=== PATIENT | female | born 1935 | race Caucasian/White ===

== ENCOUNTER 2017-03-07 20:18 | Inpatient (IN) | payer MEDICARE, BC ==
--- NOTE | 2017-03-07 21:13 | EDM.PDOC ---
ED HPI GENERAL MEDICAL PROBLEM - General Chief Complaint: Fever Stated Complaint: fever Time Seen by Provider: 03/07/17 20:22 Source of Information: Reports: Patient, Family, RN, RN Notes Reviewed History Limitations: Reports: No Limitations - History of Present Illness INITIAL COMMENTS - FREE TEXT/NARRATIVE: Patient presents to the ED at [facility] with a two day history of fevers, ranging 100-102 orally. Patient states she had felt chilled at times. Patient states she has been feeling more SOB and dyspneic. She does have an upper airway cough, producing a yellow purulent sputum. Patient denies any chest pain. No focal neurological deficits. No focal weakness. Patient states her appetite has been ok, but she admits to not really being a big eater. No N/V/D. According to the patient, she had been given Tylenol at Assisted Living. Patient states she is trying to stay well hydrated with good PO fluid intake. She is feeling more generally weak than usual. Onset: Gradual - Related Data Allergies Allergy/AdvReac Type Severity Reaction Status Date / Time nitrofurantoin Allergy Unknown Cannot Verified 03/07/17 20:40 [From Macrobid] Remember nitrofurantoin Allergy Unknown Cannot Verified 03/07/17 20:40 macrocrystalline Remember [From Macrobid] Penicillins Allergy Unknown Cannot Verified 03/07/17 20:40 Remember Sulfa (Sulfonamide Allergy Cannot Verified 03/07/17 20:40 Antibiotics) Remember alendronate sodium AdvReac Intermediate Nausea Verified 03/07/17 20:40 [From Fosamax] Home Meds: Home Meds Albuterol Sulfate [Albuterol Sulfate HFA] 2 inh IH Q4H PRN 04/18/14 [History] Calcium Carbonate 1,500 mg PO DAILY 04/18/14 [History] Fluticasone/Salmeterol [Advair 100-50] 1 puff INH BID 04/18/14 [History] Metoprolol Tartrate [Lopressor] 25 mg PO BID 04/18/14 [History] Omeprazole Magnesium [Prilosec Otc] 20 mg PO DAILY 04/18/14 [History] Polyethylene Glycol 3350 [MiraLAX] 17 gm PO DAILY PRN 04/18/14 [History] Aspirin 1 tab PO DAILY 03/08/15 [History] Cholecalciferol (Vitamin D3) [Vitamin D3] 2,000 units PO DAILY 03/08/15 [History ] Multivitamin with Minerals [Multiple Vitamin] 1 tab PO DAILY 03/08/15 [History] atorvaSTATin [Lipitor] 20 mg PO BEDTIME #30 tablet 03/17/15 [Rx] Acetaminophen [Tylenol] 650 mg PO Q4H PRN 07/19/16 [History] Ergocalciferol (Vitamin D2) [Vitamin D2] 2,000 unit PO DAILY 07/19/16 [History] Ondansetron [Zofran ODT] 4 mg PO DAILY PRN 07/19/16 [History] Umeclidinium [place] [Incruse Ellipta] 1 puff IH DAILY 07/19/16 [History] Oxybutynin [Oxybutynin ER] 5 mg PO BEDTIME #30 tab.er 08/01/16 [Rx] Cyanocobalamin (Vitamin B-12) [B-12 Dots] 500 mcg PO DAILY 03/07/17 [History] Past Medical History HEENT History: Reports: Macular Degeneration Cardiovascular History: Reports: Arrhythmia, [place] Respiratory History: Reports: COPD Gastrointestinal History: Reports: Other (See Below) Other Gastrointestinal History: sotelo esophagitis Genitourinary History: Reports: None 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 Musculoskeletal History: Reports: None, Osteoarthritis Neurological History: Reports: CVA Oncologic (Cancer) History: Reports: Breast - Past Surgical History HEENT Surgical History: Reports: Cataract Surgery Female Surgical History: Reports: Section, Mastectomy, Tubal Ligation Musculoskeletal Surgical History: Reports: Hip Replacement Social & Family History - Family History Cardiac: Reports: ME Respiratory: Reports: COPD OBGYN: Reports: Musculoskeletal: Reports: Osteoarthritis Oncologic: Reports: Breast - Tobacco Use Smoking Status *Q: Former Smoker Years of Tobacco use: 20 Packs/Tins Daily: 1 Used Tobacco, but Quit: Yes Month Tobacco Last Used: June Second Hand Smoke Exposure: No - Caffeine Use Caffeine Use: Reports: Coffee - Alcohol Use Days Per Week of Alcohol Use: 0 - Recreational Drug Use Recreational Drug Use: No ED ROS GENERAL - Review of Systems Review Of Systems: See Below Constitutional: Reports: Fever, Chills, Weakness, Decreased Appetite HEENT: Reports: No Symptoms Respiratory: Reports: Shortness of Breath, Cough, Sputum. Denies: Wheezing Cardiovascular: Reports: Dyspnea on Exertion. Denies: Chest Pain, Lightheadedness, Palpitations GI/Abdominal: Denies: Abdominal Pain, Nausea, Vomiting Skin: Reports: No Symptoms Neurological: Reports: Weakness. Denies: Dizziness, Headache ED EXAM, SEPSIS - Physical Exam Exam: See Below Exam Limited By: No Limitations General Appearance: Alert, No Apparent Distress, Thin, Cachetic Ears: Normal External Exam, Normal Canal, Normal TMs Throat/Mouth: Pharyngeal Erythema Neck: Supple Respiratory/Chest: No Respiratory Distress, Decreased Breath Sounds Cardiovascular: No Edema, No Murmur, Tachycardia Peripheral Pulses: 2+: Radial (L), Radial (R) GI/Abdominal: Soft, Non-Tender, Hypoactive Bowel Sounds Extremities: Normal Inspection Neurological: Alert, Oriented Skin: Warm, Dry, Intact, Normal Color, No Rash Course - Vital Signs Last Recorded V/S: Last Vital Signs Temp 37.7 C 03/07/17 20:30 Pulse 111 H 03/07/17 20:30 Resp 18 03/07/17 20:30 BP 129/52 L 03/07/17 20:30 Pulse Ox 93 L 03/07/17 20:30 - Orders/Labs/Meds Orders: Active Orders 24 hr Category Date Time Status Chest 2V [CR] Stat Exams 03/07/17 20:40 Taken CULTURE BLOOD [BC] Stat Lab 03/07/17 21:00 Received CULTURE BLOOD [BC] Stat Lab 03/07/17 21:15 Received UA W/MICROSCOPIC [URIN] Stat Lab 03/07/17 20:39 Uncollected Sodium Chloride 0.9% [Saline Flush] Med 03/07/17 20:41 Active 10 ml FLUSH ASDIRECTED PRN Blood Culture x2 Reflex Set [OM.PC] Stat Oth 03/07/17 20:38 Ordered Peripheral IV Insertion Adult [OM.PC] Routine Oth 03/07/17 20:41 Ordered Medication Orders Sodium Chloride (Saline Flush) 10 ml FLUSH ASDIRECTED PRN PRN Reason: Keep Vein Open Labs: Laboratory Tests 03/07/17 03/07/17 03/07/17 Range/Units 21:00 21:00 21:00 WBC 15.1 H (4.0-10.0) x10^3/uL RBC 3.80 L (4.00-5.50) x10^6/uL Hgb 11.3 L D (12.0-16.0) g/dL Hct 35.0 (33.0-47.0) % MCV 92.1 (78.0-93.0) fL MCH 29.7 (26.0-32.0) pg MCHC 32.3 (32.0-36.0) g/dL RDW Coeff of Gamaliel 14.2 (10.0-15.0) % Plt Count 170 (130-400) x10^3/uL Neut % (Auto) 83.8 H (50.0-80.0) % Lymph % (Auto) 7.2 L (25.0-50.0) % [place] % (Auto) 8.8 (2.0-11.0) % Eos % (Auto) 0.1 (0.0-4.0) % Baso % (Auto) 0.1 L (0.2-1.2) % Sodium 139 (136-145) mmol/L Potassium 4.0 (3.5-5.1) mmol/L Chloride 101 (98-107) mmol/L Carbon Dioxide 27 (21-32) mmol/L BUN 14 (7-18) mg/dL Creatinine 1.1 H (0.55-1.02) mg/dL Est Cr Clr Drug Dosing TNP Estimated GFR (MDRD) 47 Glucose 126 H (74-106) mg/dL Lactic Acid 1.1 (0.4-2.0) mmol/L Calcium 9.0 (8.5-10.1) mg/dL C-Reactive Protein 26.9 H (<=0.9) mg/dL Meds: Medications Generic Name Dose Route Start Last Admin Trade Name Freq PRN Reason Stop Dose Admin Sodium Chloride 10 ml 03/07/17 20:41 Saline Flush FLUSH ASDIRECTED PRN Keep Vein Open Discontinued Medications Generic Name Dose Route Start Last Admin Trade Name Freq PRN Reason Stop Dose Admin Sodium Chloride 1,000 mls @ 999 mls/hr 03/07/17 20:42 03/07/17 21:15 Normal Saline IV 03/07/17 21:42 999 mls/hr ONETIME ONE Administration Departure - Departure Time of Disposition: 21:58 Disposition: Admitted As Inpatient 64 Condition: Fair Clinical Impression: Elevated C-reactive protein, Shortness of breath Pneumonia Qualifiers: Pneumonia type: due to unspecified organism Laterality: left Lung location: lower lobe of lung Qualified Code(s): J18.1 - Lobar pneumonia, unspecified organism Leukocytosis Qualifiers: Leukocytosis type: unspecified Qualified Code(s): D72.829 - Elevated white blood cell count, unspecified - Discharge Information - Problem List & Annotations (1) Pneumonia SNOMED Code(s): 945110976 Code(s): J18.9 - PNEUMONIA, UNSPECIFIED ORGANISM Status: Acute Current Visit: Yes Qualifiers: Pneumonia type: due to unspecified organism Laterality: left Lung location: lower lobe of lung Qualified Code(s): J18.1 - Lobar pneumonia, unspecified organism (2) Leukocytosis SNOMED Code(s): 261992013, 821526943 Code(s): D72.829 - ELEVATED WHITE BLOOD CELL COUNT, UNSPECIFIED Status: Acute Current Visit: Yes Qualifiers: Leukocytosis type: unspecified Qualified Code(s): D72.829 - Elevated white blood cell count, unspecified (3) Shortness of breath SNOMED Code(s): 444999447 Code(s): R06.02 - SHORTNESS OF BREATH Status: Acute Current Visit: Yes (4) Elevated C-reactive protein SNOMED Code(s): 349388688 Code(s): R79.82 - ELEVATED C-REACTIVE PROTEIN (CRP) Status: Acute Current Visit: Yes (5) Fever SNOMED Code(s): 530547900 Code(s): R50.9 - FEVER, UNSPECIFIED Status: Acute Current Visit: Yes Qualifiers: Fever type: unspecified Qualified Code(s): R50.9 - Fever, unspecified - Problem List Review Problem List Initiated/Reviewed/Updated: Yes - My Orders Last 24 Hours: My Active Orders 03/07/17 20:38 Blood Culture x2 Reflex Set [OM.PC] Stat 03/07/17 20:39 UA W/MICROSCOPIC [URIN] Stat 03/07/17 20:40 Chest 2V [CR] Stat 03/07/17 20:41 Sodium Chloride 0.9% [Saline Flush] 10 ml FLUSH ASDIRECTED PRN Peripheral IV Insertion Adult [OM.PC] Routine 03/07/17 21:00 CULTURE BLOOD [BC] Stat 03/07/17 21:15 CULTURE BLOOD [BC] Stat - Assessment/Plan Admission H&P: Please use this note as an admission H&P Last 24 Hours: My Active Orders 03/07/17 20:38 Blood Culture x2 Reflex Set [OM.PC] Stat 03/07/17 20:39 UA W/MICROSCOPIC [URIN] Stat 03/07/17 20:40 Chest 2V [CR] Stat 03/07/17 20:41 Sodium Chloride 0.9% [Saline Flush] 10 ml FLUSH ASDIRECTED PRN Peripheral IV Insertion Adult [OM.PC] Routine 03/07/17 21:00 CULTURE BLOOD [BC] Stat 03/07/17 21:15 CULTURE BLOOD [BC] Stat
[2017-03-07] MEDS: Sodium Chloride 0.9% 1,000 ML IV ONE ×2 (21:15→23:51)
[2017-03-07 21:46] LABS: CHLORIDE,CL 101 mmol/L (98-107); SODIUM,NA 139 mmol/L (136-145)
[2017-03-07] MEDS ORDERED: Azithromycin 250 MG Tab PO ONE (22:46)
[2017-03-07] MEDS ORDERED: Polyethylene Glycol 3350 Powder 17 GM Packet PO PRN (22:47)
[2017-03-07] MEDS ORDERED: cefTRIAXone 1 GM Vial IVPUSH STA (22:49)
[2017-03-07] MEDS: Sodium Chloride 0.9% 10 ML Syringe FLUSH PRN (23:02)
--- NOTE | 2017-03-07 23:02 | PCM.HP ---
H&P History of Present Illness - General Date of Service: 03/07/17 Source of Information: Patient History Limitations: Reports: No Limitations - History of Present Illness Initial Comments - Free Text/Narative: Mrs. Hernandez is an 81 yo female with PMH of emphysema, hypertension, CAD, cerebrovascular disease, pulmonary nodules, hyperglycemia, hyperlipidemia, tobacco use disorder, vascular dementia, mixed incontinence, osteoporosis, and DJD (back, knees, hips) who presented to the ED this evening mainly for upper chest pain and fever (Tmax 102.8). She has had 4 days of decreased appetite, cough, and shortness of breath. She had some vomiting and abdominal pain earlier in the week but that has since resolved. She states that her chest pain was not really chest pain but that it was really a sore throat, which is also now resolved. She denies any true chest pain. She has overall been feeling unwell and weak also throughout the week. The fever is not new today but has been slowly increasing to the maximum recording today. She denies any known sick contacts. She has not taken any OTC medications. ADDENDUM: After coming up to the floor, the patient noted she was having chest pain. The pain is located substernally in the upper chest and radiates into her throat. She now states that she has been having this pain off and on all day. It is rated 4-5/10 and does not radiate anywhere. She has mildly increased shortness of breath but no nausea or diaphoresis. She states this is not sharp or changing with coughing or deep breaths and it is not feel like prior ACS. 2nd ADDENDUM: Pain is now completely resolved within minutes of getting the Tums. - Related Data Allergies/Adverse Reactions: Allergies Allergy/AdvReac Type Severity Reaction Status Date / Time nitrofurantoin Allergy Unknown Cannot Verified 03/07/17 20:40 [From Macrobid] Remember nitrofurantoin Allergy Unknown Cannot Verified 03/07/17 20:40 macrocrystalline Remember [From Macrobid] Penicillins Allergy Unknown Cannot Verified 03/07/17 20:40 Remember Sulfa (Sulfonamide Allergy Cannot Verified 03/07/17 20:40 Antibiotics) Remember alendronate sodium AdvReac Intermediate Nausea Verified 03/07/17 20:40 [From Fosamax] Home Medications: Home Meds Albuterol Sulfate [Albuterol Sulfate HFA] 2 inh IH Q4H PRN 04/18/14 [History] Calcium Carbonate 1,500 mg PO DAILY 04/18/14 [History] Fluticasone/Salmeterol [Advair 100-50] 1 puff INH BID 04/18/14 [History] Metoprolol Tartrate [Lopressor] 25 mg PO BID 04/18/14 [History] Omeprazole Magnesium [Prilosec Otc] 20 mg PO DAILY 04/18/14 [History] Polyethylene Glycol 3350 [MiraLAX] 17 gm PO DAILY PRN 04/18/14 [History] Aspirin 1 tab PO DAILY 03/08/15 [History] Cholecalciferol (Vitamin D3) [Vitamin D3] 2,000 units PO DAILY 03/08/15 [History ] Multivitamin with Minerals [Multiple Vitamin] 1 tab PO DAILY 03/08/15 [History] atorvaSTATin [Lipitor] 20 mg PO BEDTIME #30 tablet 03/17/15 [Rx] Acetaminophen [Tylenol] 650 mg PO Q4H PRN 07/19/16 [History] Ergocalciferol (Vitamin D2) [Vitamin D2] 2,000 unit PO DAILY 07/19/16 [History] Ondansetron [Zofran ODT] 4 mg PO DAILY PRN 07/19/16 [History] Umeclidinium [place] [Incruse Ellipta] 1 puff IH DAILY 07/19/16 [History] Oxybutynin [Oxybutynin ER] 5 mg PO BEDTIME #30 tab.er 08/01/16 [Rx] Cyanocobalamin (Vitamin B-12) [B-12 Dots] 500 mcg PO DAILY 03/07/17 [History] Past Medical History HEENT History: Reports: Cataract, Glaucoma, Macular Degeneration Cardiovascular History: Reports: Arrhythmia, CAD, High Cholesterol, Hypertension , [place] Respiratory History: Reports: COPD Gastrointestinal History: Reports: PUD, Other (See Below) Other Gastrointestinal History: sotelo esophagitis Genitourinary History: Reports: None 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 Musculoskeletal History: Reports: Osteoarthritis Neurological History: Reports: CVA, Other (See Below) (vascular dementia) Psychiatric History: Reports: None Endocrine/Metabolic History: Reports: Osteoporosis Hematologic History: Reports: Anemia Immunologic History: Reports: None Oncologic (Cancer) History: Reports: Breast Dermatologic History: Reports: None - Infectious Disease History Infectious Disease History: Reports: None - Past Surgical History HEENT Surgical History: Reports: Cataract Surgery GI Surgical History: Reports: Cholecystectomy Female Surgical History: Reports: Section, Hysterectomy, Mastectomy , Salpingo-Oophorectomy, Tubal Ligation Musculoskeletal Surgical History: Reports: Hip Replacement Social & Family History - Family History Cardiac: Reports: [place] Respiratory: Reports: COPD OBGYN: Reports: Musculoskeletal: Reports: Osteoarthritis Oncologic: Reports: Breast, Other (See Below) (stomach) - Tobacco Use Smoking Status *Q: Current Every Day Smoker Tobacco Use Within Last Twelve Months: Cigarettes Years of Tobacco use: 20 Packs/Tins Daily: 1 Used Tobacco, but Quit: Yes Tobacco Last Used: June Hand Smoke Exposure: No - Caffeine Use Caffeine Use: Reports: Coffee - Alcohol Use Alcohol Use History: No Days Per Week of Alcohol Use: 0 - Recreational Drug Use Recreational Drug Use: No - Living Situation & Occupation Living situation: Reports: , Assisted Living Occupation: Retired H&P Review of Systems - Review of Systems: Review Of Systems: See Below General: Reports: Fever, Malaise, Weakness HEENT: Reports: No Symptoms Pulmonary: Reports: Shortness of Breath, Cough Cardiovascular: Reports: No Symptoms Gastrointestinal: Reports: No Symptoms Genitourinary: Reports: No Symptoms Musculoskeletal: Reports: No Symptoms Skin: Reports: No Symptoms Neurological: Reports: No Symptoms Exam - Exam Exam: See Below - Vital Signs Vital Signs: Last Vital Signs Temp 37.7 C 03/07/17 20:30 Pulse 111 H 03/07/17 20:30 Resp 18 03/07/17 20:30 BP 129/52 L 03/07/17 20:30 Pulse Ox 93 L 03/07/17 20:30 Weight: 50.893 kg - Exam General: Alert, Oriented, Cooperative HEENT: Conjunctiva Clear, Mucosa Moist & [place], Posterior Pharynx Clear, Pupils Equal, Pupils Reactive, TMs Clear Neck: Supple, Trachea Midline. No: Lymphadenopathy, Thyromegaly Lungs: Decreased Breath Sounds (LLL), Crackles (LLL) Cardiovascular: Regular Rhythm, Normal S1, Normal S2, Tachycardia. No: Systolic Murmur, Diastolic Murmur Abdomen: Normal Bowel Sounds, Soft. No: Organomegaly, Peritoneal Signs, Distention, Tenderness, Mass Extremities: Normal Inspection, Normal Pulses. No: Edema Skin: Warm, Dry, Intact Neurological: No: Focal Deficit - Patient Data Result Diagrams: 03/07/17 21:00 03/07/17 21:00 *Q Meaningful Use (ADM) - VTE *Q VTE Criteria *Q: - Stroke *Q Stroke Criteria *Q: - AMI *Q AMI Criteria *Q: - Problem List (1) Sepsis SNOMED Code(s): 86376847 ICD Code: A41.9 - SEPSIS, UNSPECIFIED ORGANISM Status: Acute Current Visit: Yes Problem Details: - Diagnosis made based on tachycardia, fever, and leukocytosis. - Secondary to pneumonia. No other symptoms to suggest alternative source but urine will be obtained to exclude this. - IV fluids overnight. - Antibiotics as below. Qualifiers: Sepsis type: sepsis due to unspecified organism Qualified Code(s): A41.9 - Sepsis, unspecified organism (2) Community acquired pneumonia SNOMED Code(s): 820446475 ICD Code: J18.9 - PNEUMONIA, UNSPECIFIED ORGANISM Status: Acute Current Visit: Yes Problem Details: - Patient has history, exam, labs, and x-ray findings supporting the diagnosis of pneumonia. - No MDR risk factors. - Therefore, will treat with ceftriaxone and azithromycin. She has PCN listed on her allergies here but this is not on her list in [facility] and she has received cefazolin, cephalexin, and augmentin all within the past year (augmentin was 1 month ago). In this case, it should be fine to go ahead and treat with ceftriaxone. (3) COPD (chronic obstructive pulmonary disease) SNOMED Code(s): 24544328 ICD Code: J44.9 - CHRONIC OBSTRUCTIVE PULMONARY DISEASE, UNSPECIFIED Status : Chronic Priority: High Current Visit: No Problem Details: - No exam findings to suggest COPD exacerbation at this time. - Therefore, will leave neb treatments PRN and hold off on prednisone. - Will reconsider depending on clinical course. Qualifiers: COPD type: emphysema Emphysema type: unspecified Qualified Code(s): J43.9 - Emphysema, unspecified (4) Chest pain SNOMED Code(s): 25878461 ICD Code: R07.9 - CHEST PAIN, UNSPECIFIED Status: Acute Current Visit: Yes Problem Details: - EKG was obtained at the time of chest pain and is unremarkable. - Will also get a troponin but my suspicion for cardiac ischemia is very low. I also do not feel the likelihood of PE is high either based on absence of risk factors and other more plausible causes. - More likely GI based on radiation into the throat and resolution with Tums. - If tachycardia does not improve overnight and chest pain recurs, will reconsider PE tomorrow and get a d-dimer. Qualifiers: Chest pain type: other chest pain Qualified Code(s): R07.89 - Other chest pain; R07.8 - Other chest pain Problem List Initiated/Reviewed/Updated: Yes Orders Last 24hrs: Active Orders 24 hr Category Date Time Status Notify Provider Vital Signs [RC] ASDIRECTED Care 03/07/17 22:38 Ordered Oxygen Therapy [RC] PRN Care 03/07/17 22:38 Ordered Up With Assistance [RC] ASDIRECTED Care 03/07/17 22:38 Ordered VTE/DVT Education [RC] PER UNIT ROUTINE Care 03/07/17 22:38 Ordered VTE/DVT Education [RC] PER UNIT ROUTINE Care 03/07/17 22:43 Ordered Vital Signs [RC] Q4H Care 03/07/17 22:38 Ordered Regular Diet [DIET] Diet 03/08/17 Breakfast Ordered Acetaminophen [Tylenol] Med 03/07/17 22:38 Ordered 650 mg PO Q4H PRN Aspirin Med 03/08/17 08:00 Ordered 1 tab PO DAILY Azithromycin [Zithromax] Med 03/07/17 22:45 Ordered 250 mg PO Q24H Enoxaparin [Lovenox] Med 03/08/17 08:00 Ordered 40 mg SUBCUT DAILY Fluticasone/Salmeterol [Advair 100-50] Med 03/08/17 08:00 Ordered 1 puff INH BID Metoprolol Tartrate [Lopressor] Med 03/08/17 08:00 Ordered 25 mg PO BID Omeprazole Magnesium [Prilosec Otc] Med 03/08/17 08:00 Ordered 20 mg PO DAILY Oxybutynin [Oxybutynin ER] Med 03/08/17 08:00 Ordered 5 mg PO DAILY Polyethylene Glycol 3350 [MiraLAX] Med 03/07/17 22:47 Ordered 17 gm PO DAILY PRN Umeclidinium [place] [Incruse Ellipta] Med 03/08/17 08:00 Ordered 1 puff IH DAILY atorvaSTATin [Lipitor] Med 03/08/17 20:00 Ordered 20 mg PO BEDTIME Resuscitation Status Routine Resus Stat 03/07/17 22:38 Ordered Medication Orders Acetaminophen (Tylenol) 650 mg PO Q4H PRN PRN Reason: Pain (Mild 1-3)/fever Aspirin (Aspirin) mg PO DAILY ZACKARY Atorvastatin Calcium (Lipitor) 20 mg PO BEDTIME ZACKARY Azithromycin (Zithromax) 250 mg PO Q24H ZACKARY Enoxaparin Sodium (Lovenox) 30 mg SUBCUT DAILY ZACKARY Metoprolol Tartrate (Lopressor) 25 mg PO BID ZACKARY Non-Formulary Medication (Fluticasone/Salmeterol [Advair 100-50]) 1 puff INH BID ZACKARY Non-Formulary Medication (Omeprazole Magnesium [Prilosec Otc]) 20 mg PO DAILY ZACKARY Non-Formulary Medication (Umeclidinium [place] [Incruse Ellipta]) 1 puff IH DAILY ZACKARY Oxybutynin Chloride (Oxybutynin Er) 5 mg PO DAILY ZACKARY Polyethylene Glycol (Miralax) 17 gm PO DAILY PRN PRN Reason: Constipation Sodium Chloride (Saline Flush) 10 ml FLUSH ASDIRECTED PRN PRN Reason: Keep Vein Open Assessment/Plan Comment:: 81 yo female admitted with CAP after presenting with shortness of breath, cough , and fevers. Will treat with IV ceftriaxone and PO azithromycin as above. Will do IV fluids overnight. Can have nebs PRN. Troponin will be done for assessment of chest pain but this is presumed to be GI. Tums PRN. Otherwise, continue home medications with the exception of her vitamins. Patient wishes to be DNR/DNI. She will likely be on lovenox for VTE prophylaxis but we will reassess in the morning and start it then. Anticipate 48-72 hour hospital stay.
[2017-03-07] MEDS ORDERED: Calcium Carbonate 750 MG Tab.Chew PO PRN (23:30)
[2017-03-07] MEDS ORDERED: Sodium Chloride 0.9% 1,000 ML IV SCH (23:45)
[2017-03-07] MEDS: Acetaminophen 325 MG Tab PO PRN (23:55)
[2017-03-08] MEDS: Ipratropium 0.02% 0.5 MG/2.5 ML Neb Soln NEB SCH ×4 (00:44→18:28)
[2017-03-08 07:45] LABS: CHLORIDE,CL 108 mmol/L (98-107); SODIUM,NA 144 mmol/L (136-145)
[2017-03-08] MEDS: Metoprolol Tartrate 25 MG Tab PO SCH ×2 (07:54→20:20)
[2017-03-08] MEDS: Omeprazole 20 MG Cap.CR PO SCH (07:54)
[2017-03-08] MEDS: Aspirin 81 MG Tab.Chew PO SCH (07:54)
[2017-03-08] MEDS: Formoterol/Mometasone 100-5 MCG 8.8 GM Inhaler IH SCH ×2 (07:56→20:20)
[2017-03-08] MEDS ORDERED: Oxybutynin 5 MG Tab.ER PO SCH (08:00)
[2017-03-08] MEDS ORDERED: Enoxaparin 30 MG/0.3 ML Syringe SUBCUT SCH (08:00)
[2017-03-08] MEDS ORDERED: Albuterol 0.083% 2.5 MG/3 ML Neb Soln NEB PRN (10:12)
--- NOTE | 2017-03-08 10:13 | PCM.PN ---
- General Info Date of Service: 03/08/17 Subjective Update: Feels about the same this morning. Still having the intermittent chest discomfort. Breathing is about the same. No fever or chills. Appetite remains poor but she has had no vomiting or diarrhea. - Review of Systems General: Reports: No Symptoms HEENT: Reports: no symptoms Pulmonary: Reports: shortness of breath, cough Cardiovascular: Reports: Chest Pain. Denies: Dyspnea on Exertion, Edema, Lightheadedness Gastrointestinal: Reports: No symptoms Genitourinary: Reports: no symptoms Musculoskeletal: Reports: no symptoms Skin: Reports: no symptoms - Patient Data Vitals - most recent: Last Vital Signs Temp 36.8 C 03/08/17 10:00 Pulse 94 03/08/17 10:00 Resp 18 03/08/17 10:00 BP 110/86 03/08/17 10:00 Pulse Ox 96 03/08/17 10:00 Weight - most recent: 50.893 kg I&O - last 24 hours: Intake & Output 03/07/17 03/08/17 03/08/17 22:59 06:59 14:59 Intake Total 1424 Output Total 550 Balance 874 Lab Results last 24 hrs: Laboratory Results - last 24 hr 03/08/17 03/08/17 03/08/17 Range/Units 00:09 07:04 07:04 WBC 10.5 H (4.0-10.0) x10^3/uL RBC 3.15 L (4.00-5.50) x10^6/uL Hgb 9.5 L D (12.0-16.0) g/dL Hct 29.2 L (33.0-47.0) % MCV 92.7 (78.0-93.0) fL MCH 30.2 (26.0-32.0) pg MCHC 32.5 (32.0-36.0) g/dL RDW Coeff of Gamaliel 14.0 (10.0-15.0) % Plt Count 136 (130-400) x10^3/uL Neut % (Auto) 81.1 H (50.0-80.0) % Lymph % (Auto) 8.9 L (25.0-50.0) % [place] % (Auto) 9.2 (2.0-11.0) % Eos % (Auto) 0.6 (0.0-4.0) % Baso % (Auto) 0.2 (0.2-1.2) % Sodium 144 (136-145) mmol/L Potassium 3.8 (3.5-5.1) mmol/L Chloride 108 H (98-107) mmol/L Carbon Dioxide 25 (21-32) mmol/L BUN 11 (7-18) mg/dL Creatinine 0.8 (0.55-1.02) mg/dL Est Cr Clr Drug Dosing TNP Estimated GFR (MDRD) > 60 Glucose 100 (74-106) mg/dL Calcium 7.9 L (8.5-10.1) mg/dL Urine Color Dark yellow H (YELLOW) Urine Appearance Slightly cloudy H (CLEAR) Urine pH 6.0 (5.0-8.0) Ur Specific [place] 1.010 Urine Protein 30 H (NEGATIVE) mg/dL Urine Glucose (UA) Negative (NEGATIVE) mg/dL Urine Ketones Trace H (NEGATIVE) mg/dL Urine Occult Blood Negative (NEGATIVE) Urine Nitrite Negative (NEGATIVE) Urine Bilirubin Negative (NEGATIVE) Urine Urobilinogen 0.2 (0.2) EU/dL Ur Leukocyte Esterase Small H (NEGATIVE) Urine RBC Not seen (NOT SEEN) /HPF Urine WBC 0-5 (NOT SEEN) /HPF Ur Squamous Epith Cells Few H (NEGATIVE) /HPF Urine Bacteria Not seen (NEGATIVE) /HPF Urine Mucus Rare H (NEGATIVE) /LPF Med Orders - Current: Current Medications Acetaminophen (Tylenol) 650 mg PO Q4H PRN PRN Reason: Pain (Mild 1-3)/fever Last Admin: 03/07/17 23:55 Dose: 650 mg Aspirin (Aspirin) 81 mg PO DAILY [facility] Last Admin: 03/08/17 07:54 Dose: 81 mg Atorvastatin Calcium (Lipitor) 20 mg PO BEDTIME [place] Azithromycin (Zithromax) 250 mg PO Q24H [facility] Calcium Carbonate/Glycine (Tums Extra Strength) 750 mg PO Q8H PRN PRN Reason: Dyspepsia Last Admin: 03/07/17 23:54 Dose: 750 mg Sodium Chloride (Normal Saline) 1,000 mls @ 75 mls/hr IV ASDIRECTED [facility] Last Admin: 03/07/17 23:54 Dose: 75 mls/hr Ipratropium [place] (Atrovent) 0.5 mg NEB Q6HRRT [facility] Last Admin: 03/08/17 07:54 Dose: 0.5 mg Metoprolol Tartrate (Lopressor) 25 mg PO BID [facility] Last Admin: 03/08/17 07:54 Dose: 25 mg Mometasone Furoate/Formoterol Fumar (Dulera 100-5 Mcg) 0 puff IH BID [facility] Last Admin: 03/08/17 07:56 Dose: 2 puff Omeprazole (Omeprazole) 20 mg PO DAILY [facility] Last Admin: 03/08/17 07:54 Dose: 20 mg Oxybutynin Chloride (Oxybutynin Er) 5 mg PO DAILY [facility] Last Admin: 03/08/17 07:54 Dose: 5 mg Polyethylene Glycol (Miralax) 17 gm PO DAILY PRN PRN Reason: Constipation Sodium Chloride (Saline Flush) 10 ml FLUSH ASDIRECTED PRN PRN Reason: Keep Vein Open Last Admin: 03/07/17 23:02 Dose: 10 ml Discontinued Medications Azithromycin (Zithromax) 500 mg PO ONETIME ONE Stop: 03/07/17 22:47 Last Admin: 03/07/17 22:58 Dose: 500 mg Ceftriaxone Sodium (Rocephin) 1 gm IVPUSH Q24H STA Stop: 03/07/17 22:50 Last Admin: 03/07/17 22:58 Dose: 1 gm Enoxaparin Sodium (Lovenox) 30 mg SUBCUT DAILY [facility] Sodium Chloride (Normal Saline) 1,000 mls @ 999 mls/hr IV ONETIME ONE Stop: 03/07/17 21:42 Last Admin: 03/07/17 23:51 Dose: 999 mls/hr - Exam General: alert, no acute distress HEENT: Pupils equal, Pupils reactive, Mucous membr. moist/pink Neck: supple, no thyromegaly. No: lymphadenopathy Lungs: Crackles (left lower lobe; lungs otherwise CTAB) Cardiovascular: Regular Rate, Regular Rhythm, No Murmurs Abdomen: bowel sounds present, soft, no tenderness, no distension Extremities: no edema, normal pulses, no calf tenderness Skin: warm, dry, intact - Problem List & Annotations (1) Sepsis SNOMED Code(s): 37524497 Code(s): A41.9 - SEPSIS, UNSPECIFIED ORGANISM Status: Acute Current Visit : Yes Qualifiers: Sepsis type: sepsis due to unspecified organism Qualified Code(s): A41.9 - Sepsis, unspecified organism Annotation/Comment:: - Resolving; HR and leukocytosis are downtrending, no fever since admission. - Secondary to pneumonia. No other symptoms to suggest alternative source. U/A clear. - IV fluids overnight but will d/c today and allow her to ad constance PO given improvement in HR today. - Antibiotics as below. (2) Community acquired pneumonia SNOMED Code(s): 482557325 Code(s): J18.9 - PNEUMONIA, UNSPECIFIED ORGANISM Status: Acute Current Visit: Yes Annotation/Comment:: - Patient has history, exam, labs, and x-ray findings supporting the diagnosis of pneumonia. - No MDR risk factors. - Continue ceftriaxone and azithromycin. (3) COPD (chronic obstructive pulmonary disease) SNOMED Code(s): 09508294 Code(s): J44.9 - CHRONIC OBSTRUCTIVE PULMONARY DISEASE, UNSPECIFIED Status : Chronic Priority: High Current Visit: No Qualifiers: COPD type: emphysema Emphysema type: unspecified Qualified Code(s): J43.9 - Emphysema, unspecified Annotation/Comment:: - No exam findings to suggest COPD exacerbation at this time. - Continue home medications. - Will do neb treatments PRN. - However, will continue to hold off on prednisone. Will reconsider depending on clinical course. (4) Chest pain SNOMED Code(s): 01691887 Code(s): R07.9 - CHEST PAIN, UNSPECIFIED Status: Acute Current Visit: Yes Qualifiers: Chest pain type: other chest pain Qualified Code(s): R07.89 - Other chest pain; R07.8 - Other chest pain Annotation/Comment:: - EKG was obtained at the time of chest pain and was unremarkable. Troponin was also negative. - In the setting of a very low predictive value for ACS initially, this is adequate to rule this out. Given the pain had been occurring all day, the troponins were trended. - I still do not feel the likelihood of PE is high either based on absence of risk factors and other more plausible causes. HR has improved and chest pain is not consistent with PE. - More likely GI based on radiation into the throat and resolution with Tums. (5) Anemia SNOMED Code(s): 611867078 Code(s): D64.9 - ANEMIA, UNSPECIFIED Status: Acute Current Visit: Yes Qualifiers: Anemia type: unspecified type Qualified Code(s): D64.9 - Anemia, unspecified Annotation/Comment:: - Hemoglobin down 2 points today, but this is closer to previous readings here. - No evidence of bleeding. - Will recheck tomorrow, sooner PRN. - Problem List Review Problem List Initiated/Reviewed/Updated: Yes - My Orders Last 24 Hours: My Active Orders 03/07/17 22:38 Notify Provider Vital Signs [RC] ASDIRECTED Oxygen Therapy [RC] PRN Up With Assistance [RC] ASDIRECTED VTE/DVT Education [RC] PER UNIT ROUTINE Vital Signs [RC] 06,10,14,18,22,02 Acetaminophen [Tylenol] 650 mg PO Q4H PRN Resuscitation Status Routine 03/07/17 22:43 VTE/DVT Education [RC] PER UNIT ROUTINE 03/07/17 22:47 Polyethylene Glycol 3350 [MiraLAX] 17 gm PO DAILY PRN 03/07/17 23:30 Calcium Carbonate [Tums Extra Strength] 750 mg PO Q8H PRN 03/07/17 23:33 EKG 12 Lead [EKG Documentation Completion] [RC] STAT 03/07/17 23:45 Sodium Chloride 0.9% [Normal Saline] 1,000 ml IV ASDIRECTED 03/08/17 01:00 Ipratropium [Atrovent] 0.5 mg NEB Q6HRRT 03/08/17 08:00 Aspirin 81 mg PO DAILY Metoprolol Tartrate [Lopressor] 25 mg PO BID Mometasone/Formoterol [Dulera 100-5 MCG] 0 puff IH BID Omeprazole 20 mg PO DAILY Oxybutynin [Oxybutynin ER] 5 mg PO DAILY 03/08/17 10:07 Antiembolic Devices [RC] PER UNIT ROUTINE SCD [Sequential Compression Device] [OM.PC] Routine VTE Pharmacological Contraindications [AST] Click To Edit 03/08/17 20:00 atorvaSTATin [Lipitor] 20 mg PO BEDTIME 03/08/17 21:00 Azithromycin [Zithromax] 250 mg PO Q24H 03/08/17 Breakfast Regular Diet [DIET] 03/09/17 05:11 BASIC METABOLIC PANEL,BMP [CHEM] Routine CBC WITH AUTO DIFF [HEME] Routine - Assessment Assessment:: 81 yo female admitted with pneumonia after presenting with fever, cough, and shortness of breath. See details under problem list above. Continue IV ceftriaxone and PO azithromycin today. Recheck CBC tomorrow am. Patient remains on inpatient status - will likely dismiss home tomorrow. Given hemoglobin drop ( although I think this is a return to baseline given last was in the 9 range also ), would not recommend pharmacologic VTE prophylaxis. She states she would decline this anyway; therefore, we will do SCD's. She is DNR/DNI. - Plan Plan:: 81 yo female admitted with CAP after presenting with shortness of breath, cough , and fevers. Will treat with IV ceftriaxone and PO azithromycin as above. Will do IV fluids overnight. Can have nebs PRN. Troponin will be done for assessment of chest pain but this is presumed to be GI. Tums PRN. Otherwise, continue home medications with the exception of her vitamins. Patient wishes to be DNR/DNI. She will likely be on lovenox for VTE prophylaxis but we will reassess in the morning and start it then. Anticipate 48-72 hour hospital stay.
[2017-03-08] MEDS: Acetaminophen 325 MG Tab PO PRN ×2 (14:56→20:25)
[2017-03-08] MEDS ORDERED: atorvaSTATin 10 MG Tab PO SCH (20:00)
[2017-03-08] MEDS ORDERED: Azithromycin 250 MG Tab PO SCH (21:00)
[2017-03-09] MEDS: Ipratropium 0.02% 0.5 MG/2.5 ML Neb Soln NEB SCH ×3 (00:37→12:38)
[2017-03-09] MEDS: Aspirin 81 MG Tab.Chew PO SCH (07:52)
[2017-03-09] MEDS: Metoprolol Tartrate 25 MG Tab PO SCH (07:53)
[2017-03-09] MEDS: Omeprazole 20 MG Cap.CR PO SCH (07:53)
[2017-03-09] MEDS: Formoterol/Mometasone 100-5 MCG 8.8 GM Inhaler IH SCH (07:54)
[2017-03-09] MEDS ORDERED: Oxybutynin 5 MG Tab PO SCH (08:00)
[2017-03-09 08:28] LABS: CHLORIDE,CL 107 mmol/L (98-107); SODIUM,NA 142 mmol/L (136-145)
[2017-03-09] MEDS ORDERED: cefTRIAXone 1 GM Vial IVPUSH ONE (09:32)
--- NOTE | 2017-03-09 09:40 | PCM.DCSUM1 ---
Discharge Summary - Hospital Course Brief History: Mrs. Hernandez is an 81 yo female who was admitted with community acquired pneumonia after presenting with shortness of breath and fevers. - Discharge Data Discharge Date: 03/09/17 Discharge Disposition: Home, Self-Care 01 Condition: Good - Discharge Diagnosis/Problem(s) (1) Sepsis SNOMED Code(s): 25524833 ICD Code: A41.9 - SEPSIS, UNSPECIFIED ORGANISM Status: Acute Current Visit: Yes Problem Details: Patient did meet sepsis criteria on admit due to tachycardia, leukocytosis, and fever. She was given IV fluids for 12 hours with improvement in tachycardia. She no longer meets sepsis criteria. Her heart rate is still fast but it looks like she persistently runs on the higher side, even in clinic. This is secondary to pneumonia; please see below. Qualifiers: Sepsis type: sepsis due to unspecified organism Qualified Code(s): A41.9 - Sepsis, unspecified organism (2) Community acquired pneumonia SNOMED Code(s): 135574751 ICD Code: J18.9 - PNEUMONIA, UNSPECIFIED ORGANISM Status: Acute Current Visit: Yes Problem Details: Patient had history, exam, labs, and x-ray findings supporting the diagnosis of pneumonia. She did not meet criteria for healthcare associated pneumonia; therefore, she was treated with ceftriaxone and azithromycin. Her symptoms progressively improved and she never required oxygen. She is prepared for dismissal today. Apparently, the way I ordered her ceftriaxone caused it to be discontinued after 1 dose; therefore, we will give her another dose this morning. She will stay to get her first dose of cefdinir this afternoon so that we can watch her given possible PCN allergy (has tolerated ceftriaxone here without incident) and so that we can get her enough antibiotic today to last until tomorrow since she will not be able to fill prescriptions today. (3) COPD (chronic obstructive pulmonary disease) SNOMED Code(s): 71815657 ICD Code: J44.9 - CHRONIC OBSTRUCTIVE PULMONARY DISEASE, UNSPECIFIED Status : Chronic Priority: High Current Visit: No Problem Details: No exam findings to suggest COPD exacerbation at this time. Her home medications were continued. No prednisone was given since she is not having symptoms of a COPD exacerbation. Qualifiers: COPD type: emphysema Emphysema type: unspecified Qualified Code(s): J43.9 - Emphysema, unspecified (4) Chest pain SNOMED Code(s): 88565189 ICD Code: R07.9 - CHEST PAIN, UNSPECIFIED Status: Acute Current Visit: Yes Problem Details: Patient complained of this upon arrival to the floor. EKG was obtained at the time of chest pain and was unremarkable. Troponin was also negative. It was felt this was adequate to rule out an ME. It was also felt that she would be unlikely to have a PE; therefore, a d-dimer was not done. Her symptoms improved with Tums. She did have recurrence of pain at times but this always responded to Tums. Qualifiers: Chest pain type: other chest pain Qualified Code(s): R07.89 - Other chest pain; R07.8 - Other chest pain (5) Anemia SNOMED Code(s): 207447254 ICD Code: D64.9 - ANEMIA, UNSPECIFIED Status: Acute Current Visit: Yes Problem Details: Hemoglobin down 2 points yesterday but suspect this was a return to her usual baseline. No evidence of bleeding. Her hemoglobin is stable today. Qualifiers: Anemia type: unspecified type Qualified Code(s): D64.9 - Anemia, unspecified - Patient Summary/Data Operative Procedure(s) Performed: none Complications: none Consults: none Labs Pending at D/C: none Recommended Follow-up Testing/Procedures: none Planned Operative Procedure(s) after DC: none Hospital Course: Please see details as above. Patient's symptoms improved and she never required oxygen. She will be dismissed today to follow-up later this week in clinic. - Patient Instructions Diet: Usual Diet as Tolerated Activity: As Tolerated Driving: Do Not Drive Showering/Bathing: May Shower Notify Provider of: Fever, Increased Pain, Swelling and Redness, Drainage, Nausea and/or Vomiting - Discharge Plan Prescriptions/Med Rec: Azithromycin [Zithromax] 250 mg PO DAILY #3 tablet Cefdinir [IJD: Cefdinir] 300 mg PO BID #10 capsule Home Medications: Home Meds Albuterol Sulfate [Albuterol Sulfate HFA] 2 puff INH Q4H PRN 04/18/14 [History] Calcium Carbonate 1,500 mg PO DAILY 04/18/14 [History] Fluticasone/Salmeterol [Advair 100-50] 1 puff INH BID 04/18/14 [History] Metoprolol Tartrate [Lopressor] 25 mg PO BID 04/18/14 [History] Omeprazole Magnesium [Prilosec Otc] 20 mg PO DAILY 04/18/14 [History] Polyethylene Glycol 3350 [MiraLAX] 17 gm PO DAILY PRN 04/18/14 [History] Aspirin 1 tab PO DAILY 03/08/15 [History] Cholecalciferol (Vitamin D3) [Vitamin D3] 2,000 units PO DAILY 03/08/15 [History ] Multivitamin with Minerals [Multiple Vitamin] 1 tab PO DAILY 03/08/15 [History] atorvaSTATin [Lipitor] 20 mg PO BEDTIME #30 tablet 03/17/15 [Rx] Acetaminophen [Tylenol] 650 mg PO Q4H PRN 07/19/16 [History] Ergocalciferol (Vitamin D2) [Vitamin D2] 2,000 unit PO DAILY 07/19/16 [History] Ondansetron [Zofran ODT] 4 mg PO DAILY PRN 07/19/16 [History] Umeclidinium [place] [Incruse Ellipta] 1 puff IH DAILY 07/19/16 [History] Cyanocobalamin (Vitamin B-12) [B-12 Dots] 500 mcg PO DAILY 03/07/17 [History] Oxybutynin 5 mg PO DAILY 03/08/17 [History] Azithromycin [Zithromax] 250 mg PO DAILY #3 tablet 03/09/17 [Rx] Calcium Carbonate [Tums Extra Strength] 750 mg PO Q8H PRN #0 tab.chew 03/09/17 [ Rx] Cefdinir [IJD: Cefdinir] 300 mg PO BID #10 capsule 03/09/17 [Rx] Forms: ED Department Discharge Referrals: Aniya Laws MD [Primary Care Provider] - 03/13/17 - Discharge Summary/Plan Comment DC Time >30 min.: No - General Info Date of Service: 03/09/17 Subjective Update: Feeling much better today. Minimal shortness of breath. Chest discomfort has continued to be intermittent but has always responded to tums. No fever or chills. - Review of Systems General: Reports: No Symptoms HEENT: Reports: no symptoms Pulmonary: Reports: shortness of breath. Denies: cough, wheezing Cardiovascular: Reports: Chest Pain. Denies: Dyspnea on Exertion, Edema Gastrointestinal: Reports: No symptoms Genitourinary: Reports: no symptoms Musculoskeletal: Reports: no symptoms Skin: Reports: no symptoms Neurological: Reports: No Symptoms - Patient Data Vitals - Most Recent: Last Vital Signs Temp 36.9 C 03/09/17 05:56 Pulse 101 H 03/09/17 05:56 Resp 20 03/09/17 05:56 BP 128/79 03/09/17 07:53 Pulse Ox 97 03/09/17 05:56 Weight - Most Recent: 50.893 kg I&O - Last 24 hours: Intake & Output 03/08/17 03/09/17 03/09/17 22:59 06:59 14:59 Output Total 400 Balance -400 Lab Results - Last 24 hrs: Laboratory Results - last 24 hr 03/09/17 03/09/17 Range/Units 07:46 07:46 WBC 9.2 (4.0-10.0) x10^3/uL RBC 3.26 L (4.00-5.50) x10^6/uL Hgb 9.8 L (12.0-16.0) g/dL Hct 30.4 L (33.0-47.0) % MCV 93.3 H (78.0-93.0) fL MCH 30.1 (26.0-32.0) pg MCHC 32.2 (32.0-36.0) g/dL RDW Coeff of Gamaliel 13.9 (10.0-15.0) % Plt Count 156 (130-400) x10^3/uL Neut % (Auto) 76.6 (50.0-80.0) % Lymph % (Auto) 12.8 L (25.0-50.0) % [place] % (Auto) 9.7 (2.0-11.0) % Eos % (Auto) 0.7 (0.0-4.0) % Baso % (Auto) 0.2 (0.2-1.2) % Sodium 142 (136-145) mmol/L Potassium 3.7 (3.5-5.1) mmol/L Chloride 107 (98-107) mmol/L Carbon Dioxide 27 (21-32) mmol/L BUN 8 (7-18) mg/dL Creatinine 0.9 (0.55-1.02) mg/dL Est Cr Clr Drug Dosing TNP Estimated GFR (MDRD) 60 Glucose 110 H (74-106) mg/dL Calcium 8.2 L (8.5-10.1) mg/dL Med Orders - Current: Current Medications Acetaminophen (Tylenol) 650 mg PO Q4H PRN PRN Reason: Pain (Mild 1-3)/fever Last Admin: 03/08/17 20:25 Dose: 650 mg Albuterol (Proventil Neb Soln) 2.5 mg NEB Q4HRRT PRN PRN Reason: shortness of breath,chest pain Aspirin (Aspirin) 81 mg PO DAILY [facility] Last Admin: 03/09/17 07:52 Dose: 81 mg Atorvastatin Calcium (Lipitor) 20 mg PO BEDTIME [facility] Last Admin: 03/08/17 20:20 Dose: 20 mg Azithromycin (Zithromax) 250 mg PO Q24H [facility] Last Admin: 03/08/17 20:21 Dose: 250 mg Calcium Carbonate/Glycine (Tums Extra Strength) 750 mg PO Q8H PRN PRN Reason: Dyspepsia Last Admin: 03/07/17 23:54 Dose: 750 mg Cefdinir (Omnicef) 300 mg PO BID [facility] Ceftriaxone Sodium (Rocephin) 1 gm IVPUSH ONETIME ONE Stop: 03/09/17 09:33 Sodium Chloride (Normal Saline) 1,000 mls @ 75 mls/hr IV ASDIRECTED [facility] Last Admin: 03/07/17 23:54 Dose: 75 mls/hr Ipratropium [place] (Atrovent) 0.5 mg NEB Q6HRRT [facility] Last Admin: 03/09/17 07:52 Dose: 0.5 mg Metoprolol Tartrate (Lopressor) 25 mg PO BID [facility] Last Admin: 03/09/17 07:53 Dose: 25 mg Mometasone Furoate/Formoterol Fumar (Dulera 100-5 Mcg) 0 puff IH BID [facility] Last Admin: 03/09/17 07:54 Dose: 2 puff Omeprazole (Omeprazole) 20 mg PO DAILY [facility] Last Admin: 03/09/17 07:53 Dose: 20 mg Oxybutynin Chloride (Oxybutynin) 5 mg PO DAILY [facility] Last Admin: 03/09/17 07:53 Dose: 5 mg Polyethylene Glycol (Miralax) 17 gm PO DAILY PRN PRN Reason: Constipation Sodium Chloride (Saline Flush) 10 ml FLUSH ASDIRECTED PRN PRN Reason: Keep Vein Open Last Admin: 03/07/17 23:02 Dose: 10 ml Discontinued Medications Azithromycin (Zithromax) 500 mg PO ONETIME ONE Stop: 03/07/17 22:47 Last Admin: 03/07/17 22:58 Dose: 500 mg Ceftriaxone Sodium (Rocephin) 1 gm IVPUSH Q24H STA Stop: 03/07/17 22:50 Last Admin: 03/07/17 22:58 Dose: 1 gm Enoxaparin Sodium (Lovenox) 30 mg SUBCUT DAILY [facility] Sodium Chloride (Normal Saline) 1,000 mls @ 999 mls/hr IV ONETIME ONE Stop: 03/07/17 21:42 Last Admin: 03/07/17 23:51 Dose: 999 mls/hr Oxybutynin Chloride (Oxybutynin Er) 5 mg PO DAILY [facility] Last Admin: 03/08/17 07:54 Dose: 5 mg - Exam General: Reports: alert, cooperative, no acute distress HEENT: Reports: Mucous membr. moist/pink Neck: Reports: supple, no thyromegaly. Denies: lymphadenopathy Lungs: Reports: Normal respiratory effort, Crackles (left lower lobe) Cardiovascular: Reports: Regular Rate, Regular Rhythm, No Murmurs Abdomen: Reports: bowel sounds present, soft, no tenderness, no distension Extremities: Reports: no edema, normal pulses Skin: Reports: warm, dry, intact *Q Meaningful Use (DIS) - VTE *Q VTE Criteria *Q: VTE Pharmacological Contraindications *Q: Tx/Proc Refused by Pt - Stroke *Q Stroke Criteria *Q: - AMI *Q AMI Criteria *Q:
[2017-03-09] MEDS: Sodium Chloride 0.9% 10 ML Syringe FLUSH PRN (09:50)
[2017-03-09 09:58] VITALS: BP 122/64
[2017-03-09] MEDS ORDERED: Cefdinir 300 MG Cap PO SCH (16:00)
== END 2017-03-09 15:40 | disposition home or self-care (01) | DRG 871 ==
LOC: VM.ED 20:18 → VM.MS 21:43
PROVIDERS: ADMIT Family Medicine; ATTEND Family Medicine
DX: A41.9 Sepsis, unspecified organism (principal); J18.1 Lobar pneumonia, unspecified organism; J44.0 Chronic obstructive pulmonary disease with (acute) lower respiratory infection; D64.9 Anemia, unspecified; I10 Essential (primary) hypertension; I25.10 Atherosclerotic heart disease of native coronary artery without angina pectoris; E78.5 Hyperlipidemia, unspecified; M19.90 Unspecified osteoarthritis, unspecified site; Z86.73 Personal history of transient ischemic attack (TIA), and cerebral infarction without residual deficits; E78.00 Pure hypercholesterolemia, unspecified; F17.210 Nicotine dependence, cigarettes, uncomplicated; R07.89 Other chest pain
CPT/HCPCS: 36415; 71020; 80048; 83605; 84484; 85025; 86140; 87040 ×2; 96360; 99285; J7030; 81001; 93005; 99284-GF; A9270-GY; J0696; J7050

== ENCOUNTER 2018-09-28 07:11 | Inpatient (IN) | payer MEDICARE, OTHER ==
[2018-09-28] MEDS ORDERED: cefTRIAXone 1 GM Vial IVPUSH ONE (07:45)
[2018-09-28 08:01] LABS: CHLORIDE,CL 103 mmol/L (98-107); SODIUM,NA 137 mmol/L (136-145)
[2018-09-28 08:08] LABS: ANION GAP 15.7 mmol/L (10-20)
--- NOTE | 2018-09-28 09:59 | EDM.PDOC ---
ED HPI GENERAL MEDICAL PROBLEM - General Chief Complaint: Abdominal Pain Stated Complaint: nausea, abdominal pain Time Seen by Provider: 09/28/18 07:18 Source of Information: Reports: Patient History Limitations: Reports: No Limitations - History of Present Illness Onset: Gradual Onset Date: 09/25/18 Duration: Constant Location: Reports: Abdomen Quality: Reports: Ache Associated Symptoms: Reports: Nausea/Vomiting Lower Abdomen Pain Score (Numeric/FACES): 9 - Related Data Allergies Allergy/AdvReac Type Severity Reaction Status Date / Time nitrofurantoin Allergy Unknown Cannot Verified 09/28/18 10:01 [From Macrobid] Remember nitrofurantoin Allergy Unknown Cannot Verified 09/28/18 10:01 macrocrystalline Remember [From Macrobid] Penicillins Allergy Unknown Itching Verified 09/28/18 10:01 Sulfa (Sulfonamide Allergy Cannot Verified 09/28/18 10:01 Antibiotics) Remember alendronate sodium AdvReac Intermediate Nausea Verified 09/28/18 10:01 [From Fosamax] Home Meds: Home Meds Albuterol Sulfate [Albuterol Sulfate HFA] 2 puff INH Q4H PRN 04/18/14 [History] Calcium Carbonate 1,500 mg PO DAILY 04/18/14 [History] Fluticasone/Salmeterol [Advair 100-50] 1 puff INH BID 04/18/14 [History] Metoprolol Tartrate [Lopressor] 25 mg PO BID 04/18/14 [History] Omeprazole Magnesium [Prilosec Otc] 20 mg PO BID 04/18/14 [History] Polyethylene Glycol 3350 [MiraLAX] 17 gm PO DAILY PRN 04/18/14 [History] Aspirin 81 mg PO DAILY 03/08/15 [History] Cholecalciferol (Vitamin D3) [Vitamin D3] 2,000 units PO DAILY 03/08/15 [History ] Multivitamin with Minerals [Multiple Vitamin] 1 tab PO DAILY 03/08/15 [History] atorvaSTATin [Lipitor] 20 mg PO BEDTIME #30 tablet 03/17/15 [Rx] Acetaminophen [Tylenol] 650 mg PO Q4H PRN 07/19/16 [History] Ondansetron [Zofran ODT] 4 mg PO DAILY PRN 07/19/16 [History] Umeclidinium [place] [Incruse Ellipta] 1 puff IH DAILY 07/19/16 [History] Cyanocobalamin (Vitamin B-12) [B-12 Dots] 500 mcg PO DAILY 03/07/17 [History] Oxybutynin 5 mg PO DAILY 03/08/17 [History] Denosumab [Prolia] 60 mg SUBCUT Q180D 08/18/18 [History] Magnesium Oxide 400 mg PO BID 08/18/18 [History] Ciprofloxacin HCl [Cipro] 500 mg PO BID 3 Days #6 tablet 09/26/18 [Rx] Past Medical History HEENT History: Reports: Cataract, Glaucoma, Macular Degeneration Cardiovascular History: Reports: CAD, High Cholesterol, Hypertension, [place], Syncope Other Cardiovascular History: vascular dementia. cerebral vascular disease. non STEMI. other specified cardiac dysrhythmias Respiratory History: Reports: COPD Other Respiratory History: emphysema, pneumonia. pulmonary nodules/lesions, multiple Gastrointestinal History: Reports: Colon Polyp, PUD Other Gastrointestinal History: sotelo's esophagus Genitourinary History: Reports: Urinary Incontinence Other Genitourinary History: mass right kidney VOLUNTEER MANAGER History: Reports: None Other VOLUNTEER MANAGER History: vaginal discharge Musculoskeletal History: Reports: Back Pain, Chronic, Osteoporosis Other Musculoskeletal History: skin lesion of face. chronic pain left knee,. leg pain. knee strain. failed total hip arthroplasty. pelvic contusion. pelvic pain, female. right hip pain. thigh pain. total hip arthroplasty Neurological History: Reports: CVA Other Neuro History: cerebral amyloid angiopathy. ICH-intracarebral hemorrhage. abnormal MRI of head. intermittant confusion Psychiatric History: Reports: None Other Psychiatric History: smoking. cognitive disfunction. malaise and fatigue. tobacco use disorder Endocrine/Metabolic History: Reports: Osteoporosis Other Endocrine/Metabolic History: underwt. hyperglycemia Hematologic History: Reports: Anemia Other Hematologic History: hypomagnesemiavit d deficiency. red blood cell antibody positive Immunologic History: Reports: None Oncologic (Cancer) History: Reports: Breast Dermatologic History: Reports: None - Infectious Disease History Infectious Disease History: Reports: None - Past Surgical History HEENT Surgical History: Reports: Cataract Surgery Other HEENT Surgeries/Procedures: pseudophakos. presbyopia Cardiovascular Surgical History: Reports: None Respiratory Surgical History: Reports: None GI Surgical History: Reports: Cholecystectomy, Colonoscopy Female Surgical History: Reports: D&C, Mastectomy, Oophorectomy, Tubal Ligation Endocrine Surgical History: Reports: None Neurological Surgical History: Reports: None Musculoskeletal Surgical History: Reports: Hip Replacement, Joint Replacement Oncologic Surgical History: Reports: Mastectomy Social & Family History - Family History Family Medical History: Noncontributory Cardiac: Reports: [place] Respiratory: Reports: COPD OBGYN: Reports: Musculoskeletal: Reports: Osteoarthritis Oncologic: Reports: Breast, Other (See Below) - Tobacco Use Smoking Status *Q: Current Every Day Smoker Years of Tobacco use: 55 Packs/Tins Daily: 0.2 - Caffeine Use Caffeine Use: Reports: Coffee - Living Situation & Occupation Living situation: Reports: , Assisted Living Occupation: Retired ED ROS GENERAL - Review of Systems Review Of Systems: See Below Constitutional: Reports: Fever HEENT: Reports: No Symptoms Respiratory: Reports: No Symptoms Cardiovascular: Reports: No Symptoms Endocrine: Reports: Fatigue GI/Abdominal: Reports: Abdominal Pain, Nausea : Reports: No Symptoms Musculoskeletal: Reports: No Symptoms Skin: Reports: No Symptoms Neurological: Reports: No Symptoms Psychiatric: Reports: No Symptoms Hematologic/Lymphatic: Reports: No Symptoms Immunologic: Reports: No Symptoms ED EXAM, GI/ABD - Physical Exam Exam: See Below Exam Limited By: No Limitations General Appearance: Alert, WD/WN, No Apparent Distress Eyes: Bilateral: EOMI Ears: Normal TMs Nose: Normal Inspection, Normal Mucosa, No Blood Throat/Mouth: Normal Inspection, Normal Lips, Normal Teeth, Normal Gums, Normal Oropharynx, Normal Voice, No Airway Compromise Head: Atraumatic, Normocephalic Neck: Normal Inspection, Supple, Non-Tender, Full Range of Motion Respiratory/Chest: No Respiratory Distress, Lungs Clear, Normal Breath Sounds, No Accessory Muscle Use, Chest Non-Tender Cardiovascular: Normal Peripheral Pulses, Regular Rate, Rhythm, No Edema, No Gallop, No JVD, No Murmur, No Rub GI/Abdominal Exam: Soft, Distended, Tender Back Exam: Normal Inspection, Full Range of Motion, NT Extremities: Normal Inspection, Normal Range of Motion, Non-Tender, Normal Capillary Refill, No Pedal Edema Neurological: Alert, Oriented, CN II-XII Intact, Normal Cognition, Normal Gait, Normal Reflexes, No Motor/Sensory Deficits Psychiatric: Normal Affect, Normal Mood Skin Exam: Warm, Dry, Intact, Normal Color, No Rash Lymphatic: No Adenopathy Course - Vital Signs Last Recorded V/S: Last Vital Signs Temp 36.9 C 09/28/18 07:13 Pulse 120 H 09/28/18 07:13 Resp 20 09/28/18 07:13 BP 153/82 H 09/28/18 07:13 Pulse Ox 94 L 09/28/18 07:13 - Orders/Labs/Meds Orders: Active Orders 24 hr Category Date Time Status Patient Status [ADT] Routine ADT 09/28/18 09:52 Ordered Bladder Scan [RC] ASDIRECTED Care 09/28/18 09:20 Ordered EKG 12 Lead [EKG Documentation Completion] [RC] URGENT Care 09/28/18 08:26 Active CULTURE BLOOD [BC] Stat Lab 09/28/18 07:46 Ordered CULTURE BLOOD [BC] Stat Lab 09/28/18 07:46 Ordered Blood Culture x2 Reflex Set [OM.PC] Stat Oth 09/28/18 07:46 Ordered Labs: Laboratory Tests 09/28/18 09/28/18 09/28/18 Range/Units 07:31 07:31 08:00 WBC 20.2 H* (4.0-10.0) x10^3/uL RBC 3.90 L (4.00-5.50) x10^6/uL Hgb 11.9 L (12.0-16.0) g/dL Hct 36.9 (33.0-47.0) % MCV 94.6 H (78.0-93.0) fL MCH 30.5 (26.0-32.0) pg MCHC 32.2 (32.0-36.0) g/dL RDW Coeff of Gamaliel 14.9 (10.0-15.0) % Plt Count 134 (130-400) x10^3/uL Add Manual Diff Yes Neutrophils % (Manual) 86 H (50-80) % Band Neutrophils % 3 (0-6) % Lymphocytes % (Manual) 2 L (25-50) % Monocytes % (Manual) 9 (2-11) % Vacuolated Monocytes Rare Platelet Estimate Adequate Polychromasia Rare Macrocytosis 1+ slight H Sodium 137 (136-145) mmol/L Potassium 4.7 (3.5-5.1) mmol/L Chloride 103 (98-107) mmol/L Carbon Dioxide 23 (21-32) mmol/L Anion Gap 15.7 (10-20) mmol/L BUN 13 (7-18) mg/dL Creatinine 1.0 (0.55-1.02) mg/dL Est Cr Clr Drug Dosing TNP Estimated GFR (MDRD) 53 Glucose 104 (74-106) mg/dL Lactic Acid 1.0 (0.4-2.0) mmol/L Calcium 8.3 L (8.5-10.1) mg/dL Corrected Calcium 9.18 (8.5-10.1) mg/dL Total Bilirubin 0.6 (0.2-1.0) mg/dL AST 19 (15-37) U/L ALT 16 (14-59) U/L Alkaline Phosphatase 81 (46-116) U/L Total Protein 7.5 (6.4-8.2) g/dL Albumin 2.9 L (3.4-5.0) g/dL Globulin 4.6 Albumin/Globulin Ratio 0.63 Urine Color (YELLOW) Urine Appearance (CLEAR) Urine pH (5.0-8.0) Ur Specific [place] Urine Protein (NEGATIVE) mg/dL Urine Glucose (UA) (NEGATIVE) mg/dL Urine Ketones (NEGATIVE) mg/dL Urine Occult Blood (NEGATIVE) Urine Nitrite (NEGATIVE) Urine Bilirubin (NEGATIVE) Urine Urobilinogen (0.2) EU/dL Ur Leukocyte Esterase (NEGATIVE) Urine RBC (NOT SEEN) /HPF Urine WBC (NOT SEEN) /HPF Ur Squamous Epith Cells (NEGATIVE) /HPF Urine Bacteria (NEGATIVE) /HPF Urine Mucus (NEGATIVE) /LPF 09/28/18 Range/Units 08:19 WBC (4.0-10.0) x10^3/uL RBC (4.00-5.50) x10^6/uL Hgb (12.0-16.0) g/dL Hct (33.0-47.0) % MCV (78.0-93.0) fL MCH (26.0-32.0) pg MCHC (32.0-36.0) g/dL RDW Coeff of Gamaliel (10.0-15.0) % Plt Count (130-400) x10^3/uL Add Manual Diff Neutrophils % (Manual) (50-80) % Band Neutrophils % (0-6) % Lymphocytes % (Manual) (25-50) % Monocytes % (Manual) (2-11) % Vacuolated Monocytes Platelet Estimate Polychromasia Macrocytosis Sodium (136-145) mmol/L Potassium (3.5-5.1) mmol/L Chloride (98-107) mmol/L Carbon Dioxide (21-32) mmol/L Anion Gap (10-20) mmol/L BUN (7-18) mg/dL Creatinine (0.55-1.02) mg/dL Est Cr Clr Drug Dosing Estimated GFR (MDRD) Glucose (74-106) mg/dL Lactic Acid (0.4-2.0) mmol/L Calcium (8.5-10.1) mg/dL Corrected Calcium (8.5-10.1) mg/dL Total Bilirubin (0.2-1.0) mg/dL AST (15-37) U/L ALT (14-59) U/L Alkaline Phosphatase (46-116) U/L Total Protein (6.4-8.2) g/dL Albumin (3.4-5.0) g/dL Globulin Albumin/Globulin Ratio Urine Color Yellow (YELLOW) Urine Appearance Slightly cloudy H (CLEAR) Urine pH 6.0 (5.0-8.0) Ur Specific [place] >=1.030 Urine Protein 100 H (NEGATIVE) mg/dL Urine Glucose (UA) Negative (NEGATIVE) mg/dL Urine Ketones 80 H (NEGATIVE) mg/dL Urine Occult Blood Small H (NEGATIVE) Urine Nitrite Negative (NEGATIVE) Urine Bilirubin Small H (NEGATIVE) Urine Urobilinogen 0.2 (0.2) EU/dL Ur Leukocyte Esterase Trace H (NEGATIVE) Urine RBC 10-20 H (NOT SEEN) /HPF Urine WBC 5-10 H (NOT SEEN) /HPF Ur Squamous Epith Cells Few H (NEGATIVE) /HPF Urine Bacteria Few H (NEGATIVE) /HPF Urine Mucus Few H (NEGATIVE) /LPF Meds: Medications Discontinued Medications Generic Name Dose Route Start Last Admin Trade Name Freq PRN Reason Stop Dose Admin Ceftriaxone Sodium 1 gm 09/28/18 07:45 09/28/18 07:55 Rocephin IVPUSH 09/28/18 07:46 1 gm STAT ONE Administration Departure - Departure Time of Disposition: 09:28 Disposition: Admitted As Inpatient 64 Condition: Fair Clinical Impression: Urinary tract infection, Leukocytosis - Discharge Information *PRESCRIPTION DRUG MONITORING PROGRAM REVIEWED*: Not Applicable *COPY OF PRESCRIPTION DRUG MONITORING REPORT IN PATIENT ADDY: Not Applicable Referrals: Aniya Laws MD [Primary Care Provider] - Forms: ED Department Discharge ED Communication - ED Communication Date/Time Date: 09/28/18 Time Called: 10:00 - Discussed Case With (1) Discussed Case With (1): Admitting Provider (Discussed with Dr. Thibodeaux. While on the phone, culture and sensitivity for urine was resulted. E. Coli that is Cipro resistant. Failure of outpatient therapy resulting in admission.) - My Orders Last 24 Hours: My Active Orders 09/28/18 07:46 CULTURE BLOOD [BC] Stat CULTURE BLOOD [BC] Stat Blood Culture x2 Reflex Set [OM.PC] Stat 09/28/18 08:26 EKG 12 Lead [EKG Documentation Completion] [RC] URGENT 09/28/18 09:20 Bladder Scan [RC] ASDIRECTED 09/28/18 09:52 Patient Status [ADT] Routine - Assessment/Plan Last 24 Hours: My Active Orders 09/28/18 07:46 CULTURE BLOOD [BC] Stat CULTURE BLOOD [BC] Stat Blood Culture x2 Reflex Set [OM.PC] Stat 09/28/18 08:26 EKG 12 Lead [EKG Documentation Completion] [RC] URGENT 09/28/18 09:20 Bladder Scan [RC] ASDIRECTED 09/28/18 09:52 Patient Status [ADT] Routine
[2018-09-28] MEDS ORDERED: Ondansetron 4 MG Tab.DIS PO PRN (10:48)
[2018-09-28] MEDS ORDERED: Polyethylene Glycol 3350 Powder 17 GM Packet PO PRN (10:48)
[2018-09-28] MEDS ORDERED: Albuterol 0.083% 2.5 MG/3 ML Neb Soln INH PRN (11:00)
[2018-09-28] MEDS: Aspirin 81 MG Tab.Chew PO SCH (11:34)
[2018-09-28] MEDS ORDERED: Iopamidol 612 MG/ML 100 ML Bottle IVPUSH ONE (11:34)
[2018-09-28] MEDS: Metoprolol Tartrate 25 MG Tab PO SCH ×2 (11:35→20:18)
[2018-09-28] MEDS: Magnesium Oxide 400 MG Tab PO SCH ×2 (11:36→20:18)
[2018-09-28] MEDS: Fluticasone-Salmeterol 55-14 MCG Powder Inhalent INH SCH (11:36)
[2018-09-28] MEDS: Pantoprazole 40 MG Vial IVPUSH SCH ×2 (11:37→20:11)
[2018-09-28] MEDS: Sodium Chloride 0.9% 1,000 ML IV SCH (11:37)
[2018-09-28] MEDS: Ipratropium 0.02% 0.5 MG/2.5 ML Neb Soln INH SCH ×2 (13:01→18:06)
[2018-09-28] MEDS: Ondansetron 4 MG/2 ML SDV IV PRN ×2 (15:09→20:11)
[2018-09-28] MEDS ORDERED: Enoxaparin 30 MG/0.3 ML Syringe SUBCUT SCH (18:00)
--- NOTE | 2018-09-28 19:16 | CT ---
[id number] CT/CT Abdomen Pelvis W IV EXAM: CT Abdomen Pelvis W IV CLINICAL DATA: ABDOMINAL PAIN. COMPARISON STUDY: September 26, 2018, January 20, 2017, and March 2018. FINDINGS: Persistent dilation of the main pancreatic duct, measuring up to 10 mm in the pancreatic head. This comes 2 abrupt caliber change in the pancreatic head. However, no radiographically evident mass. There is extensive parenchymal calcification secondary to sequela of chronic pancreatitis. However, this is similar compared to prior examination from 2016. Of note, gallbladder has been resected with mild prominence of the intrahepatic bile ducts. This is within normal limits for postcholecystectomy change. No evidence of common duct obstruction. Hypodense mass appearing to arise from the right adrenal gland. This is similar to prior examination in 2013, most consistent with a benign adenoma. Numerous fluid-filled loops of small bowel throughout the abdomen and pelvis, as well as the stomach. Findings are nonspecific and can be seen with mild gastroenteritis. No evidence of colitis or bowel obstruction. IMPRESSION: Dilated main pancreatic duct measuring up to 10 mm in diameter, with abrupt transition to decompressed duct and the pancreas head. No radiographically evident mass identified. However, ERCP recommended for further evaluation, as this was not seen in January 2017. Possible changes of mild gastroenteritis, described above. Renato Oliva MD 09/28/18 [id number] Thank you for allowing us to participate in the care of your patient.
[2018-09-28] MEDS ORDERED: atorvaSTATin 10 MG Tab PO SCH (20:00)
[2018-09-28] MEDS: Acetaminophen 325 MG Tab PO PRN (20:16)
--- NOTE | 2018-09-28 20:48 | HP ---
CHIEF COMPLAINT: Today is abdominal pain, nausea, and vomiting. HISTORY OF PRESENT ILLNESS: This is an 83-year-old female who was in the ER with similar complaints on 09/26/2018. Had a CT at that point and was found to have a UA, treated with Cipro. Sensitivities returned back today for her E. coli UTI showing it to be resistant to Cipro. She did have an elevated white count on that visit and some question of hydronephrosis. She also had chronic pancreatitis findings and really she admits she has been having the same abdominal pain right in the middle of her stomach for over a month. She threw up at least 4 times, but only once today. She has been on Prilosec twice daily and was treated for H. pylori duodenitis with a regimen earlier this fall. She has not had any diarrhea or blood in her stools. She has not had any cough or trouble breathing. She is quite thin and overall her weight is down about 8 pounds since 6 months ago. She has not had any fever or chills. No new back pain. She does report some burning with urination. She does not feel that she has been overly confused, but she normally lives at assisted living. The patient states she has not been able to eat much due to the stomach problems. She came into ER today. White count was 20,000. Her lactic acid was normal. Lipase was normal the other day. It is still normal today. UA still positive for 5-10 wbc's and 10-20 rbc's. ALLERGIES: Include penicillin, Fosamax, Macrobid, and sulfa. MEDICATIONS: Her medication list includes the Lipitor 20 mg at bedtime, Ditropan 5 mg daily, Prilosec 20 mg twice daily, Incruse inhaler, Advair inhaler, Lopressor 25 b.i.d., Prolia last given on 08/12/2018, mag oxide 400 twice a day, Zofran as needed for nausea. She has had that longstanding on her list. Tylenol as needed, Proventil inhaler, MiraLAX as needed for constipation, aspirin 81 mg daily, vitamin B12 daily, calcium daily, multivitamin daily, and vitamin D 1000 units 2 pills daily. PAST MEDICAL HISTORY: Does include chronic anemia with blood loss in the past due to some gastritis, Schneider's esophagus without dysplasia, cerebral amyloid angiopathy and a cardioembolic stroke, previous [id number] [place], chronic low back pain with sciatica, some cognitive dysfunction, coronary artery disease, essential hypertension, the duodenitis on 08/21/2018 with H. pylori on biopsy, history of hyperglycemia, hyperlipidemia, hypomagnesemia, previous intracranial hemorrhage, previous breast cancer, previous kidney mass, mixed incontinence, on Ditropan a couple of years, emphysema, previous peptic ulcer disease, previous pneumonia, previous lung nodules, osteoporosis, smoking 3 per day, refuses to quit, underweight, vascular dementia, vitamin D deficiency. PAST SURGICAL HISTORY: Surgically, the patient has had tubal ligation, hip revision surgery, oophorectomy, mastectomy, joint replacement, left hip, cholecystectomy, cataract surgery, breast surgery. SOCIAL HISTORY: The patient is retired and she is . She has 3 children. She denies any alcohol use currently. She previously worked at the [employer] FAMILY HISTORY: Otherwise, her parents are both . Her father had stomach cancer. She has a sister who had pancreatic cancer and 1 who had coronary artery disease. Another sister with lung cancer. Multiple brothers have had heart attacks. REVIEW OF SYSTEMS: General: She has had the weight changes, but no fever, no chills. HEENT: No sore throat. No trouble swallowing. Cardiac: No chest pain. No palpitations. Respiratory: As stated in HPI. She is not coughing. GI: Otherwise, as stated in HPI. : She has had chronic frequency. She is not having any trouble voiding. Musculoskeletal: No new aches or pains. Otherwise, all systems reviewed and found to be negative unless otherwise stated. LABORATORY WORK: Today, white count 20.2, hemoglobin 11.9, platelets 134. Sodium 137, potassium 4.7, chloride 103, bicarb 23, BUN 13, creatinine 1, glucose 104, lactic acid normal at 1, calcium 8.3, magnesium 2.3, bili 0.6, AST 19, ALT 16, albumin 2.9, lipase 69. UA again slightly positive as stated in HPI otherwise. ASSESSMENT: 1. Urinary tract infection with Escherichia coli, failing outpatient antibiotics due to allergies and resistances. She will be placed on IV Rocephin. We will repeat a lactic acid. She is certainly having leukocytosis, tachycardia, and a mild fever of up to 100.5 to reach criteria for sepsis. 2. Sepsis secondary to urinary tract infection. We will get some IV antibiotics and fluids going. Actually, she received the 1st dose of antibiotics in the ER. 3. Abdominal pain. This has been a chronic problem, but certainly with the concern for hydronephrosis, we will repeat the CT today. I did get the CT prior to this dictation and it did show more concerning was a dilated pancreatic duct up to 10 mm. This needs further workup as an outpatient for ERCP or MRCP. Stones may interfere with the MRCP. She had no significant hydronephrosis felt by the radiologist, maybe just mild on the right. No pyelonephritis, but possibly some gastroenteritis. 4. Otherwise, urinary incontinence. I am going to go ahead and hold her oxybutynin as this actually can lead to some bladder infections. We will see how she is voiding. We can consider some bladder scanning. 5. Underlying chronic obstructive pulmonary disease, seems stable without exacerbation. 6. History of peptic ulcer disease and Helicobacter pylori. She is currently on PPIs. We will continue with the same. 7. History of heart disease. She is not having any chest pain. 8. Osteoporosis. She is on chronic therapies for this. 9. Essential hypertension. Blood pressure is mildly elevated. Could be due to pain. We will continue her home medications, which include metoprolol. PLAN: At this point, the patient is admitted for acute cares. She will be on IV Rocephin and IV fluids for gentle hydration at just 50 mL/hr given her small size. We will also have her on Lovenox 30 for DVT prophylaxis. I will repeat her lab work in the morning. I will actually switch her PPI over to Protonix IV b.i.d. to see if this helps her symptoms. We will have Zofran available IV. Certainly, did not see anything on the CT that would suggest a bowel obstruction. The patient's blood has been sent for culture. I have not reordered the urine culture as we have 1 already. She will be evaluated by PT for her tachycardia. We will monitor her with telemetry. She elects to be a code level 1, but if she is not able to be resuscitated, she does not want it to go on for too long and to be left on machines. Greater than 30 minutes spent on this admission process. SURINDER: 09/28/2018 17:56:22 MODL: 09/28/2018 20:38:26 /[id number]
[2018-09-29] MEDS: Fluticasone-Salmeterol 55-14 MCG Powder Inhalent INH SCH ×2 (00:52→10:49)
[2018-09-29] MEDS: Ipratropium 0.02% 0.5 MG/2.5 ML Neb Soln INH SCH ×3 (02:48→07:39)
[2018-09-29 07:28] LABS: ANION GAP 11.6 mmol/L (10-20)
[2018-09-29] MEDS ORDERED: cefTRIAXone 1 GM Vial IVPUSH SCH (08:00)
[2018-09-29] MEDS: Aspirin 81 MG Tab.Chew PO SCH (08:01)
[2018-09-29] MEDS: Metoprolol Tartrate 25 MG Tab PO SCH (08:02)
[2018-09-29] MEDS: Magnesium Oxide 400 MG Tab PO SCH (08:02)
[2018-09-29] MEDS: Pantoprazole 40 MG Vial IVPUSH SCH (08:04)
[2018-09-29] MEDS: Sodium Chloride 0.9% 1,000 ML IV SCH (08:18)
[2018-09-29 09:59] VITALS: BP 139/61
[2018-09-29] MEDS ORDERED: Potassium Phosphate,Mb-Db/Sodium Phosphate,Mb-Db Packet PO SCH (10:00)
--- NOTE | 2018-09-29 10:44 | PN ---
Progress Note for [facility] Date: 09/29/2018 Room #: VM.205 SUBJECTIVE: The patient is an 83-year-old female who was admitted yesterday for severe epigastric abdominal pain with vomiting. The patient was noted to have UTI that culture had grown organism resistant to Cipro, which she had been placed on 09/26/2018, so she was placed on Rocephin. CT scan of abdomen was repeated which showed concerning of pancreatic duct abnormality with narrowing noted with 10 mm in diameter noted, post gallbladder removal years ago, 10 mm in size. No masses noted. To note, the patient has been found to have H. pylori gastritis on 08/21/2018 by EGD done at [facility]. She was treated with triple therapy and was on Prilosec 20 mg b.i.d. Yesterday, her lab was checked for serial lactic acid that was normal and her white blood cell count did improve today to 14.1, hemoglobin did drop to 10.4 with 87 segs. Her liver function tests actually are normal today as well as amylase and lipase. The patient has not had a bowel movement for 2 days, and she also comments that she is not passing gas per rectum. She has not had any parental pain medication. OBJECTIVE: Vital Signs: Her temperature is 36.8, pulse 97, blood pressure is 130/60, her sats are 97% on room air, respiratory rate 16. General: The patient appears mildly ill. Skin: Pale, warm, and dry. Mouth: Pharynx is normal. Heart: Regular rate and rhythm. Lungs: Diminished breath sounds on bases. Abdomen: Scant bowel sounds present. She is severely tender in her epigastric area with guarding. There is rebound tenderness to her epigastric area. LABORATORY DATA: Her lab work today shows that her white blood cell count 14.1, hemoglobin 10.4, platelets 149, 87 segs, lymphocytes 4.3, monos 7.5. Sodium 138, potassium 3.6, creatinine 0.9, GFR 60, glucose 211. BNP is 11. Calcium is 7.7, phosphorus low at 1.4, magnesium 2.2. CRP is 29.4, albumin 2.3, amylase 13, lipase 38. IMPRESSION: 1. Epigastric pain, severe, unclear etiology. 2. Known Escherichia coli urosepsis. 3. Pancreatic duct abnormality. 4. Recent Helicobacter pylori gastritis. 5. Hypophosphatemia. 6. Chronic obstructive pulmonary disease. 7. Coronary artery disease. 8. Osteoporosis. 9. Hypertension. PLAN: [facility] She did agree to accept the patient. We will do abdominal flat and upright x-rays on the patient. We will continue her on IV fluids as well as clear liquids for right now. We will offer her parental pain control as well. The patient is code level 1 and does desire to be resuscitated. I did try calling the patient's son twice, but was not able to get a hold of him. GM09/29/2018 09:45:09 MODL: 09/29/2018 10:35:26 /[id number]
[2018-09-29] MEDS: Acetaminophen 325 MG Tab PO PRN (11:08)
--- NOTE | 2018-09-29 11:10 | CR ---
[id number] RAD/RAD Abd Flat and Upright 2V EXAM: RAD Abd Flat and Upright 2V INDICATION: EPIGASTRIC PAIN. COMPARISON: CT abdomen pelvis September 28, 2018. DISCUSSION: Again identified are numerous gas and fluid-filled loops of small bowel throughout the abdomen and pelvis. The stomach also appears somewhat dilated. There is gas and stool within the colon. Linear lucency underlying the left hemidiaphragm likely represents overlapping tissue as there was no free air on recent CT. If clinical concern, lateral decubitus image could be considered. Postsurgical changes of the left hip. Dextroscoliotic curvature of the lower lumbar spine. Multilevel degenerative changes of the thoracolumbar spine. Clips in the right upper quadrant consistent with cholecystectomy. Calcifications in the region of the pancreas correspond to findings seen on recent CT and are likely sequela of chronic pancreatitis. IMPRESSION: Multiple fluid and gas-filled loops of small bowel. There is gas and stool within the colon. Additionally, this was seen on recent CT. These findings are most consistent with ileus. Piero Goddard DO 09/29/18 1108 Thank you for allowing us to participate in the care of your patient.
--- NOTE | 2018-09-30 06:12 | DISCH ---
PRIMARY DIAGNOSES: 1. Severe epigastric pain. 2. Known gastritis with recent Helicobacter pylori infection from 08/21/2018. 3. Escherichia coli urosepsis. 4. Hypophosphatemia. 5. Pancreatic duct abnormality with abrupt narrowing with normal pancreatic and liver function enzymes. 6. Anemia possibly due to blood loss. 7. Chronic obstructive pulmonary disease. 8. Hypertension. 9. Osteoporosis. 10.Remote history of breast cancer. 11.Remote history of cerebrovascular accident. 12.Mild cognitive dysfunction. SUMMARY OF HISTORY AND PHYSICAL: The patient is an 83-year-old female who presented to the emergency room on 09/28/2018 with severe epigastric pain. She was nauseated and also severe ache. When seen in the emergency department, she was noted to have a soft abdomen that was distended. It was tender. No mention of guarding or rebound. She had at that time a pulse of 120, temperature 36.9, blood pressure is 153/82, sats were 94% on room air. The patient's white blood cell count was 20.2. Lactic acid was normal. CRP was elevated. Liver function tests were normal. The patient's urinalysis had 10-20 red blood cells with 5-10 white blood cells. She will be given 1 g of Rocephin. She had been admitted to acute care. While on acute care, the patient underwent a repeat abdominal CT done through [facility] and it showed a dilated main pancreatic duct up to 10 mm in diameter with abrupt transition to decompress duct and the pancreatic head. No evidence of mass seen. Possible ERCP as this was not noted on abdominal CT in 01/2017 and possible mild gastroenteritis. The patient had been monitored on telemetry. Received IV hydration. To note, her intake was somewhat limited today as she was not feeling well. She has not had a bowel movement for 3 days. Her urine culture from 09/26/2018 had shown E. coli that was resistant to Cipro, but sensitive to Rocephin. LABORATORY DATA: On 09/29/2018 showed a white blood cell count improved to 14.1, hemoglobin dropped to 10.4 with 149 platelets, 87 segs, 4 lymphs, 7 eosinophils. Sodium is 138, potassium 3.6, creatinine 0.9, BUN was 11. Anion gap went from 15.7 down to 11.6. Glucose was elevated at 212, but she is not diabetic. Phosphorus was noted to be low at 0.4, normal is 2.6 to 4.7. CRP was 29.4, which had stayed about the same as it was 29.9 two days prior. Albumin was 2.3. Amylase 13, lipase 38, AST 15, ALT 14, alk phos 72. MEDICATIONS AT THE TIME OF TRANSFER: Will be Tylenol 650 q.4 hours p.r.n., albuterol 2 puffs q.4 hours p.r.n., aspirin 81 mg 1 pill daily, Lipitor 20 mg 1 pill at bedtime, Rocephin 1 g IV q.24 hours, Lovenox 30 mg subcu daily, Atrovent 2 puffs q.i.d., magnesium oxide 400 mg 1 pill twice a day, metoprolol tartrate 25 mg 1 pill twice a day, Zofran 4 mg IV q.4 hours p.r.n. nausea, Zofran 4 mg p.o. daily p.r.n. nausea, Protonix IV 40 mg b.i.d., MiraLAX 17 g daily p.r.n. She was substituted for Dulera 55/14, 1 puff b.i.d. (she is normally on Advair, however, she is on IV at 50 mL/hr. Because the concern was worsening epigastric pain and no ability to do MRI imaging here until 10/05/2018, it was felt more advantageous to have her at [place]. Also, she may need the ability of surgical consult. We will get abdominal flat and upright x-rays on the patient. We will hold her aspirin at the time of discharge. The patient was code level 1 status at the time of transfer. A pending abdominal flat and upright x-ray was noted on 09/29/2018. To note, the patient does ambulate with a walker. She is pleasant to visit with. Attempts at informing her son about the patient's transfer were unsuccessful as he did not answer his cellphone. GM09/29/2018 09:52:37 MODL: 09/30/2018 06:06:29 /[id number]
== END 2018-09-29 11:35 | disposition short-term general hospital (02) | DRG 872 ==
LOC: VM.ED 07:11 → VM.MS 09:52
PROVIDERS: ADMIT Internal Medicine; ATTEND Family Medicine
DX: A41.9 Sepsis, unspecified organism (principal); D72.829 Elevated white blood cell count, unspecified; N39.0 Urinary tract infection, site not specified; H35.30 Unspecified macular degeneration; E85.4 Organ-limited amyloidosis; K86.89 Other specified diseases of pancreas; E78.00 Pure hypercholesterolemia, unspecified; B96.20 Unspecified Escherichia coli [E. coli] as the cause of diseases classified elsewhere; J43.9 Emphysema, unspecified; K52.9 Noninfective gastroenteritis and colitis, unspecified; I10 Essential (primary) hypertension; R32 Unspecified urinary incontinence; J44.9 Chronic obstructive pulmonary disease, unspecified; M54.9 Dorsalgia, unspecified; G31.84 Mild cognitive impairment of uncertain or unknown etiology; N28.9 Disorder of kidney and ureter, unspecified; I25.10 Atherosclerotic heart disease of native coronary artery without angina pectoris; D50.0 Iron deficiency anemia secondary to blood loss (chronic); K29.60 Other gastritis without bleeding; B96.81 Helicobacter pylori [H. pylori] as the cause of diseases classified elsewhere; E83.39 Other disorders of phosphorus metabolism; K27.9 Peptic ulcer, site unspecified, unspecified as acute or chronic, without hemorrhage or perforation; M81.0 Age-related osteoporosis without current pathological fracture; H40.9 Unspecified glaucoma; E55.9 Vitamin D deficiency, unspecified; F17.210 Nicotine dependence, cigarettes, uncomplicated; K22.70 Barrett's esophagus without dysplasia; I68.0 Cerebral amyloid angiopathy; G89.29 Other chronic pain; M54.40 Lumbago with sciatica, unspecified side; E78.5 Hyperlipidemia, unspecified; N39.46 Mixed incontinence; F01.50 Vascular dementia, unspecified severity, without behavioral disturbance, psychotic disturbance, mood disturbance, and anxiety; Z79.899 Other long term (current) drug therapy; Z79.82 Long term (current) use of aspirin; Z79.51 Long term (current) use of inhaled steroids; Z90.49 Acquired absence of other specified parts of digestive tract; Z88.2 Allergy status to sulfonamides; Z88.0 Allergy status to penicillin; Z88.8 Allergy status to other drugs, medicaments and biological substances; Z85.3 Personal history of malignant neoplasm of breast; Z86.73 Personal history of transient ischemic attack (TIA), and cerebral infarction without residual deficits; I25.2 Old myocardial infarction; Z87.01 Personal history of pneumonia (recurrent)
CPT/HCPCS: 36415; 80053; 81001; 83605; 83690; 83735; 85025; 87040 ×2; 93005; 96374; 99285; J0696; 74019; 74177; 82150; 84100; 86140; 94640; 97162-GP; 99284-GF; A9270-GY; C9113; J1650; J2405; J7030; Q9967

== ENCOUNTER 2018-12-09 22:19 | Emergency (ER) | payer MEDICARE, OTHER ==
[2018-12-09] MEDS ORDERED: Sodium Chloride 0.9% 1,000 ML IV ONE (22:27)
[2018-12-09] MEDS ORDERED: Ondansetron 4 MG/2 ML SDV IVPUSH ONE (22:27)
[2018-12-09] MEDS ORDERED: Sodium Chloride 0.9% 10 ML Syringe FLUSH PRN (22:27)
--- NOTE | 2018-12-09 22:28 | EDM.PDOC ---
ED HPI GENERAL MEDICAL PROBLEM - General Chief Complaint: General Stated Complaint: Dont feel well; Abd Pain; UTI symptoms Time Seen by Provider: 12/09/18 22:26 Source of Information: Reports: Patient, RN, RN Notes Reviewed History Limitations: Reports: No Limitations - History of Present Illness INITIAL COMMENTS - FREE TEXT/NARRATIVE: Patient presents the emergency room for evaluation of abdominal pain, nausea. The patient states that her symptoms started around 4 PM this afternoon. The patient has not had any vomiting or diarrhea. The patient has had a low-grade temp. She did take Tylenol around 8:30 PM prior to presentation. The patient states she feels dehydrated. The patient has not had consistent bowel movements. Her appetite has been poor. Patient does have a history of pancreatitis in the past. Otherwise no other concerns. Abdominal Pain Score (Numeric/FACES): 5 - Related Data Allergies Allergy/AdvReac Type Severity Reaction Status Date / Time nitrofurantoin Allergy Unknown Cannot Verified 12/09/18 22:45 [From Macrobid] Remember nitrofurantoin Allergy Unknown Cannot Verified 12/09/18 22:45 macrocrystalline Remember [From Macrobid] Penicillins Allergy Unknown Itching Verified 12/09/18 22:45 Sulfa (Sulfonamide Allergy Cannot Verified 12/09/18 22:45 Antibiotics) Remember alendronate sodium AdvReac Intermediate Nausea Verified 12/09/18 22:45 [From Fosamax] Home Meds: Home Meds Albuterol Sulfate [Albuterol Sulfate HFA] 2 puff INH Q4H PRN 04/18/14 [History] Calcium Carbonate 1,500 mg PO DAILY 04/18/14 [History] Fluticasone/Salmeterol [Advair 100-50] 1 puff INH BID 04/18/14 [History] Metoprolol Tartrate [Lopressor] 25 mg PO BID 04/18/14 [History] Polyethylene Glycol 3350 [MiraLAX] 17 gm PO DAILY PRN 04/18/14 [History] Cholecalciferol (Vitamin D3) [Vitamin D3] 2,000 units PO DAILY 03/08/15 [History ] Multivitamin with Minerals [Multiple Vitamin] 1 tab PO DAILY 03/08/15 [History] atorvaSTATin [Lipitor] 20 mg PO BEDTIME #30 tablet 03/17/15 [Rx] Acetaminophen [Tylenol] 650 mg PO Q4H PRN 07/19/16 [History] Ondansetron [Zofran ODT] 4 mg PO Q4H PRN 07/19/16 [History] Umeclidinium [place] [Incruse Ellipta] 1 puff PO DAILY 07/19/16 [History] Cyanocobalamin (Vitamin B-12) [B-12 Dots] 500 mcg PO DAILY 03/07/17 [History] Magnesium Oxide 400 mg PO DAILY 08/18/18 [History] Amoxicillin 2,000 mg PO ASDIRECTED 12/09/18 [History] Aspirin 81 mg PO DAILY 12/09/18 [History] Calcium Carbonate [Tums Extra Strength] 750 mg PO Q8H PRN 12/09/18 [History] Cyclobenzaprine [Flexeril] 5 mg PO Q8H PRN 12/09/18 [History] Omeprazole Magnesium [Prilosec Otc] 20 mg PO BID 12/09/18 [History] Simethicone 80 mg PO BID 12/09/18 [History] tiZANidine HCl [Tizanidine HCl] 2 mg PO TID PRN 12/09/18 [History] Past Medical History HEENT History: Reports: Cataract, Glaucoma, Macular Degeneration Cardiovascular History: Reports: CAD, High Cholesterol, Hypertension, VT, Syncope Other Cardiovascular History: vascular dementia. cerebral vascular disease. non STEMI. other specified cardiac dysrhythmias Respiratory History: Reports: COPD Other Respiratory History: emphysema, pneumonia. pulmonary nodules/lesions, multiple Gastrointestinal History: Reports: Colon Polyp, PUD Other Gastrointestinal History: sotelo's esophagus Genitourinary History: Reports: Urinary Incontinence Other Genitourinary History: mass right kidney RENEWABLE ENERGY TECHNICIAN History: Reports: None Other RENEWABLE ENERGY TECHNICIAN History: vaginal discharge Musculoskeletal History: Reports: Back Pain, Chronic, Osteoporosis Other Musculoskeletal History: skin lesion of face. chronic pain left knee,. leg pain. knee strain. failed total hip arthroplasty. pelvic contusion. pelvic pain, female. right hip pain. thigh pain. total hip arthroplasty Neurological History: Reports: CVA Other Neuro History: cerebral amyloid angiopathy. ICH-intracarebral hemorrhage. abnormal MRI of head. intermittant confusion Psychiatric History: Reports: None Other Psychiatric History: smoking. cognitive disfunction. malaise and fatigue. tobacco use disorder Endocrine/Metabolic History: Reports: Osteoporosis Other Endocrine/Metabolic History: underwt. hyperglycemia Hematologic History: Reports: Anemia Other Hematologic History: hypomagnesemiavit d deficiency. red blood cell antibody positive Immunologic History: Reports: None Oncologic (Cancer) History: Reports: Breast Dermatologic History: Reports: None - Infectious Disease History Infectious Disease History: Reports: None - Past Surgical History HEENT Surgical History: Reports: Cataract Surgery Other HEENT Surgeries/Procedures: pseudophakos. presbyopia Cardiovascular Surgical History: Reports: None Respiratory Surgical History: Reports: None GI Surgical History: Reports: Cholecystectomy, Colonoscopy Female Surgical History: Reports: D&C, Mastectomy, Oophorectomy, Tubal Ligation Endocrine Surgical History: Reports: None Neurological Surgical History: Reports: None Musculoskeletal Surgical History: Reports: Hip Replacement, Joint Replacement Oncologic Surgical History: Reports: Mastectomy Social & Family History - Family History Family Medical History: Noncontributory Cardiac: Reports: VT Respiratory: Reports: COPD OBGYN: Reports: Musculoskeletal: Reports: Osteoarthritis Oncologic: Reports: Breast, Other (See Below) - Caffeine Use Caffeine Use: Reports: Coffee - Living Situation & Occupation Living situation: Reports: , Assisted Living Occupation: Retired ED ROS GENERAL - Review of Systems Review Of Systems: ROS reveals no pertinent complaints other than HPI. ED EXAM, GENERAL - Physical Exam Exam: See Below Exam Limited By: No Limitations General Appearance: Alert, No Apparent Distress Respiratory/Chest: No Respiratory Distress, Lungs Clear, Normal Breath Sounds Cardiovascular: Normal Peripheral Pulses, Regular Rate, Rhythm Peripheral Pulses: 2+: Radial (L), Radial (R) GI/Abdominal: Soft, Tender (generalized), Abnormal Bowel Sounds (Hypoactive) Neurological: Alert, Oriented Skin Exam: Warm, Dry, Intact, Normal Color Course - Vital Signs Last Recorded V/S: Last Vital Signs Temp 37.5 C 12/09/18 22:26 Pulse 118 H 12/09/18 22:26 Resp 18 12/09/18 22:26 BP 146/69 H 12/09/18 22:26 Pulse Ox 92 L 12/09/18 22:26 - Orders/Labs/Meds Orders: Active Orders 24 hr Category Date Time Status Abdomen 2V AP Flat Upright [CR] Stat Exams 12/09/18 22:27 Taken CULTURE URINE [RM] Stat Lab 12/09/18 23:34 Received Sodium Chloride 0.9% [Saline Flush] Med 12/09/18 22:27 Active 10 ml FLUSH ASDIRECTED PRN Peripheral IV Insertion Adult [OM.PC] Routine Oth 12/09/18 22:27 Ordered Medication Orders Sodium Chloride (Saline Flush) 10 ml FLUSH ASDIRECTED PRN PRN Reason: Keep Vein Open Labs: Laboratory Tests 12/09/18 12/09/18 12/09/18 Range/Units 22:37 22:37 22:37 WBC 11.7 H (4.0-10.0) x10^3/uL RBC 3.29 L (4.00-5.50) x10^6/uL Hgb 9.8 L (12.0-16.0) g/dL Hct 30.9 L (33.0-47.0) % MCV 93.9 H (78.0-93.0) fL MCH 29.8 (26.0-32.0) pg MCHC 31.7 L (32.0-36.0) g/dL RDW Coeff of Gamaliel 14.6 (10.0-15.0) % Plt Count 172 (130-400) x10^3/uL Neut % (Auto) 83.1 H (50.0-80.0) % Lymph % (Auto) 8.9 L (25.0-50.0) % [place]rie % (Auto) 7.0 (2.0-11.0) % Eos % (Auto) 0.8 (0.0-4.0) % Baso % (Auto) 0.2 (0.2-1.2) % Sodium 145 (136-145) mmol/L Potassium 4.0 (3.5-5.1) mmol/L Chloride 108 H (98-107) mmol/L Carbon Dioxide 24 (21-32) mmol/L Anion Gap 17.0 (10-20) mmol/L BUN 22 H (7-18) mg/dL Creatinine 1.3 H (0.55-1.02) mg/dL Est Cr Clr Drug Dosing TNP Estimated GFR (MDRD) 39 Glucose 182 H (74-106) mg/dL Calcium 9.3 D (8.5-10.1) mg/dL Amylase 24 L (25-115) U/L Lipase 52 L (73-393) U/L Urine Color (YELLOW) Urine Appearance (CLEAR) Urine pH (5.0-8.0) Ur Specific [place] Urine Protein (NEGATIVE) mg/dL Urine Glucose (UA) (NEGATIVE) mg/dL Urine Ketones (NEGATIVE) mg/dL Urine Occult Blood (NEGATIVE) Urine Nitrite (NEGATIVE) Urine Bilirubin (NEGATIVE) Urine Urobilinogen (0.2) EU/dL Ur Leukocyte Esterase (NEGATIVE) Urine RBC (NOT SEEN) /HPF Urine WBC (NOT SEEN) /HPF Ur Squamous Epith Cells (NEGATIVE) /HPF Urine Bacteria (NEGATIVE) /HPF Urine Mucus (NEGATIVE) /LPF 12/09/18 Range/Units 23:34 WBC (4.0-10.0) x10^3/uL RBC (4.00-5.50) x10^6/uL Hgb (12.0-16.0) g/dL Hct (33.0-47.0) % MCV (78.0-93.0) fL MCH (26.0-32.0) pg MCHC (32.0-36.0) g/dL RDW Coeff of Gamaliel (10.0-15.0) % Plt Count (130-400) x10^3/uL Neut % (Auto) (50.0-80.0) % Lymph % (Auto) (25.0-50.0) % [place]rie % (Auto) (2.0-11.0) % Eos % (Auto) (0.0-4.0) % Baso % (Auto) (0.2-1.2) % Sodium (136-145) mmol/L Potassium (3.5-5.1) mmol/L Chloride (98-107) mmol/L Carbon Dioxide (21-32) mmol/L Anion Gap (10-20) mmol/L BUN (7-18) mg/dL Creatinine (0.55-1.02) mg/dL Est Cr Clr Drug Dosing Estimated GFR (MDRD) Glucose (74-106) mg/dL Calcium (8.5-10.1) mg/dL Amylase (25-115) U/L Lipase (73-393) U/L Urine Color Yellow (YELLOW) Urine Appearance Clear (CLEAR) Urine pH 5.5 (5.0-8.0) Ur Specific [place] 1.020 Urine Protein Negative (NEGATIVE) mg/dL Urine Glucose (UA) Negative (NEGATIVE) mg/dL Urine Ketones Negative (NEGATIVE) mg/dL Urine Occult Blood Trace-intact H (NEGATIVE) Urine Nitrite Negative (NEGATIVE) Urine Bilirubin Negative (NEGATIVE) Urine Urobilinogen 0.2 (0.2) EU/dL Ur Leukocyte Esterase Small H (NEGATIVE) Urine RBC 0-5 (NOT SEEN) /HPF Urine WBC 0-5 (NOT SEEN) /HPF Ur Squamous Epith Cells Rare (NEGATIVE) /HPF Urine Bacteria Not seen (NEGATIVE) /HPF Urine Mucus Not seen (NEGATIVE) /LPF Meds: Medications Generic Name Dose Route Start Last Admin Trade Name Freq PRN Reason Stop Dose Admin Sodium Chloride 10 ml 12/09/18 22:27 Saline Flush FLUSH ASDIRECTED PRN Keep Vein Open Discontinued Medications Generic Name Dose Route Start Last Admin Trade Name Freq PRN Reason Stop Dose Admin Sodium Chloride 1,000 mls @ 999 mls/hr 12/09/18 22:27 12/09/18 23:06 Normal Saline IV 12/09/18 23:27 999 mls/hr ONETIME ONE Administration Ondansetron HCl 4 mg 12/09/18 22:27 12/09/18 23:06 Zofran IVPUSH 12/09/18 22:28 4 mg ONETIME ONE Administration Departure - Departure Time of Disposition: 23:48 Disposition: Home, Self-Care 01 Condition: Good Clinical Impression: Constipation Qualifiers: Constipation type: unspecified constipation type Qualified Code(s): K59.00 - Constipation, unspecified - Discharge Information *PRESCRIPTION DRUG MONITORING PROGRAM REVIEWED*: Not Applicable *COPY OF PRESCRIPTION DRUG MONITORING REPORT IN PATIENT ADDY: Not Applicable Instructions: Constipation, Adult Referrals: Aniya Laws MD [Primary Care Provider] - Forms: ED Department Discharge Additional Instructions: Stay very well hydrated and rest. Increase roughage in diet. Recommend trying MiraLAX or Senokot [id number]. Follow-up with primary care provider as symptoms warrant. - Problem List Review Problem List Initiated/Reviewed/Updated: Yes - My Orders Last 24 Hours: My Active Orders 12/09/18 22:27 Abdomen 2V AP Flat Upright [CR] Stat Sodium Chloride 0.9% [Saline Flush] 10 ml FLUSH ASDIRECTED PRN Peripheral IV Insertion Adult [OM.PC] Routine 12/09/18 23:34 CULTURE URINE [RM] Stat - Assessment/Plan Last 24 Hours: My Active Orders 12/09/18 22:27 Abdomen 2V AP Flat Upright [CR] Stat Sodium Chloride 0.9% [Saline Flush] 10 ml FLUSH ASDIRECTED PRN Peripheral IV Insertion Adult [OM.PC] Routine 12/09/18 23:34 CULTURE URINE [RM] Stat Assessment:: Constipation Plan: Lab and x-ray findings were discussed with the patient. The patient appears to be constipated. We'll recommend [id number] products for her symptoms. Patient is to stay well-hydrated. Follow-up with primary care provider as symptoms warrant.
[2018-12-09 22:39] VITALS: BP 146/69
[2018-12-09 22:58] LABS: CHLORIDE,CL 108 mmol/L (98-107); SODIUM,NA 145 mmol/L (136-145)
--- NOTE | 2018-12-10 09:10 | CR ---
[id number] RAD/RAD Abd Flat and Upright 2V EXAM: RAD Abd Flat and Upright 2V INDICATION: PAIN. COMPARISON: None. DISCUSSION: Unobstructed bowel gas pattern. No radiographically evident pneumoperitoneum. Moderate amount of retained stool within the colon. Advanced multilevel degenerative changes of the visualized spine. Postsurgical changes of the left hip with stable appearance of the prosthesis. IMPRESSION: Moderate amount retained stool within the colon. No evidence of obstruction. Piero Goddard DO 12/10/18 [id number] Thank you for allowing us to participate in the care of your patient.
== END 2018-12-10 00:02 | disposition home or self-care (01) ==
LOC: VM.ED 22:19
DX: K59.00 Constipation, unspecified (principal); I25.10 Atherosclerotic heart disease of native coronary artery without angina pectoris; E78.00 Pure hypercholesterolemia, unspecified; I10 Essential (primary) hypertension; I25.2 Old myocardial infarction; J44.9 Chronic obstructive pulmonary disease, unspecified; Z88.8 Allergy status to other drugs, medicaments and biological substances; Z95.5 Presence of coronary angioplasty implant and graft; Z88.0 Allergy status to penicillin; Z88.2 Allergy status to sulfonamides; Z79.899 Other long term (current) drug therapy; Z79.82 Long term (current) use of aspirin
CPT/HCPCS: 74019; 80048; 81001; 82150; 83690; 85025; 87086; 87088; 87186; 96361; 96374; 99283; J2405; J7030

== ENCOUNTER 2020-10-23 15:25 | Inpatient (IN) | payer MEDICARE, OTHER ==
[2020-10-23] MEDS ORDERED: Acetaminophen 325 MG Tab PO PRN (15:47)
[2020-10-23] MEDS ORDERED: Albuterol HFA 18 Gm Inhaler INH PRN (15:47)
[2020-10-23] MEDS ORDERED: DENOSUMAB 60 MG SUBCUT SCH (16:00)
[2020-10-23 16:36] LABS: CHLORIDE,CL 103 mmol/L (98-107); SODIUM,NA 143 mmol/L (136-145)
[2020-10-23 16:40] LABS: ANION GAP 15.6 mmol/L (5-15)
--- NOTE | 2020-10-23 17:16 | CR ---
[id number] RAD/RAD Chest PA And Lateral EXAM: RAD Chest PA And Lateral CLINICAL DATA: COPD COMPARISON: CORRELATION IS MADE WITH MARCH 07, 2017 FINDINGS: The lungs are clear but hyperaerated The cardiomediastinal contour is stable Surgical clips are seen in the left axillary region IMPRESSION: STABLE CHEST Davey Beard MD 10/23/20 [id number] Thank you for allowing us to participate in the care of your patient.
--- NOTE | 2020-10-23 17:19 | CT ---
[id number] CT/CT Head WO IV EXAM: CT Head WO IV CLINICAL DATA: CHANGE IN MENTAL STATUS COMPARISON: CORRELATION IS MADE WITH OCTOBER 01, 2015 FINDINGS: There is no mass or mass effect. There is no hemorrhage or hydrocephalus. There are no extra-axial fluid collections. There are no sites of abnormal attenuation. IMPRESSION: NO PLAIN CT EVIDENCE OF ACUTE INTRACRANIAL PROCESS. Davey Beard MD 10/23/20 [id number] Thank you for allowing us to participate in the care of your patient.
[2020-10-23] MEDS ORDERED: Sodium Chloride 0.9% 1,000 ML IV ONE (19:32)
[2020-10-23] MEDS: Omeprazole 20 MG Cap.CR PO SCH (19:44)
[2020-10-23] MEDS: atorvaSTATin 10 MG Tab PO SCH (19:44)
[2020-10-23] MEDS: Metoprolol Tartrate 25 MG Tab PO SCH (19:45)
[2020-10-23] MEDS: Levofloxacin 250 MG Tab PO SCH (20:47)
[2020-10-23] MEDS ORDERED: Budesonide 0.5 MG/2 ML Neb Susp NEB ONE (21:00)
[2020-10-23] MEDS: Fluticasone-Salmeterol 55-14 MCG Powder Inhalent INH SCH (21:16)
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
[2020-10-24] MEDS ORDERED: Calcium Carbonate 750 MG Tab.Chew PO SCH (08:00)
[2020-10-24] MEDS: Cholecalciferol (Vitamin D3) 25 MCG Tab PO SCH (08:27)
[2020-10-24] MEDS: Aspirin 81 MG Tab.Chew PO SCH (08:27)
[2020-10-24] MEDS: Multivitamins with Iron/Calcium/Folic Acid/Minerals Tab PO SCH (08:27)
[2020-10-24] MEDS: Cyanocobalamin (Vitamin B12) 250 MCG Tab PO SCH (08:27)
[2020-10-24] MEDS: Omeprazole 20 MG Cap.CR PO SCH ×2 (08:27→20:15)
[2020-10-24] MEDS: Magnesium Oxide 400 MG Tab PO SCH (08:28)
[2020-10-24] MEDS: Metoprolol Tartrate 25 MG Tab PO SCH ×2 (08:28→20:14)
[2020-10-24] MEDS: Sodium Chloride 0.9% 10 ML Syringe FLUSH PRN ×2 (08:34→20:20)
[2020-10-24] MEDS: Glycopyrrolate 15.6 MCG Cap.W.Dev Kit of 6 IH SCH ×2 (08:34→20:22)
[2020-10-24 08:36] LABS: ANION GAP 13.1 mmol/L (5-15)
--- NOTE | 2020-10-24 10:40 | PN ---
Progress Note for DANY FAIRCHILD Date: 10/24/2020 Room #: VM.215 SUBJECTIVE: This is the patient's second hospital day. She was admitted yesterday with failure to thrive, increased confusion. She was found to have a bladder infection as well as acute kidney injury with some dehydration. She was started on Levaquin antibiotics and some IV fluids. This morning, she offers no complaints. She is just pleasantly confused and she has not yet been seen by Therapies yet. OBJECTIVE: Vital Signs: Her weight has not been done yet today. Her temperature is 36.7, blood pressure is 136/49, pulse is 100, respiratory rate is 17, sats are 96%. General: She is sitting pleasantly in the bed. She appears pleasantly confused, not very vocal in terms of asking the results of her tests. Denies new pain. Heart: Regular rate and rhythm. Lungs: Clear to auscultation. Abdomen: Bowel sounds present. Soft, nontender. Lower Extremities: No edema. LABORATORY DATA: Today shows her hemoglobin has dropped to 10.2, white blood cell count 7.7, platelets are 177. Iron is low at 45. TIBC low at 172. Percent saturation normal at 27.7. Ferritin high at 368. Pending yet is a basic metabolic profile. IMPRESSION: 1. Failure to thrive. 2. Urinary tract infection. 3. Acute kidney injury with dehydration. 4. Anemia of chronic disease. 5. Chronic obstructive pulmonary disease. 6. Vascular dementia. PLAN: Will have therapies work with her today. We will see what the results of the basic metabolic profile are. The patient will need to have placement determined after therapies are done evaluating her. Also, the patient most likely should be started on Aricept for memory, but we will wait until we see how her appetite is today since family had much concerns for that. GM10/24/2020 08:30:26 MODL: 10/24/2020 09:06:00 /[id number]
[2020-10-24] MEDS: Fluticasone-Salmeterol 55-14 MCG Powder Inhalent INH SCH (11:01)
[2020-10-24] MEDS: atorvaSTATin 10 MG Tab PO SCH (20:14)
[2020-10-24] MEDS: Levofloxacin 250 MG Tab PO SCH (20:15)
[2020-10-24] MEDS: ADVAIR INH SCH (20:21)
[2020-10-25 07:18] LABS: ANION GAP 13.9 mmol/L (5-15)
[2020-10-25 07:22] LABS: HEMOGLOBIN A1C 6.1 % (<5.7)
[2020-10-25] MEDS: Cyanocobalamin (Vitamin B12) 250 MCG Tab PO SCH (08:09)
[2020-10-25] MEDS: Multivitamins with Iron/Calcium/Folic Acid/Minerals Tab PO SCH (08:09)
[2020-10-25] MEDS: Glycopyrrolate 15.6 MCG Cap.W.Dev Kit of 6 IH SCH ×2 (08:09→19:38)
[2020-10-25] MEDS: Cholecalciferol (Vitamin D3) 25 MCG Tab PO SCH (08:10)
[2020-10-25] MEDS: Metoprolol Tartrate 25 MG Tab PO SCH ×3 (08:10→19:35)
[2020-10-25] MEDS: Aspirin 81 MG Tab.Chew PO SCH (08:15)
[2020-10-25] MEDS: Magnesium Oxide 400 MG Tab PO SCH (08:15)
[2020-10-25] MEDS: Omeprazole 20 MG Cap.CR PO SCH ×2 (08:15→19:36)
[2020-10-25] MEDS: ADVAIR INH SCH ×2 (08:16→19:38)
--- NOTE | 2020-10-25 08:33 | PN ---
Progress Note for DANY FAIRCHILD Date: 10/25/2020 Room #: VM.215 SUBJECTIVE: The patient missed with physical therapy last night and was noted to be quite weak without her walker. The patient otherwise herself is very forgetful, pleasantly confused. OBJECTIVE: Vital Signs: Her weight is pending yet today. Her blood pressure is 172/71. Her pulse was 114 initially, is now down to 100, it is regular; respiratory rate 18, saturations are 94%. Skin: [place], warm, and dry. Heart: Regular rate and rhythm. Lungs: Clear to auscultation. Neurologic: The patient is confused. LABORATORY DATA: Her urine culture is growing gram-negative rods. Id is still pending. Her hemoglobin has slightly reduced to 9.6. Sodium is 145, potassium 3.9, creatinine is 1.5, GFR is improved to 33. Fasting blood sugar is 125. Hemoglobin A1c is 6.1. IMPRESSION: 1. Failure to thrive. 2. Frequent falls. 3. Urinary tract infection. 4. Alzheimer's dementia. 5. Hypertension. 6. Tachycardia. PLAN: We will increase her metoprolol to 37.5 mg b.i.d. We will start her on Aricept and the patient will be looking for placement to a long-term care facility, and we will also stop her saline lock today. GM10/25/2020 08:10:31 MODL: 10/25/2020 08:27:00 /[id number]
[2020-10-25] MEDS: Donepezil 5 MG Tab PO SCH (19:35)
[2020-10-25] MEDS: Levofloxacin 250 MG Tab PO SCH (19:35)
[2020-10-25] MEDS: atorvaSTATin 10 MG Tab PO SCH (19:36)
[2020-10-25] MEDS: Cefuroxime 250 MG Tab PO SCH (22:25)
[2020-10-26] MEDS: Glycopyrrolate 15.6 MCG Cap.W.Dev Kit of 6 IH SCH ×2 (08:35→19:56)
[2020-10-26] MEDS: ADVAIR INH SCH ×2 (08:35→19:56)
[2020-10-26] MEDS: Cyanocobalamin (Vitamin B12) 250 MCG Tab PO SCH (08:36)
[2020-10-26] MEDS: Cholecalciferol (Vitamin D3) 25 MCG Tab PO SCH (08:38)
[2020-10-26] MEDS: Magnesium Oxide 400 MG Tab PO SCH (08:38)
[2020-10-26] MEDS: Cefuroxime 250 MG Tab PO SCH ×2 (08:38→19:52)
[2020-10-26] MEDS: Aspirin 81 MG Tab.Chew PO SCH (08:38)
[2020-10-26] MEDS: Omeprazole 20 MG Cap.CR PO SCH ×2 (08:38→19:50)
[2020-10-26] MEDS: Multivitamins with Iron/Calcium/Folic Acid/Minerals Tab PO SCH (08:38)
[2020-10-26] MEDS: Metoprolol Tartrate 25 MG Tab PO SCH ×2 (08:39→19:50)
--- NOTE | 2020-10-26 08:54 | PN ---
Progress Note for DANY FAIRCHILD Date: 10/26/2020 Room #: VM.215 SUBJECTIVE: The patient is feeling stronger, a little bit more alert, cognizant. She has been working with therapies. It was noted yesterday, blood pressure was elevated as well as her pulse, so her dose of metoprolol was just changed today, and her urine sensitivities were also back with being not sensitive to Levaquin, so she was switched to Ceftin last night. OBJECTIVE: Vital Signs: Today, her weight is pending, but yesterday she was up 2 kg from admission. Her temperature is 37.4, pulse 110, blood pressure is 161/68, respiratory rate is 20, sats are 95% on room air. General: She is more alert. Does seem to talk more in sentences. Heart: Regular rate and rhythm. Lungs: Clear to auscultation. Abdomen: Soft. Extremities: No edema. LABORATORY DATA: Today shows her hemoglobin has finally stabilized at 9.9. Urine culture came back showing E coli, which was resistant to quinolones, but sensitive to cephalosporins. IMPRESSION: 1. Failure to thrive. 2. Urinary tract infection with Escherichia coli. 3. Frequent falls. 4. Alzheimer dementia with vascular dementia. 5. Hypertension. 6. Tachycardia. PLAN: We will continue her on her Ceftin. We are awaiting senior living placement, which I anticipate either today or tomorrow, and so if it will be longer than that, then the patient would need to go to a swing bed. GM10/26/2020 08:12:19 MODL: 10/26/2020 08:46:17 /[id number]
[2020-10-26] MEDS: atorvaSTATin 10 MG Tab PO SCH (19:52)
[2020-10-26] MEDS: Donepezil 5 MG Tab PO SCH (19:52)
[2020-10-27] MEDS: Cyanocobalamin (Vitamin B12) 250 MCG Tab PO SCH (07:56)
[2020-10-27] MEDS: Multivitamins with Iron/Calcium/Folic Acid/Minerals Tab PO SCH (07:56)
[2020-10-27] MEDS: Omeprazole 20 MG Cap.CR PO SCH (07:56)
[2020-10-27] MEDS: Aspirin 81 MG Tab.Chew PO SCH (07:56)
[2020-10-27] MEDS: Metoprolol Tartrate 25 MG Tab PO SCH (07:56)
[2020-10-27] MEDS: Cefuroxime 250 MG Tab PO SCH (07:56)
[2020-10-27] MEDS: Magnesium Oxide 400 MG Tab PO SCH (07:56)
[2020-10-27] MEDS: Cholecalciferol (Vitamin D3) 25 MCG Tab PO SCH (07:56)
[2020-10-27] MEDS: ADVAIR INH SCH (07:57)
[2020-10-27] MEDS: Glycopyrrolate 15.6 MCG Cap.W.Dev Kit of 6 IH SCH (08:26)
--- NOTE | 2020-10-27 09:33 | DISCH ---
PRIMARY DIAGNOSES: 1. Failure to thrive. 2. Multiple falls. 3. Urinary tract infection with Escherichia coli. 4. Dementia from vascular as well as Alzheimer's dementia. 5. Chronic obstructive pulmonary disease. 6. Anemia of chronic disease. 7. Hyperglycemia. 8. Hypertension. 9. History of pancreatic duct abnormality. 10.History of breast cancer. 11.Osteoporosis. 12.Peptic ulcer disease. 13.Schneider's esophagitis. 14.Coronary artery disease. 15.Acute kidney injury with mild dehydration. 16. Hypercalcemia. SUMMARY OF ADMIT HISTORY AND PHYSICAL: The patient is an 85-year-old female who was living in an apartment with family living in the same building. She was noted to have previous cognitive dysfunction and had been living in assisted living, but because of COVID, family was concerned about her not being able to visit with family, so they had moved her to this home apartment, and she had not been seen by a medical provider in over a year and a half. The patient was noted to be incontinent, having difficulty with self cares. She has fallen which was unwitnessed a few times and no specific injuries. The patient is a poor historian and not able to give good history as to what was occurring. The patient did have a mini-mental status exam done at the clinic by myself which showed 13/30. SUMMARY OF HOSPITAL COURSE: The patient was felt in need of acute care with hydration to rule out other causes of her cognitive decline. Her lab on admission showed her hemoglobin of 11.8, white blood cell count 9.3, platelets 192. Sodium 143, potassium 4.6, creatinine 1.8, BUN 20, GFR 27, glucose 148, calcium 11.32, AST 26, ALT 24, alkaline phosphatase 104. CRP 1.5, albumin 3.6, amylase 28, lipase 47. Vitamin B12 greater than 1500. TSH 2.0. Urinalysis was positive for infection. COVID test was both negative on admit The patient did have CT imaging of her head which showed chronic microvascular changes and no acute injuries. Her oral calcium was held. The patient had a chest x-ray done which just showed COPD changes, but otherwise stable. Her EKG was stable. The patient was noted to have some tachycardia while she was here and her blood pressure was not well controlled, so she did have increase of her metoprolol for better blood pressure control. The patient was noted to become more anemic as she was hydrated. The patient had initially been placed on Levaquin for UTI, but then was found to need to be switched to Ceftin., when sensitivities of E Coli came out The patient was started on Aricept as well for memory and her metoprolol did have to be increased to help with better blood pressure control. The patient was seen by OT and PT and felt not to be safe at home alone. She walks with a walker. She was very forgetful and needed much coaching. The patient though did become more alert, smiling, talkative, a little bit more cognizant than when she was first seen. Her laboratory data on 10/25/2020 showed hemoglobin 9.6, platelets 168. Her hemoglobin on 10/26/2020 was 9.9, so felt to be stabilized. Her sodium was 145, potassium 3.9. Creatinine stabilized at 1.5, BUN was down to 14, GFR was 33. Glucose check fasting was 125. Hemoglobin A1c was checked at 6.1. She did have iron studies done that showed iron was low at 45, TIBC low at 175, percent saturation normal at 27.5, ferritin high at 368. Urine culture did come back showing E coli.She had a negative COVID test on 10/26/20 prior to discharge. MEDICATIONS: The patient's medications at the time of discharge will be Advair 100/50 one puff b.i.d.; albuterol 2 puffs q.4 hours p.r.n.; multivitamin 1 pill daily; vitamin D3 at 2000 units daily; Lipitor 20 mg at bedtime; Incruse inhaler 1 puff daily; Tylenol 650 q.4 hours p.r.n.; vitamin B12 50 mcg daily; magnesium oxide 400 mg 1 pill daily; omeprazole 20 mg 1 pill b.i.d.; aspirin 81 mg 1 pill daily; Prolia 60 mg subcu, the patient is due for an infusion of this when it can be arranged as an outpatient once she is at [facility]; Aricept 5 mg 1 pill at bedtime; Ceftin 250 mg 1 pill twice a day for 2 more days; metoprolol 25 mg 1 1/2 pills b.i.d. The patient will see PT, OT. The patient is code level 2, do not resuscitate/do not intubate. I do anticipate the patient's condition to continue to decline due to her dementia. The patient in a month's time most likely will need to be increased on her Aricept. She is due for lab work in 2 weeks of CBC for anemia of chronic disease, CMP for HTN, and Mag for hypomagnesemia. Over 30 minutes time was spent doing discharge. GM10/27/2020 08:22:08 MODL: 10/27/2020 09:18:25 /[id number]
[2020-10-27 10:27] VITALS: BP 151/64; PULSE 89
== END 2020-10-27 13:45 | DRG 884 ==
LOC: VM.MS 15:25
PROVIDERS: ADMIT Family Medicine; ATTEND Family Medicine
DX: F01.50 Vascular dementia, unspecified severity, without behavioral disturbance, psychotic disturbance, mood disturbance, and anxiety (principal); N39.0 Urinary tract infection, site not specified; N17.9 Acute kidney failure, unspecified; R62.7 Adult failure to thrive; G30.9 Alzheimer's disease, unspecified; R29.6 Repeated falls; B96.20 Unspecified Escherichia coli [E. coli] as the cause of diseases classified elsewhere; F02.80 Dementia in other diseases classified elsewhere, unspecified severity, without behavioral disturbance, psychotic disturbance, mood disturbance, and anxiety; J44.9 Chronic obstructive pulmonary disease, unspecified; D63.8 Anemia in other chronic diseases classified elsewhere; I10 Essential (primary) hypertension; M81.0 Age-related osteoporosis without current pathological fracture; K27.9 Peptic ulcer, site unspecified, unspecified as acute or chronic, without hemorrhage or perforation; K22.70 Barrett's esophagus without dysplasia; I25.10 Atherosclerotic heart disease of native coronary artery without angina pectoris; E86.0 Dehydration; E83.52 Hypercalcemia; Z20.822 Contact with and (suspected) exposure to COVID-19; Z66 Do not resuscitate; E83.42 Hypomagnesemia; I50.9 Heart failure, unspecified; M54.5 Low back pain; G89.29 Other chronic pain; I11.0 Hypertensive heart disease with heart failure; R00.0 Tachycardia, unspecified; Z85.3 Personal history of malignant neoplasm of breast; Z79.51 Long term (current) use of inhaled steroids; Z79.82 Long term (current) use of aspirin; Z79.899 Other long term (current) drug therapy; Z86.73 Personal history of transient ischemic attack (TIA), and cerebral infarction without residual deficits; Z88.0 Allergy status to penicillin; Z88.2 Allergy status to sulfonamides; Z88.8 Allergy status to other drugs, medicaments and biological substances; I25.2 Old myocardial infarction; Z87.891 Personal history of nicotine dependence; Z98.49 Cataract extraction status, unspecified eye; Z90.49 Acquired absence of other specified parts of digestive tract; Z90.13 Acquired absence of bilateral breasts and nipples
CPT/HCPCS: 36415; 70450; 71046; 80048; 80053; 81001; 82150; 82607; 82728; 83036; 83540; 83550; 83690; 83735; 83970; 84443; 85014; 85018; 85025; 86140; 87086; 87088; 87186; 93005; 94640; 97129-GO; 97130-GO; 97161-GP; 97165-GO; 97530-GP; 97535-GO; A9270-GY; J7030; U0002

== ENCOUNTER 2021-01-29 15:54 | Observation (INO) | payer MEDICARE, OTHER ==
[2021-01-29] MEDS ORDERED: Sodium Chloride 0.9% 10 ML Syringe FLUSH PRN (16:06)
--- NOTE | 2021-01-29 16:48 | EDM.PDOC ---
ED HPI GENERAL MEDICAL PROBLEM - General Chief Complaint: Neurological Problem Stated Complaint: ER VISIT Time Seen by Provider: 01/29/21 16:00 Source of Information: Reports: Patient History Limitations: Reports: No Limitations - History of Present Illness INITIAL COMMENTS - FREE TEXT/NARRATIVE: presents to ER via EMS. She is a resident at [facility] and had a episode of decreased LOC this afternoon. Staff states to EMS that she was responsive to painful stimuli. EMS was summoned. EMS stated that pt. has since become more alert and is awake. She is maintaining her own airway. Pt. was started on Keflex 250mg TID for 3 days for UTI. Culture positive for e coli, resistant to ampicillin, cipro, gentamicin,tobramycin, levofloxacin and intermediate activity of augmentin. senior living was contacted. Pt. has been fatigued and less active for several days. She has been much less active over the past several days. They state that they noticed a decline in her mental status approx. 1.5-2 weeks ago. They state that today she was sitting on her bed and fell backward, striking her head on the heater. Treatments PRODUCTION SUPERINTENDENT HYDRO: Reports: IV/IO - Related Data Allergies Allergy/AdvReac Type Severity Reaction Status Date / Time nitrofurantoin Allergy Unknown Cannot Verified 01/29/21 20:09 [From Macrobid] Remember nitrofurantoin Allergy Unknown Cannot Verified 01/29/21 20:09 macrocrystalline Remember [From Macrobid] Penicillins Allergy Unknown Itching Verified 01/29/21 20:09 Sulfa (Sulfonamide Allergy Cannot Verified 01/29/21 20:09 Antibiotics) Remember alendronate sodium AdvReac Intermediate Nausea Verified 01/29/21 20:09 [From Fosamax] Home Meds: Home Meds Fluticasone/Salmeterol [Advair 100-50] 1 puff INH BID 04/18/14 [History] Cholecalciferol (Vitamin D3) [Vitamin D3] 1,000 units PO DAILY 03/08/15 [History] Multivitamin with Minerals [Multiple Vitamin] 1 tab PO DAILY 03/08/15 [History] atorvaSTATin [Lipitor] 20 mg PO BEDTIME #30 tablet 03/17/15 [Rx] Acetaminophen [Tylenol] 650 mg PO Q4H PRN 07/19/16 [History] Umeclidinium [place] [Incruse Ellipta] 1 puff PO DAILY 07/19/16 [History] Cyanocobalamin (Vitamin B-12) [B-12 Dots] 500 mcg PO DAILY 03/07/17 [History] Magnesium Oxide 400 mg PO DAILY 08/18/18 [History] Omeprazole Magnesium [Prilosec Otc] 40 mg PO DAILY 12/09/18 [History] Metoprolol Tartrate [Lopressor] 37.5 mg PO BID #90 tablet 10/26/20 [Rx] Aspirin [Halfprin] 81 mg PO DAILY 01/29/21 [History] Donepezil HCl [Aricept] 10 mg PO DAILY 01/29/21 [History] Non-Formulary Medication [NF Drug] 1 cap PO BID 01/29/21 [History] Non-Formulary Medication [NF Drug] 2 puff INH Q4H PRN 01/29/21 [History] bisacodyL [Bisacodyl] 5 mg PO DAILY PRN 01/29/21 [History] Past Medical History HEENT History: Reports: Cataract, Glaucoma, Macular Degeneration, Other (See Below) Other HEENT History: pseudophakos. presbyopia Cardiovascular History: Reports: CAD, High Cholesterol, Hypertension, [place], Syncope Other Cardiovascular History: vascular dementia. cerebral vascular disease. non STEMI. other specified cardiac dysrhythmias Respiratory History: Reports: COPD, Pneumonia, Recurrent Other Respiratory History: emphysema, pneumonia. pulmonary nodules/lesions, multiple Gastrointestinal History: Reports: Colon Polyp, Helicobacter Pylori, Pancrea titis, PUD Other Gastrointestinal History: sotelo's esophagus, pancreatic duct abnormality Genitourinary History: Reports: Hydronephrosis, Urinary Incontinence Other Genitourinary History: Mass right kidney DISTRIBUTION SYSTEMS SUPERINTENDENT History: Reports: None Other DISTRIBUTION SYSTEMS SUPERINTENDENT History: vaginal discharge Musculoskeletal History: Reports: Back Pain, Chronic, Osteoporosis Other Musculoskeletal History: chronic pain left knee,. knee strain. pelvic co ntusion. pelvic pain. Bilateral hip pain. thigh pain. Closed compression fracture of first lumbar vertebra Neurological History: Reports: CVA Other Neuro History: cerebral amyloid angiopathy. ICH-intracarebral hemorrhage. abnormal MRI of head. intermittant confusion Psychiatric History: Reports: None, Dementia Other Psychiatric History: smoking. cognitive dysfunction. malaise and fatigue. tobacco use disorder. high risk medication use Endocrine/Metabolic History: Reports: Hypomagnesemia, Osteoporosis Other Endocrine/Metabolic History: underwt. hyperglycemia. hypophosphatemia Hematologic History: Reports: Anemia Other Hematologic History: hypomagnesemiavit d deficiency. red blood cell antibody positive Immunologic History: Reports: None Oncologic (Cancer) History: Reports: Breast Dermatologic History: Reports: Other (See Below) Other Dermatologic History: skin lesion of face - Infectious Disease History Infectious Disease History: Reports: None - Past Surgical History HEENT Surgical History: Reports: Cataract Surgery Other HEENT Surgeries/Procedures: pseudophakos. presbyopia Cardiovascular Surgical History: Reports: None Respiratory Surgical History: Reports: None GI Surgical History: Reports: Cholecystectomy Female Surgical History: Reports: D&C, Mastectomy, Oophorectomy, Tubal Ligation Endocrine Surgical History: Reports: None Neurological Surgical History: Reports: None Musculoskeletal Surgical History: Reports: Hip Replacement, Joint Replacement Oncologic Surgical History: Reports: Mastectomy Social & Family History - Family History Family Medical History: No Pertinent Family History Cardiac: Reports: [place] Respiratory: Reports: COPD OBGYN: Reports: Musculoskeletal: Reports: Osteoarthritis Oncologic: Reports: Breast, Other (See Below) - Tobacco Use Tobacco Use Status *Q: Unknown Ever Used Tobacco - Caffeine Use Caffeine Use: Reports: Coffee - Living Situation & Occupation Living situation: Reports: , Assisted Living Occupation: Retired ED ROS GENERAL - Review of Systems Review Of Systems: See Below Constitutional: Reports: Malaise, Weakness, Fatigue HEENT: Reports: No Symptoms Respiratory: Reports: No Symptoms Cardiovascular: Reports: No Symptoms Endocrine: Reports: No Symptoms GI/Abdominal: Reports: No Symptoms : Reports: No Symptoms Musculoskeletal: Reports: No Symptoms Skin: Reports: No Symptoms Neurological: Reports: Confusion, Other (Initially resistive to care, attempting to get out of bed. Does not follow commands. ) Psychiatric: Reports: Agitation, Confusion Hematologic/Lymphatic: Reports: No Symptoms Immunologic: Reports: No Symptoms ED EXAM, GENERAL - Physical Exam Exam: See Below Exam Limited By: No Limitations General Appearance: Alert, WD/WN, No Apparent Distress Eye Exam: Bilateral Eye: EOMI, Normal Fundi, Normal Inspection, PERRL Throat/Mouth: Normal Inspection, Normal Lips, Normal Oropharynx, Normal Voice, No Airway Compromise Head: Atraumatic, Normocephalic Neck: Normal Inspection, Supple, Non-Tender, Full Range of Motion Respiratory/Chest: No Respiratory Distress, Lungs Clear, Normal Breath Sounds, No Accessory Muscle Use, Chest Non-Tender Cardiovascular: Normal Peripheral Pulses, Regular Rate, Rhythm, No Edema, No JVD, No Murmur Peripheral Pulses: 4+: Radial (R) GI/Abdominal: Soft, No Organomegaly, No Distention, No Mass (Female) Exam: Deferred Rectal (Female) Exam: Deferred Back Exam: Normal Inspection, Full Range of Motion Extremities: Normal Inspection, No Pedal Edema, Normal Capillary Refill Neurological: CN II-XII Intact, No Motor/Sensory Deficits, Inattentive, Confused, Disoriented, Other (would not follow commands. Moves all extremities equally. No facial droop. ) Psychiatric: Anxious Skin Exam: Warm, Dry, Intact, No Rash, Pallor Lymphatic: No Adenopathy Course - Vital Signs Last Recorded V/S: Last Vital Signs Temp 37.7 C 01/29/21 22:42 Pulse 93 01/29/21 22:42 Resp 18 01/29/21 22:42 BP 140/80 01/29/21 22:42 Pulse Ox 95 01/29/21 22:42 - Orders/Labs/Meds Orders: Active Orders 24 hr Category Date Time Status EKG Documentation Completion [RC] STAT Care 01/29/21 16:08 Active CULTURE BLOOD [BC] Stat Lab 01/29/21 16:25 Received CULTURE BLOOD [BC] Stat Lab 01/29/21 16:32 Received Sodium Chloride 0.9% [Saline Flush] Med 01/29/21 16:06 Active 10 ml FLUSH ASDIRECTED PRN Blood Culture x2 Reflex Set [OM.PC] Stat Oth 01/29/21 16:07 Ordered Peripheral IV Insertion Adult [OM.PC] Routine Oth 01/29/21 16:07 Ordered Medication Orders Acetaminophen (Acetaminophen 325 Mg Tab) 650 mg PO Q4H PRN PRN Reason: Pain Aspirin (Aspirin 81 Mg Tab.Ec) 81 mg PO DAILY ZACKARY Atorvastatin Calcium (Atorvastatin 10 Mg Tab) 20 mg PO BEDTIME ZACKARY Bisacodyl (Bisacodyl 5 Mg Tab) 5 mg PO DAILY PRN PRN Reason: Constipation Donepezil HCl (Donepezil 10 Mg Tab) 10 mg PO DAILY ZACKARY Flumazenil (Flumazenil 0.1 Mg/Ml 5 Ml Mdv) 0.2 mg IVPUSH ASDIRECTED PRN PRN Reason: Respiratory Depression Sodium Chloride (Normal Saline) 1,000 mls @ 150 mls/hr IV ASDIRECTED ZACKARY Last Admin: 01/29/21 20:43 Dose: 150 mls/hr Documented by: JARED Metoprolol Tartrate (Metoprolol Tartrate 25 Mg Tab) 37.5 mg PO BID ZACKARY Non-Formulary Medication (Cholecalciferol (Vitamin D3) [Vitamin D3]) 1,000 units PO DAILY ZACKARY Non-Formulary Medication (Cyanocobalamin (Vitamin B-12) [B-12 Dots]) 500 mcg PO DAILY ZACKARY Non-Formulary Medication (Fluticasone/Salmeterol) 1 puff INH BID ZACKARY Non-Formulary Medication (Magnesium Oxide [Magnesium Oxide]) 400 mg PO DAILY ZACKARY Non-Formulary Medication (Multivitamin With Minerals [Multiple Vitamin]) 1 tab PO DAILY ZACKARY Non-Formulary Medication (Non-Formulary Medication 1 Each) each PO BID ZACKARY Non-Formulary Medication (Non-Formulary Medication 1 Each) each INH Q4H PRN PRN Reason: Shortness of Breath Non-Formulary Medication (Omeprazole Magnesium [Prilosec Otc]) 40 mg PO DAILY ZACKARY Non-Formulary Medication (Umeclidinium [place] [Incruse Ellipta]) 1 puff PO DAILY ZACKARY Sodium Chloride (Sodium Chloride 0.9% 10 Ml Syringe) 10 ml FLUSH ASDIRECTED PRN PRN Reason: Keep Vein Open Labs: Laboratory Tests 01/29/21 01/29/21 01/29/21 Range/Units 16:12 16:25 16:25 WBC 10.3 H (4.0-10.0) x10^3/uL RBC 3.97 L (4.00-5.50) x10^6/uL Hgb 11.5 L D (12.0-16.0) g/dL Hct 34.9 (33.0-47.0) % MCV 87.9 (78.0-93.0) fL MCH 29.0 (26.0-32.0) pg MCHC 33.0 (32.0-36.0) g/dL RDW Coeff of Gamaliel 14.1 (10.0-15.0) % Plt Count 172 (130-400) x10^3/uL Neut % (Auto) 76.4 (50.0-80.0) % Lymph % (Auto) 14.5 L (25.0-50.0) % [place] % (Auto) 8.7 (2.0-11.0) % Eos % (Auto) 0.3 (0.0-4.0) % Baso % (Auto) 0.1 L (0.2-1.2) % PT 11.5 (9.9-12.5) SEC INR 1.0 L (2.0-3.5) APTT (25.6-32.8) SEC Sodium (136-145) mmol/L Potassium (3.5-5.1) mmol/L Chloride (98-107) mmol/L Carbon Dioxide (21-32) mmol/L Anion Gap (5-15) mmol/L BUN (7-18) mg/dL Creatinine (0.55-1.02) mg/dL Est Cr Clr Drug Dosing Estimated GFR (MDRD) Glucose (70-99) mg/dL Lactic Acid (0.4-2.0) mmol/L Calcium (8.5-10.1) mg/dL Corrected Calcium (8.5-10.1) mg/dL Magnesium (1.8-2.4) mg/dL Total Bilirubin (0.2-1.0) mg/dL AST (15-37) U/L ALT (14-59) U/L Alkaline Phosphatase (46-116) U/L Troponin I High Sens (<=51) ng/L Total Protein (6.4-8.2) g/dL Albumin (3.4-5.0) g/dL Globulin Albumin/Globulin Ratio Urine Color Yellow (YELLOW) Urine Appearance Clear (CLEAR) Urine pH 6.0 (5.0-8.0) Ur Specific [place] 1.020 Urine Protein 30 H (NEGATIVE) mg/dL Urine Glucose (UA) Negative (NEGATIVE) mg/dL Urine Ketones Trace H (NEGATIVE) mg/dL Urine Occult Blood Negative (NEGATIVE) Urine Nitrite Negative (NEGATIVE) Urine Bilirubin Negative (NEGATIVE) Urine Urobilinogen 0.2 (0.2) EU/dL Ur Leukocyte Esterase Negative (NEGATIVE) Urine RBC 0-5 (NOT SEEN) /HPF Urine WBC 10-20 H (NOT SEEN) /HPF Ur Squamous Epith Cells Rare (NOT SEEN) /HPF Amorphous Sediment Few Urine Bacteria Few H (NOT SEEN) /HPF Urine Mucus Few H (NOT SEEN) /LPF SARS-CoV-2 RNA (SHARA) (NEGATIVE) 01/29/21 01/29/21 01/29/21 Range/Units 16:25 16:25 16:25 WBC (4.0-10.0) x10^3/uL RBC (4.00-5.50) x10^6/uL Hgb (12.0-16.0) g/dL Hct (33.0-47.0) % MCV (78.0-93.0) fL MCH (26.0-32.0) pg MCHC (32.0-36.0) g/dL RDW Coeff of Gamaliel (10.0-15.0) % Plt Count (130-400) x10^3/uL Neut % (Auto) (50.0-80.0) % Lymph % (Auto) (25.0-50.0) % [place] % (Auto) (2.0-11.0) % Eos % (Auto) (0.0-4.0) % Baso % (Auto) (0.2-1.2) % PT (9.9-12.5) SEC INR (2.0-3.5) APTT 23.2 L (25.6-32.8) SEC Sodium 141 (136-145) mmol/L Potassium 4.2 (3.5-5.1) mmol/L Chloride 104 (98-107) mmol/L Carbon Dioxide 26 (21-32) mmol/L Anion Gap 15.2 H (5-15) mmol/L BUN 26 H (7-18) mg/dL Creatinine 1.7 H (0.55-1.02) mg/dL Est Cr Clr Drug Dosing TNP Estimated GFR (MDRD) 28 Glucose 143 H (70-99) mg/dL Lactic Acid (0.4-2.0) mmol/L Calcium 9.0 (8.5-10.1) mg/dL Corrected Calcium 9.2 D (8.5-10.1) mg/dL Magnesium 2.0 (1.8-2.4) mg/dL Total Bilirubin 0.5 (0.2-1.0) mg/dL AST 25 (15-37) U/L ALT 24 (14-59) U/L Alkaline Phosphatase 80 (46-116) U/L Troponin I High Sens 10 (<=51) ng/L Total Protein 7.5 (6.4-8.2) g/dL Albumin 3.7 (3.4-5.0) g/dL Globulin 3.8 Albumin/Globulin Ratio 0.97 Urine Color (YELLOW) Urine Appearance (CLEAR) Urine pH (5.0-8.0) Ur Specific [place] Urine Protein (NEGATIVE) mg/dL Urine Glucose (UA) (NEGATIVE) mg/dL Urine Ketones (NEGATIVE) mg/dL Urine Occult Blood (NEGATIVE) Urine Nitrite (NEGATIVE) Urine Bilirubin (NEGATIVE) Urine Urobilinogen (0.2) EU/dL Ur Leukocyte Esterase (NEGATIVE) Urine RBC (NOT SEEN) /HPF Urine WBC (NOT SEEN) /HPF Ur Squamous Epith Cells (NOT SEEN) /HPF Amorphous Sediment Urine Bacteria (NOT SEEN) /HPF Urine Mucus (NOT SEEN) /LPF SARS-CoV-2 RNA (SHARA) (NEGATIVE) 01/29/21 01/29/21 Range/Units 16:25 16:33 WBC (4.0-10.0) x10^3/uL RBC (4.00-5.50) x10^6/uL Hgb (12.0-16.0) g/dL Hct (33.0-47.0) % MCV (78.0-93.0) fL MCH (26.0-32.0) pg MCHC (32.0-36.0) g/dL RDW Coeff of Gamaliel (10.0-15.0) % Plt Count (130-400) x10^3/uL Neut % (Auto) (50.0-80.0) % Lymph % (Auto) (25.0-50.0) % [place] % (Auto) (2.0-11.0) % Eos % (Auto) (0.0-4.0) % Baso % (Auto) (0.2-1.2) % PT (9.9-12.5) SEC INR (2.0-3.5) APTT (25.6-32.8) SEC Sodium (136-145) mmol/L Potassium (3.5-5.1) mmol/L Chloride (98-107) mmol/L Carbon Dioxide (21-32) mmol/L Anion Gap (5-15) mmol/L BUN (7-18) mg/dL Creatinine (0.55-1.02) mg/dL Est Cr Clr Drug Dosing Estimated GFR (MDRD) Glucose (70-99) mg/dL Lactic Acid 2.7 H* (0.4-2.0) mmol/L Calcium (8.5-10.1) mg/dL Corrected Calcium (8.5-10.1) mg/dL Magnesium (1.8-2.4) mg/dL Total Bilirubin (0.2-1.0) mg/dL AST (15-37) U/L ALT (14-59) U/L Alkaline Phosphatase (46-116) U/L Troponin I High Sens (<=51) ng/L Total Protein (6.4-8.2) g/dL Albumin (3.4-5.0) g/dL Globulin Albumin/Globulin Ratio Urine Color (YELLOW) Urine Appearance (CLEAR) Urine pH (5.0-8.0) Ur Specific [place] Urine Protein (NEGATIVE) mg/dL Urine Glucose (UA) (NEGATIVE) mg/dL Urine Ketones (NEGATIVE) mg/dL Urine Occult Blood (NEGATIVE) Urine Nitrite (NEGATIVE) Urine Bilirubin (NEGATIVE) Urine Urobilinogen (0.2) EU/dL Ur Leukocyte Esterase (NEGATIVE) Urine RBC (NOT SEEN) /HPF Urine WBC (NOT SEEN) /HPF Ur Squamous Epith Cells (NOT SEEN) /HPF Amorphous Sediment Urine Bacteria (NOT SEEN) /HPF Urine Mucus (NOT SEEN) /LPF SARS-CoV-2 RNA (SHARA) Negative (NEGATIVE) Meds: Medications Generic Name Dose Route Start Last Admin Trade Name Freq PRN Reason Stop Dose Admin Acetaminophen 650 mg 01/29/21 22:48 Acetaminophen 325 Mg Tab PO Q4H PRN Pain Aspirin 81 mg 01/30/21 08:00 Aspirin 81 Mg Tab.Ec PO DAILY [facility] Atorvastatin Calcium 20 mg 01/30/21 20:00 Atorvastatin 10 Mg Tab PO BEDTIME [facility] Bisacodyl 5 mg 01/29/21 22:48 Bisacodyl 5 Mg Tab PO DAILY PRN Constipation Donepezil HCl 10 mg 01/30/21 08:00 Donepezil 10 Mg Tab PO DAILY ZACKARY Flumazenil 0.2 mg 01/29/21 19:35 Flumazenil 0.1 Mg/Ml 5 Ml Mdv IVPUSH ASDIRECTED PRN Respiratory Depression Sodium Chloride 1,000 mls @ 150 mls/hr 01/29/21 20:15 01/29/21 20:43 Normal Saline IV 150 mls/hr ASDIRECTED ZACKARY Administration Metoprolol Tartrate 37.5 mg 01/30/21 08:00 Metoprolol Tartrate 25 Mg Tab PO BID ZACKARY Non-Formulary Medication 1,000 units 01/30/21 08:00 Cholecalciferol (Vitamin D3) [Vitamin D3] PO DAILY ZACKARY Non-Formulary Medication 500 mcg 01/30/21 08:00 Cyanocobalamin (Vitamin B-12) [B-12 Dots] PO DAILY ZACKARY Non-Formulary Medication 1 puff 01/30/21 08:00 Fluticasone/Salmeterol INH BID ZACKARY Non-Formulary Medication 400 mg 01/30/21 08:00 Magnesium Oxide [Magnesium Oxide] PO DAILY ZACKARY Non-Formulary Medication 1 tab 01/30/21 08:00 Multivitamin With Minerals [Multiple Vitamin] PO DAILY ZACKARY Non-Formulary Medication each 01/30/21 08:00 Non-Formulary Medication 1 Each PO BID ZACKARY Non-Formulary Medication each 01/29/21 22:48 Non-Formulary Medication 1 Each INH Q4H PRN Shortness of Breath Non-Formulary Medication 40 mg 01/30/21 08:00 Omeprazole Magnesium [Prilosec Otc] PO DAILY ZACKARY Non-Formulary Medication 1 puff 01/30/21 08:00 Umeclidinium [place] [Incruse Ellipta] PO DAILY [facility] Sodium Chloride 10 ml 01/29/21 16:06 Sodium Chloride 0.9% 10 Ml Syringe FLUSH ASDIRECTED PRN Keep Vein Open Discontinued Medications Generic Name Dose Route Start Last Admin Trade Name Freq PRN Reason Stop Dose Admin Ceftriaxone Sodium 2 gm 01/29/21 17:21 01/29/21 17:30 Ceftriaxone 2 Gm Vial IVPUSH 01/29/21 17:22 2 gm STAT ONE Administration Lorazepam 0.5 mg 01/29/21 19:35 01/29/21 20:08 Lorazepam 2 Mg/Ml Sdv IVPUSH 01/29/21 19:36 Not Given STAT ONE Departure - Departure Time of Disposition: 18:30 Disposition: Admitted As Inpatient 64 Clinical Impression: Dehydration, UTI (urinary tract infection) - Discharge Information Sepsis Event Note (ED) - Evaluation Sepsis Screening Result: No Definite Risk - Focused Exam Vital Signs: Vital Signs Temp Pulse Resp BP Pulse Ox 01/29/21 15:55 37.1 C 121 H 18 177/80 H 98 - Problem List Review Problem List Initiated/Reviewed/Updated: Yes - My Orders Last 24 Hours: My Active Orders 01/29/21 16:06 Sodium Chloride 0.9% [Saline Flush] 10 ml FLUSH ASDIRECTED PRN 01/29/21 16:07 Blood Culture x2 Reflex Set [OM.PC] Stat Peripheral IV Insertion Adult [OM.PC] Routine 01/29/21 16:08 EKG Documentation Completion [RC] STAT 01/29/21 16:25 CULTURE BLOOD [BC] Stat 01/29/21 16:32 CULTURE BLOOD [BC] Stat - Assessment/Plan Last 24 Hours: My Active Orders 01/29/21 16:06 Sodium Chloride 0.9% [Saline Flush] 10 ml FLUSH ASDIRECTED PRN 01/29/21 16:07 Blood Culture x2 Reflex Set [OM.PC] Stat Peripheral IV Insertion Adult [OM.PC] Routine 01/29/21 16:08 EKG Documentation Completion [RC] STAT 01/29/21 16:25 CULTURE BLOOD [BC] Stat 01/29/21 16:32 CULTURE BLOOD [BC] Stat Plan: Discussed case with Dr. Thibodeaux. She feels that the patient should be admitted observation. CT brain without contrast was obtained which was negative for acute pathology. Chest x-ray was negative for acute pathology as well. Pt. was admitted observation. She is a code 2, DNR/DNI. Pt. was beginning to become more alert after some fluids and IV rocephin. She did have bacteria and WBCs in her urine (negative for leukocyte esterase and nitrates). She was on quite a low dose of oral antibiotics for her last UTI. Certainly she could have have a CVA or TIA but the last known well is unknown. Subsequently she is not a candidate for further treatment/intervention. Discussed findings with family. They are in agree with plan of care. Will repeat lactic acid. IV NS at 150ml./hr for one liter, then 75ml/hr. Swallow study ordered. She will be kept NPO until we know she can swallow without difficulty. senior living is aware of pt. admission.
[2021-01-29 17:03] LABS: CHLORIDE,CL 104 mmol/L (98-107); SODIUM,NA 141 mmol/L (136-145)
[2021-01-29 17:04] LABS: ANION GAP 15.2 mmol/L (5-15)
--- NOTE | 2021-01-29 17:08 | CR ---
[id number] RAD/RAD Chest PA or AP 1V EXAM: SINGLE VIEW CHEST. INDICATION: CHANGE IN MENTAL STATUS COMPARISON: CORRELATION IS MADE WITH OCTOBER 23, 2020 FINDINGS: The lungs are clear The cardiac silhouette is stable Scoliosis is seen There are surgical changes in the left axillary region IMPRESSION: NO PNEUMONIA OR EDEMA Davey Beard MD 01/29/21 [id number] Thank you for allowing us to participate in the care of your patient.
[2021-01-29] MEDS ORDERED: cefTRIAXone 2 GM Vial IVPUSH ONE (17:21)
[2021-01-29] MEDS ORDERED: Flumazenil 0.1 MG/ML 5 ML MDV IVPUSH PRN (19:35)
[2021-01-29] MEDS ORDERED: LORazepam 2 MG/ML SDV IVPUSH ONE (19:35)
--- NOTE | 2021-01-29 20:32 | CT ---
[id number] CT/CT Head WO IV EXAM: CT Head WO IV CLINICAL DATA: CHANGE IN MENTAL STATUS COMPARISON: CORRELATION IS MADE WITH OCTOBER 23, 2020 FINDINGS: There is no mass or mass effect. There is no hemorrhage or hydrocephalus. There are no extra-axial fluid collections. There are no sites of abnormal attenuation. IMPRESSION: NO PLAIN CT EVIDENCE OF ACUTE INTRACRANIAL PROCESS. Davey Beard MD 01/29/212030 Thank you for allowing us to participate in the care of your patient.
[2021-01-29] MEDS: Sodium Chloride 0.9% 1,000 ML IV SCH (20:43)
[2021-01-29] MEDS ORDERED: Bisacodyl 5 MG Tab PO PRN (22:48)
[2021-01-29] MEDS ORDERED: Acetaminophen 325 MG Tab PO PRN (22:48)
[2021-01-30] MEDS: Sodium Chloride 0.9% 1,000 ML IV SCH ×2 (03:38→10:15)
[2021-01-30] MEDS ORDERED: Cyanocobalamin (Vitamin B12) 250 MCG Tab PO SCH (08:00)
[2021-01-30] MEDS ORDERED: Donepezil 10 MG Tab PO SCH (08:00)
[2021-01-30] MEDS ORDERED: Metoprolol Tartrate 25 MG Tab PO SCH (08:00)
[2021-01-30] MEDS ORDERED: Magnesium Oxide 400 MG Tab PO SCH (08:00)
[2021-01-30] MEDS ORDERED: Multivitamins with Iron/Calcium/Folic Acid/Minerals Tab PO SCH (08:00)
[2021-01-30] MEDS ORDERED: Omeprazole 20 MG Cap.CR PO SCH (08:00)
[2021-01-30] MEDS ORDERED: FLUTICASONE INH SCH (08:00)
[2021-01-30] MEDS ORDERED: Aspirin 81 MG Tab.EC PO SCH (08:00)
[2021-01-30] MEDS ORDERED: Cholecalciferol (Vitamin D3) 25 MCG Tab PO SCH (08:00)
[2021-01-30] MEDS ORDERED: SALMETEROL INH SCH (08:00)
[2021-01-30 08:30] LABS: ANION GAP 12.7 mmol/L (5-15)
[2021-01-30] MEDS ORDERED: Albuterol HFA 18 Gm Inhaler INH PRN (10:36)
[2021-01-30] MEDS ORDERED: Albuterol 0.083% 2.5 MG/3 ML Neb Soln NEB PRN (10:36)
[2021-01-30] MEDS ORDERED: Budesonide 0.5 MG/2 ML Neb Susp NEB SCH (11:00)
[2021-01-30] MEDS ORDERED: Arformoterol 15 MCG/2 ML Neb Soln NEB SCH (11:00)
[2021-01-30] MEDS: Ipratropium 0.02% 0.5 MG/2.5 ML Neb Soln NEB SCH ×2 (11:43→13:46)
[2021-01-30 12:07] VITALS: BP 110/88; PULSE 85
--- NOTE | 2021-01-30 12:17 | PCM.PN ---
- General Info Date of Service: 01/30/21 Admission Dx/Problem (Free Text): 1)Weakness 2)Dehydration Subjective Update: Brisa Mendenhall is an 85 y/o female who was seen in the ER last night by Zeferino Levy after she had some increased confusion. She was noted in ER to have an elevated lactic acid and also labs reflected dehydration. IV fluids were started in the ER and patient was more alert. Her Headt CT was negative. Bedside swallow study was ordered to be done and nursing reports it as normal. Patient is much more alert and talkative and anxious to get out of the hospital. She was given Ceftriaxone 2gm IVP to cover for infection/sepsis/UTI. - Review of Systems General: Reports: No Symptoms HEENT: Reports: No Symptoms Pulmonary: Reports: No Symptoms Cardiovascular: Reports: No Symptoms Gastrointestinal: Reports: No Symptoms Genitourinary: Reports: No Symptoms Musculoskeletal: Reports: No Symptoms Skin: Reports: No Symptoms Neurological: Reports: No Symptoms, Other (mush more alert and talkative) Psychiatric: Reports: Confusion (resolved) - Patient Data Vitals - Most Recent: Last Vital Signs Temp 37.1 C 01/30/21 10:00 Pulse 85 01/30/21 10:00 Resp 16 01/30/21 05:22 BP 110/88 01/30/21 10:00 Pulse Ox 99 01/30/21 10:00 Weight - Most Recent: 45.541 kg Lab Results Last 24 Hours: Laboratory Results - last 24 hr 01/29/21 01/29/21 01/29/21 Range/Units 16:12 16:25 16:25 WBC 10.3 H (4.0-10.0) x10^3/uL RBC 3.97 L (4.00-5.50) x10^6/uL Hgb 11.5 L D (12.0-16.0) g/dL Hct 34.9 (33.0-47.0) % MCV 87.9 (78.0-93.0) fL MCH 29.0 (26.0-32.0) pg MCHC 33.0 (32.0-36.0) g/dL RDW Coeff of Gamaliel 14.1 (10.0-15.0) % Plt Count 172 (130-400) x10^3/uL Neut % (Auto) 76.4 (50.0-80.0) % Lymph % (Auto) 14.5 L (25.0-50.0) % [place] % (Auto) 8.7 (2.0-11.0) % Eos % (Auto) 0.3 (0.0-4.0) % Baso % (Auto) 0.1 L (0.2-1.2) % PT 11.5 (9.9-12.5) SEC INR 1.0 L (2.0-3.5) APTT (25.6-32.8) SEC Sodium (136-145) mmol/L Potassium (3.5-5.1) mmol/L Chloride (98-107) mmol/L Carbon Dioxide (21-32) mmol/L Anion Gap (5-15) mmol/L BUN (7-18) mg/dL Creatinine (0.55-1.02) mg/dL Est Cr Clr Drug Dosing Estimated GFR (MDRD) Glucose (70-99) mg/dL Lactic Acid (0.4-2.0) mmol/L Calcium (8.5-10.1) mg/dL Corrected Calcium (8.5-10.1) mg/dL Magnesium (1.8-2.4) mg/dL Total Bilirubin (0.2-1.0) mg/dL AST (15-37) U/L ALT (14-59) U/L Alkaline Phosphatase (46-116) U/L Troponin I High Sens (<=51) ng/L Total Protein (6.4-8.2) g/dL Albumin (3.4-5.0) g/dL Globulin Albumin/Globulin Ratio Urine Color Yellow (YELLOW) Urine Appearance Clear (CLEAR) Urine pH 6.0 (5.0-8.0) Ur Specific [place] 1.020 Urine Protein 30 H (NEGATIVE) mg/dL Urine Glucose (UA) Negative (NEGATIVE) mg/dL Urine Ketones Trace H (NEGATIVE) mg/dL Urine Occult Blood Negative (NEGATIVE) Urine Nitrite Negative (NEGATIVE) Urine Bilirubin Negative (NEGATIVE) Urine Urobilinogen 0.2 (0.2) EU/dL Ur Leukocyte Esterase Negative (NEGATIVE) Urine RBC 0-5 (NOT SEEN) /HPF Urine WBC 10-20 H (NOT SEEN) /HPF Ur Squamous Epith Cells Rare (NOT SEEN) /HPF Amorphous Sediment Few Urine Bacteria Few H (NOT SEEN) /HPF Urine Mucus Few H (NOT SEEN) /LPF SARS-CoV-2 RNA (SHARA) (NEGATIVE) 01/29/21 01/29/21 01/29/21 Range/Units 16:25 16:25 16:25 WBC (4.0-10.0) x10^3/uL RBC (4.00-5.50) x10^6/uL Hgb (12.0-16.0) g/dL Hct (33.0-47.0) % MCV (78.0-93.0) fL MCH (26.0-32.0) pg MCHC (32.0-36.0) g/dL RDW Coeff of Gamaliel (10.0-15.0) % Plt Count (130-400) x10^3/uL Neut % (Auto) (50.0-80.0) % Lymph % (Auto) (25.0-50.0) % [place] % (Auto) (2.0-11.0) % Eos % (Auto) (0.0-4.0) % Baso % (Auto) (0.2-1.2) % PT (9.9-12.5) SEC INR (2.0-3.5) APTT 23.2 L (25.6-32.8) SEC Sodium 141 (136-145) mmol/L Potassium 4.2 (3.5-5.1) mmol/L Chloride 104 (98-107) mmol/L Carbon Dioxide 26 (21-32) mmol/L Anion Gap 15.2 H (5-15) mmol/L BUN 26 H (7-18) mg/dL Creatinine 1.7 H (0.55-1.02) mg/dL Est Cr Clr Drug Dosing TNP Estimated GFR (MDRD) 28 Glucose 143 H (70-99) mg/dL Lactic Acid (0.4-2.0) mmol/L Calcium 9.0 (8.5-10.1) mg/dL Corrected Calcium 9.2 D (8.5-10.1) mg/dL Magnesium 2.0 (1.8-2.4) mg/dL Total Bilirubin 0.5 (0.2-1.0) mg/dL AST 25 (15-37) U/L ALT 24 (14-59) U/L Alkaline Phosphatase 80 (46-116) U/L Troponin I High Sens 10 (<=51) ng/L Total Protein 7.5 (6.4-8.2) g/dL Albumin 3.7 (3.4-5.0) g/dL Globulin 3.8 Albumin/Globulin Ratio 0.97 Urine Color (YELLOW) Urine Appearance (CLEAR) Urine pH (5.0-8.0) Ur Specific [place] Urine Protein (NEGATIVE) mg/dL Urine Glucose (UA) (NEGATIVE) mg/dL Urine Ketones (NEGATIVE) mg/dL Urine Occult Blood (NEGATIVE) Urine Nitrite (NEGATIVE) Urine Bilirubin (NEGATIVE) Urine Urobilinogen (0.2) EU/dL Ur Leukocyte Esterase (NEGATIVE) Urine RBC (NOT SEEN) /HPF Urine WBC (NOT SEEN) /HPF Ur Squamous Epith Cells (NOT SEEN) /HPF Amorphous Sediment Urine Bacteria (NOT SEEN) /HPF Urine Mucus (NOT SEEN) /LPF SARS-CoV-2 RNA (SHARA) (NEGATIVE) 01/29/21 01/29/21 01/29/21 Range/Units 16:25 16:33 20:30 WBC (4.0-10.0) x10^3/uL RBC (4.00-5.50) x10^6/uL Hgb (12.0-16.0) g/dL Hct (33.0-47.0) % MCV (78.0-93.0) fL MCH (26.0-32.0) pg MCHC (32.0-36.0) g/dL RDW Coeff of Gamaliel (10.0-15.0) % Plt Count (130-400) x10^3/uL Neut % (Auto) (50.0-80.0) % Lymph % (Auto) (25.0-50.0) % [place] % (Auto) (2.0-11.0) % Eos % (Auto) (0.0-4.0) % Baso % (Auto) (0.2-1.2) % PT (9.9-12.5) SEC INR (2.0-3.5) APTT (25.6-32.8) SEC Sodium (136-145) mmol/L Potassium (3.5-5.1) mmol/L Chloride (98-107) mmol/L Carbon Dioxide (21-32) mmol/L Anion Gap (5-15) mmol/L BUN (7-18) mg/dL Creatinine (0.55-1.02) mg/dL Est Cr Clr Drug Dosing Estimated GFR (MDRD) Glucose (70-99) mg/dL Lactic Acid 2.7 H* 1.1 (0.4-2.0) mmol/L Calcium (8.5-10.1) mg/dL Corrected Calcium (8.5-10.1) mg/dL Magnesium (1.8-2.4) mg/dL Total Bilirubin (0.2-1.0) mg/dL AST (15-37) U/L ALT (14-59) U/L Alkaline Phosphatase (46-116) U/L Troponin I High Sens (<=51) ng/L Total Protein (6.4-8.2) g/dL Albumin (3.4-5.0) g/dL Globulin Albumin/Globulin Ratio Urine Color (YELLOW) Urine Appearance (CLEAR) Urine pH (5.0-8.0) Ur Specific [place] Urine Protein (NEGATIVE) mg/dL Urine Glucose (UA) (NEGATIVE) mg/dL Urine Ketones (NEGATIVE) mg/dL Urine Occult Blood (NEGATIVE) Urine Nitrite (NEGATIVE) Urine Bilirubin (NEGATIVE) Urine Urobilinogen (0.2) EU/dL Ur Leukocyte Esterase (NEGATIVE) Urine RBC (NOT SEEN) /HPF Urine WBC (NOT SEEN) /HPF Ur Squamous Epith Cells (NOT SEEN) /HPF Amorphous Sediment Urine Bacteria (NOT SEEN) /HPF Urine Mucus (NOT SEEN) /LPF SARS-CoV-2 RNA (SHARA) Negative (NEGATIVE) 01/30/21 01/30/21 01/30/21 Range/Units 08:00 08:00 08:00 WBC 8.8 (4.0-10.0) x10^3/uL RBC 3.23 L (4.00-5.50) x10^6/uL Hgb 9.4 L D (12.0-16.0) g/dL Hct 29.1 L (33.0-47.0) % MCV 90.1 (78.0-93.0) fL MCH 29.1 (26.0-32.0) pg MCHC 32.3 (32.0-36.0) g/dL RDW Coeff of Gamaliel 14.1 (10.0-15.0) % Plt Count 138 (130-400) x10^3/uL Neut % (Auto) 74.5 (50.0-80.0) % Lymph % (Auto) 16.5 L (25.0-50.0) % [place] % (Auto) 8.6 (2.0-11.0) % Eos % (Auto) 0.2 (0.0-4.0) % Baso % (Auto) 0.2 (0.2-1.2) % PT (9.9-12.5) SEC INR (2.0-3.5) APTT (25.6-32.8) SEC Sodium 143 (136-145) mmol/L Potassium 3.7 (3.5-5.1) mmol/L Chloride 109 H (98-107) mmol/L Carbon Dioxide 25 (21-32) mmol/L Anion Gap 12.7 (5-15) mmol/L BUN 20 H (7-18) mg/dL Creatinine 1.4 H (0.55-1.02) mg/dL Est Cr Clr Drug Dosing 20.35 Estimated GFR (MDRD) 36 Glucose 97 (70-99) mg/dL Lactic Acid 0.6 (0.4-2.0) mmol/L Calcium 7.7 L (8.5-10.1) mg/dL Corrected Calcium 8.7 (8.5-10.1) mg/dL Magnesium (1.8-2.4) mg/dL Total Bilirubin 0.4 (0.2-1.0) mg/dL AST 22 (15-37) U/L ALT 19 (14-59) U/L Alkaline Phosphatase 61 (46-116) U/L Troponin I High Sens (<=51) ng/L Total Protein 5.9 L (6.4-8.2) g/dL Albumin 2.8 L (3.4-5.0) g/dL Globulin 3.1 Albumin/Globulin Ratio 0.90 Urine Color (YELLOW) Urine Appearance (CLEAR) Urine pH (5.0-8.0) Ur Specific [place] Urine Protein (NEGATIVE) mg/dL Urine Glucose (UA) (NEGATIVE) mg/dL Urine Ketones (NEGATIVE) mg/dL Urine Occult Blood (NEGATIVE) Urine Nitrite (NEGATIVE) Urine Bilirubin (NEGATIVE) Urine Urobilinogen (0.2) EU/dL Ur Leukocyte Esterase (NEGATIVE) Urine RBC (NOT SEEN) /HPF Urine WBC (NOT SEEN) /HPF Ur Squamous Epith Cells (NOT SEEN) /HPF Amorphous Sediment Urine Bacteria (NOT SEEN) /HPF Urine Mucus (NOT SEEN) /LPF SARS-CoV-2 RNA (SHARA) (NEGATIVE) Med Orders - Current: Current Medications Acetaminophen (Acetaminophen 325 Mg Tab) 650 mg PO Q4H PRN PRN Reason: Pain Albuterol (Albuterol Hfa 18 Gm Inhaler) 0 gm INH Q4H PRN PRN Reason: Shortness of Breath Albuterol (Albuterol 0.083% 2.5 Mg/3 Ml Neb Soln) 2.5 mg NEB Q4H PRN PRN Reason: Shortness of Breath Arformoterol Tartrate (Arformoterol 15 Mcg/2 Ml Neb Soln) 15 mcg NEB BIDRT [facility] Last Admin: 01/30/21 11:43 Dose: 15 mcg Documented by: Aspirin (Aspirin 81 Mg Tab.Ec) 81 mg PO DAILY [facility] Last Admin: 01/30/21 08:43 Dose: 81 mg Documented by: Atorvastatin Calcium (Atorvastatin 10 Mg Tab) 20 mg PO BEDTIME [facility] Bisacodyl (Bisacodyl 5 Mg Tab) 5 mg PO DAILY PRN PRN Reason: Constipation Budesonide (Budesonide 0.5 Mg/2 Ml Neb Susp) 0.5 mg NEB BIDRT [facility] Last Admin: 01/30/21 11:44 Dose: 0.5 mg Documented by: Cholecalciferol (Cholecalciferol (Vitamin D3) 25 Mcg Tab) 25 mcg PO DAILY [facility] Last Admin: 01/30/21 08:43 Dose: 25 mcg Documented by: Cyanocobalamin (Cyanocobalamin (Vitamin B12) 250 Mcg Tab) 500 mcg PO DAILY [facility] Last Admin: 01/30/21 08:38 Dose: 500 mcg Documented by: Donepezil HCl (Donepezil 10 Mg Tab) 10 mg PO DAILY [facility] Last Admin: 01/30/21 08:43 Dose: 10 mg Documented by: Sodium Chloride (Normal Saline) 1,000 mls @ 150 mls/hr IV ASDIRECTED [facility] Last Admin: 01/30/21 10:15 Dose: 150 mls/hr Documented by: Ipratropium [place] (Ipratropium 0.02% 0.5 Mg/2.5 Ml Neb Soln) 0.5 mg NEB Q6HRRT [facility] Last Admin: 01/30/21 11:43 Dose: 0.5 mg Documented by: Magnesium Oxide (Magnesium Oxide 400 Mg Tab) 400 mg PO DAILY [facility] Last Admin: 01/30/21 08:43 Dose: 400 mg Documented by: Metoprolol Tartrate (Metoprolol Tartrate 25 Mg Tab) 37.5 mg PO BID [facility] Last Admin: 01/30/21 08:38 Dose: 37.5 mg Documented by: Multivitamins/Minerals (Multivitamins With Iron/Calcium/Folic Acid/Minerals Tab) 1 tab PO DAILY [facility] Last Admin: 01/30/21 08:43 Dose: 1 tab Documented by: Fluticasone/Salmeterol 100/50 ( Own Supply) 1 puff INH BID [facility] Last Admin: 01/30/21 11:08 Dose: Not Given Documented by: Maxi-Vision/Aerds ( (Own Supply)) 1 each PO BID [facility] Umeclidinium [place] [Incruse Ellipta] 62.5 Mcg 1 puff PO DAILY [facility] Last Admin: 01/30/21 11:08 Dose: Not Given Documented by: Omeprazole (Omeprazole 20 Mg Cap.Cr) 40 mg PO DAILY [facility] Last Admin: 01/30/21 08:38 Dose: 40 mg Documented by: Sodium Chloride (Sodium Chloride 0.9% 10 Ml Syringe) 10 ml FLUSH ASDIRECTED PRN PRN Reason: Keep Vein Open Discontinued Medications Ceftriaxone Sodium (Ceftriaxone 2 Gm Vial) 2 gm IVPUSH STAT ONE Stop: 01/29/21 17:22 Last Admin: 01/29/21 17:30 Dose: 2 gm Documented by: Lorazepam (Lorazepam 2 Mg/Ml Sdv) 0.5 mg IVPUSH STAT ONE Stop: 01/29/21 19:36 Last Admin: 01/29/21 20:08 Dose: Not Given Documented by: - Exam General: Alert, Oriented, No Acute Distress (Elderly female) HEENT: Pupils Equal, Pupils Reactive Neck: Supple Lungs: Normal Respiratory Effort Cardiovascular: Regular Rate, Regular Rhythm GI/Abdominal Exam: Normal Bowel Sounds, Soft, Non-Tender (Female) Exam: Deferred Back Exam: Normal Inspection Extremities: Normal Inspection, Normal Range of Motion, Normal Capillary Refill Skin: Warm, Dry, Intact Neurological: No New Focal Deficit - Patient Data Lab Results Last 24 hrs: Laboratory Results - last 24 hr 01/29/21 01/29/21 01/29/21 Range/Units 16:12 16:25 16:25 WBC 10.3 H (4.0-10.0) x10^3/uL RBC 3.97 L (4.00-5.50) x10^6/uL Hgb 11.5 L D (12.0-16.0) g/dL Hct 34.9 (33.0-47.0) % MCV 87.9 (78.0-93.0) fL MCH 29.0 (26.0-32.0) pg MCHC 33.0 (32.0-36.0) g/dL RDW Coeff of Gamaliel 14.1 (10.0-15.0) % Plt Count 172 (130-400) x10^3/uL Neut % (Auto) 76.4 (50.0-80.0) % Lymph % (Auto) 14.5 L (25.0-50.0) % [place] % (Auto) 8.7 (2.0-11.0) % Eos % (Auto) 0.3 (0.0-4.0) % Baso % (Auto) 0.1 L (0.2-1.2) % PT 11.5 (9.9-12.5) SEC INR 1.0 L (2.0-3.5) APTT (25.6-32.8) SEC Sodium (136-145) mmol/L Potassium (3.5-5.1) mmol/L Chloride (98-107) mmol/L Carbon Dioxide (21-32) mmol/L Anion Gap (5-15) mmol/L BUN (7-18) mg/dL Creatinine (0.55-1.02) mg/dL Est Cr Clr Drug Dosing Estimated GFR (MDRD) Glucose (70-99) mg/dL Lactic Acid (0.4-2.0) mmol/L Calcium (8.5-10.1) mg/dL Corrected Calcium (8.5-10.1) mg/dL Magnesium (1.8-2.4) mg/dL Total Bilirubin (0.2-1.0) mg/dL AST (15-37) U/L ALT (14-59) U/L Alkaline Phosphatase (46-116) U/L Troponin I High Sens (<=51) ng/L Total Protein (6.4-8.2) g/dL Albumin (3.4-5.0) g/dL Globulin Albumin/Globulin Ratio Urine Color Yellow (YELLOW) Urine Appearance Clear (CLEAR) Urine pH 6.0 (5.0-8.0) Ur Specific [place] 1.020 Urine Protein 30 H (NEGATIVE) mg/dL Urine Glucose (UA) Negative (NEGATIVE) mg/dL Urine Ketones Trace H (NEGATIVE) mg/dL Urine Occult Blood Negative (NEGATIVE) Urine Nitrite Negative (NEGATIVE) Urine Bilirubin Negative (NEGATIVE) Urine Urobilinogen 0.2 (0.2) EU/dL Ur Leukocyte Esterase Negative (NEGATIVE) Urine RBC 0-5 (NOT SEEN) /HPF Urine WBC 10-20 H (NOT SEEN) /HPF Ur Squamous Epith Cells Rare (NOT SEEN) /HPF Amorphous Sediment Few Urine Bacteria Few H (NOT SEEN) /HPF Urine Mucus Few H (NOT SEEN) /LPF SARS-CoV-2 RNA (SHARA) (NEGATIVE) 01/29/21 01/29/21 01/29/21 Range/Units 16:25 16:25 16:25 WBC (4.0-10.0) x10^3/uL RBC (4.00-5.50) x10^6/uL Hgb (12.0-16.0) g/dL Hct (33.0-47.0) % MCV (78.0-93.0) fL MCH (26.0-32.0) pg MCHC (32.0-36.0) g/dL RDW Coeff of Gamaliel (10.0-15.0) % Plt Count (130-400) x10^3/uL Neut % (Auto) (50.0-80.0) % Lymph % (Auto) (25.0-50.0) % [place] % (Auto) (2.0-11.0) % Eos % (Auto) (0.0-4.0) % Baso % (Auto) (0.2-1.2) % PT (9.9-12.5) SEC INR (2.0-3.5) APTT 23.2 L (25.6-32.8) SEC Sodium 141 (136-145) mmol/L Potassium 4.2 (3.5-5.1) mmol/L Chloride 104 (98-107) mmol/L Carbon Dioxide 26 (21-32) mmol/L Anion Gap 15.2 H (5-15) mmol/L BUN 26 H (7-18) mg/dL Creatinine 1.7 H (0.55-1.02) mg/dL Est Cr Clr Drug Dosing TNP Estimated GFR (MDRD) 28 Glucose 143 H (70-99) mg/dL Lactic Acid (0.4-2.0) mmol/L Calcium 9.0 (8.5-10.1) mg/dL Corrected Calcium 9.2 D (8.5-10.1) mg/dL Magnesium 2.0 (1.8-2.4) mg/dL Total Bilirubin 0.5 (0.2-1.0) mg/dL AST 25 (15-37) U/L ALT 24 (14-59) U/L Alkaline Phosphatase 80 (46-116) U/L Troponin I High Sens 10 (<=51) ng/L Total Protein 7.5 (6.4-8.2) g/dL Albumin 3.7 (3.4-5.0) g/dL Globulin 3.8 Albumin/Globulin Ratio 0.97 Urine Color (YELLOW) Urine Appearance (CLEAR) Urine pH (5.0-8.0) Ur Specific [place] Urine Protein (NEGATIVE) mg/dL Urine Glucose (UA) (NEGATIVE) mg/dL Urine Ketones (NEGATIVE) mg/dL Urine Occult Blood (NEGATIVE) Urine Nitrite (NEGATIVE) Urine Bilirubin (NEGATIVE) Urine Urobilinogen (0.2) EU/dL Ur Leukocyte Esterase (NEGATIVE) Urine RBC (NOT SEEN) /HPF Urine WBC (NOT SEEN) /HPF Ur Squamous Epith Cells (NOT SEEN) /HPF Amorphous Sediment Urine Bacteria (NOT SEEN) /HPF Urine Mucus (NOT SEEN) /LPF SARS-CoV-2 RNA (SHARA) (NEGATIVE) 01/29/21 01/29/21 01/29/21 Range/Units 16:25 16:33 20:30 WBC (4.0-10.0) x10^3/uL RBC (4.00-5.50) x10^6/uL Hgb (12.0-16.0) g/dL Hct (33.0-47.0) % MCV (78.0-93.0) fL MCH (26.0-32.0) pg MCHC (32.0-36.0) g/dL RDW Coeff of Gamaliel (10.0-15.0) % Plt Count (130-400) x10^3/uL Neut % (Auto) (50.0-80.0) % Lymph % (Auto) (25.0-50.0) % [place] % (Auto) (2.0-11.0) % Eos % (Auto) (0.0-4.0) % Baso % (Auto) (0.2-1.2) % PT (9.9-12.5) SEC INR (2.0-3.5) APTT (25.6-32.8) SEC Sodium (136-145) mmol/L Potassium (3.5-5.1) mmol/L Chloride (98-107) mmol/L Carbon Dioxide (21-32) mmol/L Anion Gap (5-15) mmol/L BUN (7-18) mg/dL Creatinine (0.55-1.02) mg/dL Est Cr Clr Drug Dosing Estimated GFR (MDRD) Glucose (70-99) mg/dL Lactic Acid 2.7 H* 1.1 (0.4-2.0) mmol/L Calcium (8.5-10.1) mg/dL Corrected Calcium (8.5-10.1) mg/dL Magnesium (1.8-2.4) mg/dL Total Bilirubin (0.2-1.0) mg/dL AST (15-37) U/L ALT (14-59) U/L Alkaline Phosphatase (46-116) U/L Troponin I High Sens (<=51) ng/L Total Protein (6.4-8.2) g/dL Albumin (3.4-5.0) g/dL Globulin Albumin/Globulin Ratio Urine Color (YELLOW) Urine Appearance (CLEAR) Urine pH (5.0-8.0) Ur Specific [place] Urine Protein (NEGATIVE) mg/dL Urine Glucose (UA) (NEGATIVE) mg/dL Urine Ketones (NEGATIVE) mg/dL Urine Occult Blood (NEGATIVE) Urine Nitrite (NEGATIVE) Urine Bilirubin (NEGATIVE) Urine Urobilinogen (0.2) EU/dL Ur Leukocyte Esterase (NEGATIVE) Urine RBC (NOT SEEN) /HPF Urine WBC (NOT SEEN) /HPF Ur Squamous Epith Cells (NOT SEEN) /HPF Amorphous Sediment Urine Bacteria (NOT SEEN) /HPF Urine Mucus (NOT SEEN) /LPF SARS-CoV-2 RNA (SHARA) Negative (NEGATIVE) 01/30/21 01/30/21 01/30/21 Range/Units 08:00 08:00 08:00 WBC 8.8 (4.0-10.0) x10^3/uL RBC 3.23 L (4.00-5.50) x10^6/uL Hgb 9.4 L D (12.0-16.0) g/dL Hct 29.1 L (33.0-47.0) % MCV 90.1 (78.0-93.0) fL MCH 29.1 (26.0-32.0) pg MCHC 32.3 (32.0-36.0) g/dL RDW Coeff of Gamaliel 14.1 (10.0-15.0) % Plt Count 138 (130-400) x10^3/uL Neut % (Auto) 74.5 (50.0-80.0) % Lymph % (Auto) 16.5 L (25.0-50.0) % [place] % (Auto) 8.6 (2.0-11.0) % Eos % (Auto) 0.2 (0.0-4.0) % Baso % (Auto) 0.2 (0.2-1.2) % PT (9.9-12.5) SEC INR (2.0-3.5) APTT (25.6-32.8) SEC Sodium 143 (136-145) mmol/L Potassium 3.7 (3.5-5.1) mmol/L Chloride 109 H (98-107) mmol/L Carbon Dioxide 25 (21-32) mmol/L Anion Gap 12.7 (5-15) mmol/L BUN 20 H (7-18) mg/dL Creatinine 1.4 H (0.55-1.02) mg/dL Est Cr Clr Drug Dosing 20.35 Estimated GFR (MDRD) 36 Glucose 97 (70-99) mg/dL Lactic Acid 0.6 (0.4-2.0) mmol/L Calcium 7.7 L (8.5-10.1) mg/dL Corrected Calcium 8.7 (8.5-10.1) mg/dL Magnesium (1.8-2.4) mg/dL Total Bilirubin 0.4 (0.2-1.0) mg/dL AST 22 (15-37) U/L ALT 19 (14-59) U/L Alkaline Phosphatase 61 (46-116) U/L Troponin I High Sens (<=51) ng/L Total Protein 5.9 L (6.4-8.2) g/dL Albumin 2.8 L (3.4-5.0) g/dL Globulin 3.1 Albumin/Globulin Ratio 0.90 Urine Color (YELLOW) Urine Appearance (CLEAR) Urine pH (5.0-8.0) Ur Specific [place] Urine Protein (NEGATIVE) mg/dL Urine Glucose (UA) (NEGATIVE) mg/dL Urine Ketones (NEGATIVE) mg/dL Urine Occult Blood (NEGATIVE) Urine Nitrite (NEGATIVE) Urine Bilirubin (NEGATIVE) Urine Urobilinogen (0.2) EU/dL Ur Leukocyte Esterase (NEGATIVE) Urine RBC (NOT SEEN) /HPF Urine WBC (NOT SEEN) /HPF Ur Squamous Epith Cells (NOT SEEN) /HPF Amorphous Sediment Urine Bacteria (NOT SEEN) /HPF Urine Mucus (NOT SEEN) /LPF SARS-CoV-2 RNA (SHARA) (NEGATIVE) Result Diagrams: 01/30/21 08:00 01/30/21 08:00 Sepsis Event Note - Evaluation Sepsis Screening Result: No Definite Risk - Focused Exam Vital Signs: Vital Signs Temp Temp Pulse Pulse Resp BP BP 01/30/21 10:00 37.1 C 85 110/88 01/30/21 08:38 86 144/56 H 01/30/21 05:22 38.1 C 100 16 151/57 H 01/30/21 04:55 37.7 C 88 16 155/61 H 01/30/21 02:30 37.6 C 100 18 144/84 H Pulse Ox 01/30/21 10:00 99 01/30/21 08:38 01/30/21 05:22 97 01/30/21 04:55 95 01/30/21 02:30 94 L - Problem List Review Problem List Initiated/Reviewed/Updated: Yes - Assessment Assessment:: 1)Weakness 2)Dehydration - Plan Plan:: -Labs reflected a dehydration presentation. 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 -Will discharge patient back to the long term. -Urine cx pending, she had Ceftriaxone 2gm IVPB so will wait for cx results prior to further abx -Bedside swallow study negative here on the floor, so can resume diet -Resume long term meds
--- NOTE | 2021-01-30 12:27 | PCM.DCSUM1 ---
Discharge Summary - Hospital Course HPI Initial Comments: Brisa Mendenhall is an 85 y/o female who was seen last evening in the ER trevon Anton PA-C after she had a period of decreased responsiveness at the [facility]. EMS transported her to the ER. She had been started on Keflex for 3 days for a UTI. In ER her head CT was negative and labs reflected dehydration and a cystitis. She was given IV fluids and was improving in the ER. She was kept overnight as an observation patient and IV fluids continued. She is much more alert this AM and labs improved. Diagnosis: Stroke: No - Discharge Data Discharge Date: 01/30/21 Discharge Disposition: DC/Tfer to SNF 03 Condition: Stable - Referral to Home Health Primary Care Physician: Aniya Laws MD - Patient Summary/Data Recommended Follow-up Testing/Procedures: -Resume [facility] meds and orders -FU with PCP in 1 week for hospital recheck Hospital Course: Serial labs were done in the AM and lactic acid and BUN/plug cutter had improved after IV fluids overnight. A bedside swallow study was done and negative. Her vitals remained stable. - Patient Instructions Diet: Usual Diet as Tolerated Activity: As Tolerated Notify Provider of: Fever, Nausea and/or Vomiting Other/Special Instructions: -Resume [facility] meds. -Follow up with PCP in 1 week for hospital recheck. -Urine cx results prior to further abx - Discharge Plan *PRESCRIPTION DRUG MONITORING PROGRAM REVIEWED*: Not Applicable *COPY OF PRESCRIPTION DRUG MONITORING REPORT IN PATIENT ADDY: Not Applicable Home Medications: Home Meds Fluticasone/Salmeterol [Advair 100-50] 1 puff INH BID 04/18/14 [History] Cholecalciferol (Vitamin D3) [Vitamin D3] 1,000 units PO DAILY 03/08/15 [Histo ry] Multivitamin with Minerals [Multiple Vitamin] 1 tab PO DAILY 03/08/15 [History] atorvaSTATin [Lipitor] 20 mg PO BEDTIME #30 tablet 03/17/15 [Rx] Acetaminophen [Tylenol] 650 mg PO Q4H PRN 07/19/16 [History] Umeclidinium Left Hand [Incruse Ellipta] 1 puff PO DAILY 07/19/16 [History] Cyanocobalamin (Vitamin B-12) [B-12 Dots] 500 mcg PO DAILY 03/07/17 [History] Magnesium Oxide 400 mg PO DAILY 08/18/18 [History] Omeprazole Magnesium [Prilosec Otc] 40 mg PO DAILY 12/09/18 [History] Metoprolol Tartrate [Lopressor] 37.5 mg PO BID #90 tablet 10/26/20 [Rx] Aspirin [Halfprin] 81 mg PO DAILY 01/29/21 [History] Donepezil HCl [Aricept] 10 mg PO DAILY 01/29/21 [History] Non-Formulary Medication [NF Drug] 1 cap PO BID 01/29/21 [History] Non-Formulary Medication [NF Drug] 2 puff INH Q4H PRN 01/29/21 [History] bisacodyL [Bisacodyl] 5 mg PO DAILY PRN 01/29/21 [History] Oxygen Therapy Mode: Room Air Forms: ED Department Discharge Referrals: Aniya Laws MD [Primary Care Provider] - - Discharge Summary/Plan Comment DC Time >30 min.: Yes - Patient Data Vitals - Most Recent: Last Vital Signs Temp 37.1 C 01/30/21 10:00 Pulse 85 01/30/21 10:00 Resp 16 01/30/21 05:22 BP 110/88 01/30/21 10:00 Pulse Ox 99 01/30/21 10:00 Weight - Most Recent: 45.541 kg Lab Results - Last 24 hrs: Laboratory Results - last 24 hr 01/29/21 01/29/21 01/29/21 Range/Units 16:12 16:25 16:25 WBC 10.3 H (4.0-10.0) x10^3/uL RBC 3.97 L (4.00-5.50) x10^6/uL Hgb 11.5 L D (12.0-16.0) g/dL Hct 34.9 (33.0-47.0) % MCV 87.9 (78.0-93.0) fL MCH 29.0 (26.0-32.0) pg MCHC 33.0 (32.0-36.0) g/dL RDW Coeff of Gamaliel 14.1 (10.0-15.0) % Plt Count 172 (130-400) x10^3/uL Neut % (Auto) 76.4 (50.0-80.0) % Lymph % (Auto) 14.5 L (25.0-50.0) % [place] % (Auto) 8.7 (2.0-11.0) % Eos % (Auto) 0.3 (0.0-4.0) % Baso % (Auto) 0.1 L (0.2-1.2) % PT 11.5 (9.9-12.5) SEC INR 1.0 L (2.0-3.5) APTT (25.6-32.8) SEC Sodium (136-145) mmol/L Potassium (3.5-5.1) mmol/L Chloride (98-107) mmol/L Carbon Dioxide (21-32) mmol/L Anion Gap (5-15) mmol/L BUN (7-18) mg/dL Creatinine (0.55-1.02) mg/dL Est Cr Clr Drug Dosing Estimated GFR (MDRD) Glucose (70-99) mg/dL Lactic Acid (0.4-2.0) mmol/L Calcium (8.5-10.1) mg/dL Corrected Calcium (8.5-10.1) mg/dL Magnesium (1.8-2.4) mg/dL Total Bilirubin (0.2-1.0) mg/dL AST (15-37) U/L ALT (14-59) U/L Alkaline Phosphatase (46-116) U/L Troponin I High Sens (<=51) ng/L Total Protein (6.4-8.2) g/dL Albumin (3.4-5.0) g/dL Globulin Albumin/Globulin Ratio Urine Color Yellow (YELLOW) Urine Appearance Clear (CLEAR) Urine pH 6.0 (5.0-8.0) Ur Specific [place] 1.020 Urine Protein 30 H (NEGATIVE) mg/dL Urine Glucose (UA) Negative (NEGATIVE) mg/dL Urine Ketones Trace H (NEGATIVE) mg/dL Urine Occult Blood Negative (NEGATIVE) Urine Nitrite Negative (NEGATIVE) Urine Bilirubin Negative (NEGATIVE) Urine Urobilinogen 0.2 (0.2) EU/dL Ur Leukocyte Esterase Negative (NEGATIVE) Urine RBC 0-5 (NOT SEEN) /HPF Urine WBC 10-20 H (NOT SEEN) /HPF Ur Squamous Epith Cells Rare (NOT SEEN) /HPF Amorphous Sediment Few Urine Bacteria Few H (NOT SEEN) /HPF Urine Mucus Few H (NOT SEEN) /LPF SARS-CoV-2 RNA (SHARA) (NEGATIVE) 01/29/21 01/29/21 01/29/21 Range/Units 16:25 16:25 16:25 WBC (4.0-10.0) x10^3/uL RBC (4.00-5.50) x10^6/uL Hgb (12.0-16.0) g/dL Hct (33.0-47.0) % MCV (78.0-93.0) fL MCH (26.0-32.0) pg MCHC (32.0-36.0) g/dL RDW Coeff of Gamaliel (10.0-15.0) % Plt Count (130-400) x10^3/uL Neut % (Auto) (50.0-80.0) % Lymph % (Auto) (25.0-50.0) % Gall[place] % (Auto) (2.0-11.0) % Eos % (Auto) (0.0-4.0) % Baso % (Auto) (0.2-1.2) % PT (9.9-12.5) SEC INR (2.0-3.5) APTT 23.2 L (25.6-32.8) SEC Sodium 141 (136-145) mmol/L Potassium 4.2 (3.5-5.1) mmol/L Chloride 104 (98-107) mmol/L Carbon Dioxide 26 (21-32) mmol/L Anion Gap 15.2 H (5-15) mmol/L BUN 26 H (7-18) mg/dL Creatinine 1.7 H (0.55-1.02) mg/dL Est Cr Clr Drug Dosing TNP Estimated GFR (MDRD) 28 Glucose 143 H (70-99) mg/dL Lactic Acid (0.4-2.0) mmol/L Calcium 9.0 (8.5-10.1) mg/dL Corrected Calcium 9.2 D (8.5-10.1) mg/dL Magnesium 2.0 (1.8-2.4) mg/dL Total Bilirubin 0.5 (0.2-1.0) mg/dL AST 25 (15-37) U/L ALT 24 (14-59) U/L Alkaline Phosphatase 80 (46-116) U/L Troponin I High Sens 10 (<=51) ng/L Total Protein 7.5 (6.4-8.2) g/dL Albumin 3.7 (3.4-5.0) g/dL Globulin 3.8 Albumin/Globulin Ratio 0.97 Urine Color (YELLOW) Urine Appearance (CLEAR) Urine pH (5.0-8.0) Ur Specific [place] Urine Protein (NEGATIVE) mg/dL Urine Glucose (UA) (NEGATIVE) mg/dL Urine Ketones (NEGATIVE) mg/dL Urine Occult Blood (NEGATIVE) Urine Nitrite (NEGATIVE) Urine Bilirubin (NEGATIVE) Urine Urobilinogen (0.2) EU/dL Ur Leukocyte Esterase (NEGATIVE) Urine RBC (NOT SEEN) /HPF Urine WBC (NOT SEEN) /HPF Ur Squamous Epith Cells (NOT SEEN) /HPF Amorphous Sediment Urine Bacteria (NOT SEEN) /HPF Urine Mucus (NOT SEEN) /LPF SARS-CoV-2 RNA (SHARA) (NEGATIVE) 01/29/21 01/29/21 01/29/21 Range/Units 16:25 16:33 20:30 WBC (4.0-10.0) x10^3/uL RBC (4.00-5.50) x10^6/uL Hgb (12.0-16.0) g/dL Hct (33.0-47.0) % MCV (78.0-93.0) fL MCH (26.0-32.0) pg MCHC (32.0-36.0) g/dL RDW Coeff of Gamaliel (10.0-15.0) % Plt Count (130-400) x10^3/uL Neut % (Auto) (50.0-80.0) % Lymph % (Auto) (25.0-50.0) % [place] % (Auto) (2.0-11.0) % Eos % (Auto) (0.0-4.0) % Baso % (Auto) (0.2-1.2) % PT (9.9-12.5) SEC INR (2.0-3.5) APTT (25.6-32.8) SEC Sodium (136-145) mmol/L Potassium (3.5-5.1) mmol/L Chloride (98-107) mmol/L Carbon Dioxide (21-32) mmol/L Anion Gap (5-15) mmol/L BUN (7-18) mg/dL Creatinine (0.55-1.02) mg/dL Est Cr Clr Drug Dosing Estimated GFR (MDRD) Glucose (70-99) mg/dL Lactic Acid 2.7 H* 1.1 (0.4-2.0) mmol/L Calcium (8.5-10.1) mg/dL Corrected Calcium (8.5-10.1) mg/dL Magnesium (1.8-2.4) mg/dL Total Bilirubin (0.2-1.0) mg/dL AST (15-37) U/L ALT (14-59) U/L Alkaline Phosphatase (46-116) U/L Troponin I High Sens (<=51) ng/L Total Protein (6.4-8.2) g/dL Albumin (3.4-5.0) g/dL Globulin Albumin/Globulin Ratio Urine Color (YELLOW) Urine Appearance (CLEAR) Urine pH (5.0-8.0) Ur Specific [place] Urine Protein (NEGATIVE) mg/dL Urine Glucose (UA) (NEGATIVE) mg/dL Urine Ketones (NEGATIVE) mg/dL Urine Occult Blood (NEGATIVE) Urine Nitrite (NEGATIVE) Urine Bilirubin (NEGATIVE) Urine Urobilinogen (0.2) EU/dL Ur Leukocyte Esterase (NEGATIVE) Urine RBC (NOT SEEN) /HPF Urine WBC (NOT SEEN) /HPF Ur Squamous Epith Cells (NOT SEEN) /HPF Amorphous Sediment Urine Bacteria (NOT SEEN) /HPF Urine Mucus (NOT SEEN) /LPF SARS-CoV-2 RNA (SHARA) Negative (NEGATIVE) 01/30/21 01/30/21 01/30/21 Range/Units 08:00 08:00 08:00 WBC 8.8 (4.0-10.0) x10^3/uL RBC 3.23 L (4.00-5.50) x10^6/uL Hgb 9.4 L D (12.0-16.0) g/dL Hct 29.1 L (33.0-47.0) % MCV 90.1 (78.0-93.0) fL MCH 29.1 (26.0-32.0) pg MCHC 32.3 (32.0-36.0) g/dL RDW Coeff of Gamaliel 14.1 (10.0-15.0) % Plt Count 138 (130-400) x10^3/uL Neut % (Auto) 74.5 (50.0-80.0) % Lymph % (Auto) 16.5 L (25.0-50.0) % [place] % (Auto) 8.6 (2.0-11.0) % Eos % (Auto) 0.2 (0.0-4.0) % Baso % (Auto) 0.2 (0.2-1.2) % PT (9.9-12.5) SEC INR (2.0-3.5) APTT (25.6-32.8) SEC Sodium 143 (136-145) mmol/L Potassium 3.7 (3.5-5.1) mmol/L Chloride 109 H (98-107) mmol/L Carbon Dioxide 25 (21-32) mmol/L Anion Gap 12.7 (5-15) mmol/L BUN 20 H (7-18) mg/dL Creatinine 1.4 H (0.55-1.02) mg/dL Est Cr Clr Drug Dosing 20.35 Estimated GFR (MDRD) 36 Glucose 97 (70-99) mg/dL Lactic Acid 0.6 (0.4-2.0) mmol/L Calcium 7.7 L (8.5-10.1) mg/dL Corrected Calcium 8.7 (8.5-10.1) mg/dL Magnesium (1.8-2.4) mg/dL Total Bilirubin 0.4 (0.2-1.0) mg/dL AST 22 (15-37) U/L ALT 19 (14-59) U/L Alkaline Phosphatase 61 (46-116) U/L Troponin I High Sens (<=51) ng/L Total Protein 5.9 L (6.4-8.2) g/dL Albumin 2.8 L (3.4-5.0) g/dL Globulin 3.1 Albumin/Globulin Ratio 0.90 Urine Color (YELLOW) Urine Appearance (CLEAR) Urine pH (5.0-8.0) Ur Specific [place] Urine Protein (NEGATIVE) mg/dL Urine Glucose (UA) (NEGATIVE) mg/dL Urine Ketones (NEGATIVE) mg/dL Urine Occult Blood (NEGATIVE) Urine Nitrite (NEGATIVE) Urine Bilirubin (NEGATIVE) Urine Urobilinogen (0.2) EU/dL Ur Leukocyte Esterase (NEGATIVE) Urine RBC (NOT SEEN) /HPF Urine WBC (NOT SEEN) /HPF Ur Squamous Epith Cells (NOT SEEN) /HPF Amorphous Sediment Urine Bacteria (NOT SEEN) /HPF Urine Mucus (NOT SEEN) /LPF SARS-CoV-2 RNA (SHARA) (NEGATIVE) Med Orders - Current: Current Medications Acetaminophen (Acetaminophen 325 Mg Tab) 650 mg PO Q4H PRN PRN Reason: Pain Albuterol (Albuterol Hfa 18 Gm Inhaler) 0 gm INH Q4H PRN PRN Reason: Shortness of Breath Albuterol (Albuterol 0.083% 2.5 Mg/3 Ml Neb Soln) 2.5 mg NEB Q4H PRN PRN Reason: Shortness of Breath Arformoterol Tartrate (Arformoterol 15 Mcg/2 Ml Neb Soln) 15 mcg NEB BIDRT [facility] Last Admin: 01/30/21 11:43 Dose: 15 mcg Documented by: Aspirin (Aspirin 81 Mg Tab.Ec) 81 mg PO DAILY [facility] Last Admin: 01/30/21 08:43 Dose: 81 mg Documented by: Atorvastatin Calcium (Atorvastatin 10 Mg Tab) 20 mg PO BEDTIME [facility] Bisacodyl (Bisacodyl 5 Mg Tab) 5 mg PO DAILY PRN PRN Reason: Constipation Budesonide (Budesonide 0.5 Mg/2 Ml Neb Susp) 0.5 mg NEB BIDRT [facility] Last Admin: 01/30/21 11:44 Dose: 0.5 mg Documented by: Cholecalciferol (Cholecalciferol (Vitamin D3) 25 Mcg Tab) 25 mcg PO DAILY [facility] Last Admin: 01/30/21 08:43 Dose: 25 mcg Documented by: Cyanocobalamin (Cyanocobalamin (Vitamin B12) 250 Mcg Tab) 500 mcg PO DAILY [facility] Last Admin: 01/30/21 08:38 Dose: 500 mcg Documented by: Donepezil HCl (Donepezil 10 Mg Tab) 10 mg PO DAILY [facility] Last Admin: 01/30/21 08:43 Dose: 10 mg Documented by: Sodium Chloride (Normal Saline) 1,000 mls @ 150 mls/hr IV ASDIRECTED [facility] Last Admin: 01/30/21 10:15 Dose: 150 mls/hr Documented by: Ipratropium Left Hand (Ipratropium 0.02% 0.5 Mg/2.5 Ml Neb Soln) 0.5 mg NEB Q6HRRT [facility] Last Admin: 01/30/21 11:43 Dose: 0.5 mg Documented by: Magnesium Oxide (Magnesium Oxide 400 Mg Tab) 400 mg PO DAILY [facility] Last Admin: 01/30/21 08:43 Dose: 400 mg Documented by: Metoprolol Tartrate (Metoprolol Tartrate 25 Mg Tab) 37.5 mg PO BID [facility] Last Admin: 01/30/21 08:38 Dose: 37.5 mg Documented by: Multivitamins/Minerals (Multivitamins With Iron/Calcium/Folic Acid/Minerals Tab) 1 tab PO DAILY [facility] Last Admin: 01/30/21 08:43 Dose: 1 tab Documented by: Fluticasone/Salmeterol 100/50 ( Own Supply) 1 puff INH BID [facility] Last Admin: 01/30/21 11:08 Dose: Not Given Documented by: Maxi-Vision/Aerds ( (Own Supply)) 1 each PO BID [facility] Umeclidinium Left Hand [Incruse Ellipta] 62.5 Mcg 1 puff PO DAILY [facility] Last Admin: 01/30/21 11:08 Dose: Not Given Documented by: Omeprazole (Omeprazole 20 Mg Cap.Cr) 40 mg PO DAILY [facility] Last Admin: 01/30/21 08:38 Dose: 40 mg Documented by: Sodium Chloride (Sodium Chloride 0.9% 10 Ml Syringe) 10 ml FLUSH ASDIRECTED PRN PRN Reason: Keep Vein Open Discontinued Medications Ceftriaxone Sodium (Ceftriaxone 2 Gm Vial) 2 gm IVPUSH STAT ONE Stop: 01/29/21 17:22 Last Admin: 01/29/21 17:30 Dose: 2 gm Documented by: Lorazepam (Lorazepam 2 Mg/Ml Sdv) 0.5 mg IVPUSH STAT ONE Stop: 01/29/21 19:36 Last Admin: 01/29/21 20:08 Dose: Not Given Documented by:
[2021-01-30] MEDS ORDERED: atorvaSTATin 10 MG Tab PO SCH (20:00)
[2021-01-31] MEDS ORDERED: MAXI VISION PO SCH (20:00)
[2021-01-31] MEDS ORDERED: [UNRECOGNIZED DRUG - OTHER] PO SCH (20:00)
== END 2021-01-30 13:10 ==
LOC: VM.ED 15:54 → VM.MS 17:47
PROVIDERS: ADMIT Physician Assistant; ATTEND Physician Assistant
DX: E86.0 Dehydration (principal); R41.0 Disorientation, unspecified; N30.90 Cystitis, unspecified without hematuria; B96.20 Unspecified Escherichia coli [E. coli] as the cause of diseases classified elsewhere; R74.02 Elevation of levels of lactic acid dehydrogenase [LDH]; I25.10 Atherosclerotic heart disease of native coronary artery without angina pectoris; I10 Essential (primary) hypertension; I25.2 Old myocardial infarction; J44.9 Chronic obstructive pulmonary disease, unspecified; Z20.822 Contact with and (suspected) exposure to COVID-19; Z88.0 Allergy status to penicillin; Z88.2 Allergy status to sulfonamides; Z88.8 Allergy status to other drugs, medicaments and biological substances; Z79.82 Long term (current) use of aspirin; Z79.899 Other long term (current) drug therapy; Z87.01 Personal history of pneumonia (recurrent); Z86.73 Personal history of transient ischemic attack (TIA), and cerebral infarction without residual deficits
CPT/HCPCS: 36415; 70450; 71045; 80053; 81001; 83605; 83735; 84484; 85025; 85610; 85730; 87040; 93005; 94640; 96374; 99217; 99220; 99285-25; A9270-GY; G0378; J0696; J7030; U0002

== ENCOUNTER 2021-05-16 12:56 | Emergency (ER) | payer MEDICARE, OTHER ==
--- NOTE | 2021-05-16 13:18 | EDM.PDOC ---
ED HPI GENERAL MEDICAL PROBLEM - General Chief Complaint: General Stated Complaint: ER Time Seen by Provider: 05/16/21 13:00 Source of Information: Reports: EMS, Family, [facility] Records History Limitations: Reports: Altered Mental Status - History of Present Illness INITIAL COMMENTS - FREE TEXT/NARRATIVE: Patient brought in by EMS from care center secondary to 3 to 4 minutes of questionable seizure-like activity and decreased LOC. I said patient was up walking to the bathroom and semipassed out they were able to get her before she hit the floor she had no trauma. Per custodial report patient was lying on the floor shaking her upper extremities. EMS arrival all vital signs are stable patient was presenting with the same presentation but more alert. 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 Per family patient was at baseline Friday and cognitive new fully what was going on talking with normal conversations She also has history of urinary tract infections which causes disorientation and has caused episodes like this before. Duration: Minutes: Associated Symptoms: Reports: Confusion - Related Data Allergies Allergy/AdvReac Type Severity Reaction Status Date / Time nitrofurantoin Allergy Unknown Cannot Verified 01/29/21 20:09 [From Macrobid] Remember nitrofurantoin Allergy Unknown Cannot Verified 01/29/21 20:09 macrocrystalline Remember [From Macrobid] Penicillins Allergy Unknown Itching Verified 01/29/21 20:09 Sulfa (Sulfonamide Allergy Cannot Verified 01/29/21 20:09 Antibiotics) Remember alendronate sodium AdvReac Intermediate Nausea Verified 01/29/21 20:09 [From Fosamax] Home Meds: Home Meds Fluticasone/Salmeterol [Advair 100-50] 1 puff INH BID 04/18/14 [History] Cholecalciferol (Vitamin D3) [Vitamin D3] 1,000 units PO DAILY 03/08/15 [History] Multivitamin with Minerals [Multiple Vitamin] 1 tab PO DAILY 03/08/15 [History] atorvaSTATin [Lipitor] 20 mg PO BEDTIME #30 tablet 03/17/15 [Rx] Acetaminophen [Tylenol] 650 mg PO Q4H PRN 07/19/16 [History] Umeclidinium [place] [Incruse Ellipta] 1 puff PO DAILY 07/19/16 [History] Cyanocobalamin (Vitamin B-12) [B-12 Dots] 500 mcg PO DAILY 03/07/17 [History] Magnesium Oxide 400 mg PO DAILY 08/18/18 [History] Omeprazole Magnesium [Prilosec Otc] 40 mg PO DAILY 12/09/18 [History] Metoprolol Tartrate [Lopressor] 37.5 mg PO BID #90 tablet 10/26/20 [Rx] Aspirin [Halfprin] 81 mg PO DAILY 01/29/21 [History] Donepezil HCl [Aricept] 10 mg PO DAILY 01/29/21 [History] bisacodyL [Bisacodyl] 5 mg PO DAILY PRN 01/29/21 [History] Albuterol Sulfate [Albuterol Sulfate Hfa] 2 each IH Q4H PRN 01/30/21 [History] Vit A/Vit C/Vit E/Zinc/Copper [Preservision Areds Softgel] 1 each PO BID 01/30/21 [History] Past Medical History HEENT History: Reports: Cataract, Glaucoma, Macular Degeneration, Other (See Below) Other HEENT History: pseudophakos. presbyopia Cardiovascular History: Reports: CAD, High Cholesterol, Hypertension, [place], Syncope Other Cardiovascular History: vascular dementia. cerebral vascular disease. non STEMI. other specified cardiac dysrhythmias Respiratory History: Reports: COPD, Pneumonia, Recurrent Other Respiratory History: emphysema, pneumonia. pulmonary nodules/lesions, multiple Gastrointestinal History: Reports: Colon Polyp, Helicobacter Pylori, Pancreatitis, PUD Other Gastrointestinal History: sotelo's esophagus, pancreatic duct abnormality Genitourinary History: Reports: Hydronephrosis, Urinary Incontinence Other Genitourinary History: Mass right kidney BAD CLOTH CHECKER History: Reports: None Other BAD CLOTH CHECKER History: vaginal discharge Musculoskeletal History: Reports: Back Pain, Chronic, Osteoporosis Other Musculoskeletal History: chronic pain left knee,. knee strain. pelvic contusion. pelvic pain. Bilateral hip pain. thigh pain. Closed compression fracture of first lumbar vertebra Neurological History: Reports: CVA Other Neuro History: cerebral amyloid angiopathy. ICH-intracarebral hemorrhage. abnormal MRI of head. intermittant confusion Psychiatric History: Reports: None, Dementia Other Psychiatric History: smoking. cognitive dysfunction. malaise and fatigue. tobacco use disorder. high risk medication use Endocrine/Metabolic History: Reports: Hypomagnesemia, Osteoporosis Other Endocrine/Metabolic History: underwt. hyperglycemia. hypophosphatemia Hematologic History: Reports: Anemia Other Hematologic History: hypomagnesemiavit d deficiency. red blood cell antibody positive Immunologic History: Reports: None Oncologic (Cancer) History: Reports: Breast Dermatologic History: Reports: Other (See Below) Other Dermatologic History: skin lesion of face - Infectious Disease History Infectious Disease History: Reports: None - Past Surgical History HEENT Surgical History: Reports: Cataract Surgery Other HEENT Surgeries/Procedures: pseudophakos. presbyopia Cardiovascular Surgical History: Reports: None Respiratory Surgical History: Reports: None GI Surgical History: Reports: Cholecystectomy Female Surgical History: Reports: D&C, Mastectomy, Oophorectomy, Tubal Ligation Endocrine Surgical History: Reports: None Neurological Surgical History: Reports: None Musculoskeletal Surgical History: Reports: Hip Replacement, Joint Replacement Oncologic Surgical History: Reports: Mastectomy Social & Family History - Family History Family Medical History: No Pertinent Family History Cardiac: Reports: [place] Respiratory: Reports: COPD OBGYN: Reports: Musculoskeletal: Reports: Osteoarthritis Oncologic: Reports: Breast, Other (See Below) - Caffeine Use Caffeine Use: Reports: Coffee - Living Situation & Occupation Living situation: Reports: , Assisted Living Occupation: Retired ED ROS GENERAL - Review of Systems Review Of Systems: See Below (Not able to obtain from the patient) Constitutional: Reports: No Symptoms HEENT: Reports: No Symptoms Respiratory: Reports: No Symptoms Cardiovascular: Reports: No Symptoms Endocrine: Reports: No Symptoms GI/Abdominal: Reports: No Symptoms : Reports: No Symptoms Musculoskeletal: Reports: No Symptoms Skin: Reports: No Symptoms Neurological: Reports: Confusion, Seizure Psychiatric: Reports: No Symptoms Hematologic/Lymphatic: Reports: No Symptoms Immunologic: Reports: No Symptoms - Physical Exam Exam: See Below Exam Limited By: Altered Mental Status General Appearance: Alert, WD/WN, No Apparent Distress, Other (PT is smiling appears to be semipost ictal she tracks light and provider around the room answers no to every question though she does know her name) Eye Exam: Bilateral Eye: EOMI, Normal Inspection, PERRL Ears: Normal External Exam, Normal Canal, Hearing Grossly Normal, Normal TMs Nose: Normal Inspection, Normal Mucosa, No Blood Throat/Mouth: Normal Inspection, Normal Lips, Normal Teeth, Normal Gums, Normal Oropharynx, Normal Voice, No Airway Compromise Head Exam: Atraumatic, Normocephalic Neck: Normal Inspection, Supple, Non-Tender, Full Range of Motion Respiratory/Chest: No Respiratory Distress, Lungs Clear, Normal Breath Sounds, No Accessory Muscle Use, Chest Non-Tender Cardiovascular: Normal Peripheral Pulses, Regular Rate, Rhythm, No Edema, No Gallop, No JVD, No Murmur, No Rub GI/Abdominal: Normal Bowel Sounds, Soft, Non-Tender, No Organomegaly, No Distention. 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 No: Oriented, CN II-XII Intact DTR: 2+: Patella (R), Patella (L) Back Exam: Full Range of Motion Extremities: Normal Inspection, Normal Range of Motion, Non-Tender, No Pedal Edema, Normal Capillary Refill Psychiatric: Normal Affect, Normal Mood Skin Exam: Warm, Dry, Intact, Normal Color, No Rash Course - Vital Signs Text/Narrative:: CT head no acute findings noted White blood cell count 10.3 BUN/creatinine 19/1.8 Urinalysis positive nitrites noted Spoke with family in regards to treatment at this time they wish her to go back to the care center secondary to her being familiar with surroundings. They are okay with treatment of p.o. antibiotics as with that is what they had last time and it worked well. We will treat with Levaquin 500 mg 1 p.o. daily x7 days and have follow-up with primary care provider in the next 2 to 3 days. - Orders/Labs/Meds Orders: Active Orders 24 hr Category Date Time Status EKG 12 Lead [EKG Documentation Completion] [RC] STAT Care 05/16/21 13:06 Active CULTURE URINE [RM] Urgent Lab 05/16/21 14:00 Received Levofloxacin/Dextrose 5%-Water [Levaquin in D5W 500 MG/ Med 05/16/21 14:27 Active 100 ML] 500 mg Premix Bag 1 bag IV ONETIME Sodium Chloride 0.9% [Normal Saline] 500 ml Med 05/16/21 14:29 Active IV ONETIME Medication Orders Levofloxacin/Dextrose 500 mg/ (Premix) 100 mls @ 100 mls/hr IV ONETIME ONE Stop: 05/16/21 15:26 Last Admin: 05/16/21 14:41 Dose: 100 mls/hr Documented by: SAMANTHA Sodium Chloride (Normal Saline) 500 mls @ 500 mls/hr IV ONETIME ONE Stop: 05/16/21 15:28 Last Admin: 05/16/21 14:41 Dose: 500 mls/hr Documented by: SAMANTHA Labs: Laboratory Tests 05/16/21 05/16/21 05/16/21 Range/Units 13:07 13:10 13:10 WBC 10.3 H (4.0-10.0) x10^3/uL RBC 3.94 L (4.00-5.50) x10^6/uL Hgb 11.5 L (12.0-16.0) g/dL Hct 34.9 (33.0-47.0) % MCV 88.6 (78.0-93.0) fL MCH 29.2 (26.0-32.0) pg MCHC 33.0 (32.0-36.0) g/dL RDW Coeff of Gamaliel 13.3 (10.0-15.0) % Plt Count 186 (130-400) x10^3/uL Immature Gran % (Auto) 0.20 (0.00-0.43) % Neut % (Auto) 69.5 (50.0-80.0) % Lymph % (Auto) 22.1 L (25.0-50.0) % [place] % (Auto) 7.2 (2.0-11.0) % Eos % (Auto) 0.8 (0.0-4.0) % Baso % (Auto) 0.2 (0.2-1.2) % Neut # (Auto) 7.2 (1.8-7.7) x10^3/uL Lymph # (Auto) 2.3 (1.0-4.8) x10^3/uL [place] # (Auto) 0.7 (0.0-0.8) x10^3/uL Eos # (Auto) 0.1 (0.0-0.5) x10^3/uL Baso # (Auto) 0.0 (0.0-0.2) x10^3/uL Immature Gran # (Auto) 0.02 (0.00-0.07) x10^3/uL PT 11.1 (9.9-12.5) SEC INR 1.0 L (2.0-3.5) APTT 23.9 L (25.6-32.8) SEC Sodium (136-145) mmol/L Potassium (3.5-5.1) mmol/L Chloride (98-107) mmol/L Carbon Dioxide (21-32) mmol/L Anion Gap (5-15) mmol/L BUN (7-18) mg/dL Creatinine (0.55-1.02) mg/dL Est Cr Clr Drug Dosing Estimated GFR (MDRD) Glucose (70-99) mg/dL POC Glucose 191 H (70-99) mg/dL Calcium (8.5-10.1) mg/dL Urine Color (YELLOW) Urine Appearance (CLEAR) Urine pH (5.0-8.0) Ur Specific [place] Urine Protein (NEGATIVE) mg/dL Urine Glucose (UA) (NEGATIVE) mg/dL Urine Ketones (NEGATIVE) mg/dL Urine Occult Blood (NEGATIVE) Urine Nitrite (NEGATIVE) Urine Bilirubin (NEGATIVE) Urine Urobilinogen (0.2) EU/dL Ur Leukocyte Esterase (NEGATIVE) Urine RBC (NOT SEEN) /HPF Urine WBC (NOT SEEN) /HPF Ur Squamous Epith Cells (NOT SEEN) /HPF Urine Bacteria (NOT SEEN) /HPF Urine Mucus (NOT SEEN) /LPF 05/16/21 05/16/21 Range/Units 13:10 14:00 WBC (4.0-10.0) x10^3/uL RBC (4.00-5.50) x10^6/uL Hgb (12.0-16.0) g/dL Hct (33.0-47.0) % MCV (78.0-93.0) fL MCH (26.0-32.0) pg MCHC (32.0-36.0) g/dL RDW Coeff of Gamaliel (10.0-15.0) % Plt Count (130-400) x10^3/uL Immature Gran % (Auto) (0.00-0.43) % Neut % (Auto) (50.0-80.0) % Lymph % (Auto) (25.0-50.0) % [place] % (Auto) (2.0-11.0) % Eos % (Auto) (0.0-4.0) % Baso % (Auto) (0.2-1.2) % Neut # (Auto) (1.8-7.7) x10^3/uL Lymph # (Auto) (1.0-4.8) x10^3/uL [place] # (Auto) (0.0-0.8) x10^3/uL Eos # (Auto) (0.0-0.5) x10^3/uL Baso # (Auto) (0.0-0.2) x10^3/uL Immature Gran # (Auto) (0.00-0.07) x10^3/uL PT (9.9-12.5) SEC INR (2.0-3.5) APTT (25.6-32.8) SEC Sodium 141 (136-145) mmol/L Potassium 4.2 (3.5-5.1) mmol/L Chloride 103 (98-107) mmol/L Carbon Dioxide 27 (21-32) mmol/L Anion Gap 15.2 H (5-15) mmol/L BUN 19 H (7-18) mg/dL Creatinine 1.8 H (0.55-1.02) mg/dL Est Cr Clr Drug Dosing TNP Estimated GFR (MDRD) 27 Glucose 191 H (70-99) mg/dL POC Glucose (70-99) mg/dL Calcium 9.2 D (8.5-10.1) mg/dL Urine Color Yellow (YELLOW) Urine Appearance Slightly cloudy H (CLEAR) Urine pH 6.0 (5.0-8.0) Ur Specific [place] 1.025 Urine Protein 100 H (NEGATIVE) mg/dL Urine Glucose (UA) Negative (NEGATIVE) mg/dL Urine Ketones Negative (NEGATIVE) mg/dL Urine Occult Blood Negative (NEGATIVE) Urine Nitrite Positive H (NEGATIVE) Urine Bilirubin Negative (NEGATIVE) Urine Urobilinogen 0.2 (0.2) EU/dL Ur Leukocyte Esterase Small H (NEGATIVE) Urine RBC 0-5 (NOT SEEN) /HPF Urine WBC 10-20 H (NOT SEEN) /HPF Ur Squamous Epith Cells Rare (NOT SEEN) /HPF Urine Bacteria Many H (NOT SEEN) /HPF Urine Mucus Not seen (NOT SEEN) /LPF Meds: Medications Generic Name Dose Route Start Last Admin Trade Name Rejiq PRN Reason Stop Dose Admin Levofloxacin/Dextrose 500 mg/ 100 mls @ 100 mls/hr 05/16/21 14:27 05/16/21 14:41 Premix IV 05/16/21 15:26 100 mls/hr ONETIME ONE Administration Sodium Chloride 500 mls @ 500 mls/hr 05/16/21 14:29 05/16/21 14:41 Normal Saline IV 05/16/21 15:28 500 mls/hr ONETIME ONE Administration - Radiology Interpretation Free Text/Narrative:: CBC BMP coags troponin EKG CT head urinalysis Departure - Departure Time of Disposition: 14:25 Disposition: DC/Tfer to [facility] 61 Condition: Good Clinical Impression: Confusion, Urinary tract infection, Observed seizure-like activity - Discharge Information *PRESCRIPTION DRUG MONITORING PROGRAM REVIEWED*: No *COPY OF PRESCRIPTION DRUG MONITORING REPORT IN PATIENT ADDY: No Referrals: Aniya Laws MD [Primary Care Provider] - Forms: ED Department Discharge Additional Instructions: Return to custodial Make sure the patient takes her antibiotic Levaquin 500 mg 1 tablet every day x6 days first dose was given in the ER Make sure you encourage patient to drink plenty of fluids make sure you give the patient probiotics or yogurt while on her antibiotics for the next 7 to 10 days Have her follow-up with her primary care provider in the next 2 to 3 days Return the patient to the emergency room if anything changes or gets worse - Problem List & Annotations (1) Dementia in Alzheimer's disease SNOMED Code(s): 99170453 Code(s): G30.9 - ALZHEIMER'S DISEASE, UNSPECIFIED; F02.80 - DEMENTIA IN OTH DISEASES CLASSD ELSWHR W/O BEHAVRL DISTURB Status: Chronic Current Visit: No (2) UTI (urinary tract infection) SNOMED Code(s): 05044670 Code(s): N39.0 - URINARY TRACT INFECTION, SITE NOT SPECIFIED Status: Acute Current Visit: Yes Onset Date: ~07/20/16 (3) Confusion SNOMED Code(s): 488201723 Code(s): R41.0 - DISORIENTATION, UNSPECIFIED Status: Acute Current Visit: Yes (4) Observed seizure-like activity SNOMED Code(s): 158878331 Code(s): R56.9 - UNSPECIFIED CONVULSIONS Status: Acute Current Visit: Yes - My Orders Last 24 Hours: My Active Orders 05/16/21 13:06 EKG 12 Lead [EKG Documentation Completion] [RC] STAT 05/16/21 14:00 CULTURE URINE [RM] Urgent 05/16/21 14:27 Levofloxacin/Dextrose 5%-Water [Levaquin in D5W 500 MG/100 ML] 500 mg Premix Bag 1 bag IV ONETIME 05/16/21 14:29 Sodium Chloride 0.9% [Normal Saline] 500 ml IV ONETIME - Assessment/Plan Last 24 Hours: My Active Orders 05/16/21 13:06 EKG 12 Lead [EKG Documentation Completion] [RC] STAT 05/16/21 14:00 CULTURE URINE [RM] Urgent 05/16/21 14:27 Levofloxacin/Dextrose 5%-Water [Levaquin in D5W 500 MG/100 ML] 500 mg Premix Bag 1 bag IV ONETIME 05/16/21 14:29 Sodium Chloride 0.9% [Normal Saline] 500 ml IV ONETIME
[2021-05-16 13:33] LABS: CHLORIDE,CL 103 mmol/L (98-107); SODIUM,NA 141 mmol/L (136-145)
[2021-05-16 13:34] LABS: ANION GAP 15.2 mmol/L (5-15)
[2021-05-16 13:37] LABS: PTT,PARTIAL THROMBOPLSTIN TIME 23.9 SEC (25.6-32.8)
--- NOTE | 2021-05-16 13:45 | CT ---
[id number] CT/CT Head Stroke Protocol EXAM: NONCONTRAST HEAD CT INDICATION: STROKE PROTOCOL, ? CVA. COMPARISON: None. DISCUSSION: There is mild generalized atrophy. Moderate to advanced confluent periventricular hypoattenuation is similar to the prior study and most compatible with chronic small vessel ischemia. Similarly, there are basal ganglia lacunar infarcts without definite interval change. No mass effect or midline shift. No acute hemorrhage or extra-axial fluid collection. No acute territorial infarct is identified. Chronic small vessel ischemic changes could obscure early acute disease. A limited look at the orbits and paranasal sinuses is unremarkable. Results called at 1:40 PM on 05/16/2021. IMPRESSION: 1. Moderate to advanced chronic small vessel ischemia and mild generalized atrophy. 2. No definite acute findings. Evaristo Mark MD 05/16/21 [id number] Thank you for allowing us to participate in the care of your patient.
[2021-05-16] MEDS ORDERED: Levofloxacin/Dextrose 5%-Water 500 MG in Premix Bag 1 BAG IV ONE (14:27)
[2021-05-16] MEDS ORDERED: Sodium Chloride 0.9% 500 ML IV ONE (14:29)
== END 2021-05-16 16:00 ==
LOC: VM.ED 12:56
DX: R41.0 Disorientation, unspecified (principal); N39.0 Urinary tract infection, site not specified; R56.9 Unspecified convulsions; I25.10 Atherosclerotic heart disease of native coronary artery without angina pectoris; E78.00 Pure hypercholesterolemia, unspecified; I25.2 Old myocardial infarction; I10 Essential (primary) hypertension; J44.9 Chronic obstructive pulmonary disease, unspecified; Z79.899 Other long term (current) drug therapy; Z88.1 Allergy status to other antibiotic agents; Z88.2 Allergy status to sulfonamides
CPT/HCPCS: 36415; 70450; 80048; 81001; 82947; 85025; 85610; 85730; 87086; 87088; 87186; 93005; 96365; 99284; 99285-25; J1956; J7030